=== PATIENT | male | born 1960 | race African-American/Black ===

== ENCOUNTER 2018-03-29 10:07 | Inpatient (IN) | payer OTHER ==
--- NOTE | 2018-03-29 10:52 | PDOC ---
History of Present Illness - General Chief Complaint: Wound Stated Complaint: FEVER, WOUND DISCHARGE Time Seen by Provider: 03/29/18 10:28 History Source: Patient Exam Limitations: No Limitations - History of Present Illness Initial Comments: CHIEF COMPLAINT: 57 y/o afebrile male with PMH of HTN, CHF with defibrillator and IDDM c/o worsening left foot wound. HISTORY OF PRESENT ILLNESS: The patient had most of his left big toe and all of his left second toe amputated 1 year ago. He states he did well and his healing was progressing well until about 2.5 months ago when it started getting worse. He was going for wound care at another facility but would like a 2nd opinion and admits there has been pus draining from his big toe for a few weeks and he admits to intermittent tactile fevers. He denies streaking and all other symptoms. Vital signs on arrival are within normal limits. REVIEW OF SYSTEMS: GENERAL/CONSTITUTIONAL: Tactile fever/chills. No weakness. No weight change. MUSCULOSKELETAL: No joint or muscle swelling or pain. No neck or back pain. SKIN: +draining wound to left big toe NEUROLOGIC: No headache, vertigo, loss of consciousness, or loss of sensation. PHYSICAL EXAM: VITAL_SIGNS: within normal limits GENERAL_APPEARANCE: alert, cooperative, no obvious discomfort. MENTAL_STATUS: speech clear, oriented X 3, responds appropriately to questions. NEURO: motor intact and sensory intact in injured extremity. EXTREMITIES: Left foot with significant brawny edema. Extremely swollen left big toe with open wound to plantar surface with active drainage of purulent fluid. No streaking or warm. Tip of big toe is TTP. SKIN: warm, dry, good color. Past History - Past Medical History Allergies/Adverse Reactions: Allergies Allergy/AdvReac Type Severity Reaction Status Date / Time No Known Allergies Allergy Verified 03/29/18 10:09 Home Medications: Ambulatory Orders Furosemide [Lasix] 40 mg PO DAILY 03/29/18 Insulin Aspart [Novolog] 100 unit SQ DAILY 03/29/18 Insulin Glargine,Hum.rec.anlog [Lantus] 45 unit SQ DAILY 03/29/18 Ramipril [Altace] 2.5 mg PO DAILY 03/29/18 COPD: No Diabetes: Yes HTN: Yes Other medical history: NEUROPATHY - Suicide/Smoking/Psychosocial Hx Smoking History: Current every day smoker Have you smoked in the past 12 months: Yes Number of Cigarettes Smoked Daily: 20 Information on smoking cessation initiated: Yes 'Breaking Loose' booklet given: 03/29/18 Hx Alcohol Use: No Drug/Substance Use Hx: Yes (COCCAINE) Substance Use Type: Cocaine *Physical Exam - Vital Signs Last Vital Signs Temp Pulse Resp BP Pulse Ox 98.2 F 94 H 18 142/81 100 03/29/18 10:10 03/29/18 10:10 03/29/18 10:10 03/29/18 10:10 03/29/18 10:10 ED Treatment Course - LABORATORY CBC & Chemistry Diagram: 03/29/18 11:50 03/29/18 11:50 Medical Decision Making - Medical Decision Making A/P: 57 y/o male with diabetic wound infection. Plan is as follows: 1. toe xray 2. Labs Toe xray IMPRESSION: destructive process of the left big toe. SOft tissue swelling and soft tissue air. concerned for Osteomyelitis. Will admit to Dr. eaton. Dr. Eaton accepts admission. Wants Dr. Ventura consult. Will start patient on IV Levaquin. *DC/Admit/Observation/Transfer Diagnosis at time of Disposition: Toe infection Cellulitis and abscess of toe Qualifiers: Laterality: left Qualified Code(s): L03.032 - Cellulitis of left toe - Discharge Dispostion Condition at time of disposition: Stable Decision to Admit order: Yes - Referrals Referrals: Sera Tim MD [Primary Care Provider] - - Patient Instructions - Post Discharge Activity
[2018-03-29 12:05] LABS: BASO % 0.7 % (0-2.0); EOS % 3.3 % (0-4.5); HEMATOCRIT 37.3 % (35.4-49); HEMOGLOBIN 12.3 GM/dL (11.7-16.9); LYMPH % 22.5 % (8-40); MCH 28.4 pg (25.7-33.7); MEAN PLT VOLUME 8.8 fl (7.5-11.1); MONO % 4.6 % (3.8-10.2); NEUT % 68.9 % (42.8-82.8); PLATELET COUNT 275 K/MM3 (134-434); RBC 4.34 M/mm3 (4.00-5.60); RDW 15.3 % (11.9-15.9); WHITE BLOOD COUNT 9.3 K/mm3 (4.0-10.0)
[2018-03-29 12:37] LABS: ALBUMIN 2.8 g/dl (3.4-5.0); ANION GAP 6 (8-16); BLOOD UREA NITROGEN 8 mg/dL (7-18); CALCIUM 8.7 mg/dL (8.5-10.1); CHLORIDE 102 mmol/L (98-107); CO2 30 mmol/L (21-32); GLUCOSE,RANDOM 116 mg/dL (74-106); SODIUM 138 mmol/L (136-145)
[2018-03-29 12:41] LABS: ALK PHOS 98 U/L (45-117); BILIRUBIN,TOTAL 0.4 mg/dL (0.2-1.0); SGOT/AST 12 U/L (15-37); SGPT/ALT 15 U/L (12-78); TOT PROT 8.6 g/dl (6.4-8.2)
--- NOTE | 2018-03-29 16:33 | HP ---
Admitting History and Physical - Primary Care Physician PCP: Tomas Fong - Admission History of Present Illness: The patient had most of his left big toe and all of his left second toe amputated 1 year ago. He states he did well and his healing was progressing well until about 2.5 months ago when it started getting worse. He was going for wound care at another facility but would like a 2nd opinion and admits there has been pus draining from his big toe for a few weeks and he admits to intermittent tactile fevers. He denies streaking and all other symptoms. - Smoking History Smoking history: Current every day smoker Have you smoked in the past 12 months: Yes Aproximately how many cigarettes per day: 20 - Alcohol/Substance Use Hx Alcohol Use: No Home Medications - Allergies Allergies/Adverse Reactions: Allergies Allergy/AdvReac Type Severity Reaction Status Date / Time No Known Allergies Allergy Verified 03/29/18 10:09 - Home Medications Home Medications: Ambulatory Orders Furosemide [Lasix] 40 mg PO DAILY 03/29/18 Insulin Aspart [Novolog] 100 unit SQ ASDIR 03/29/18 Insulin Glargine,Hum.rec.anlog [Lantus] 45 unit SQ DAILY 03/29/18 Pregabalin [Lyrica] 100 mg PO BID 03/29/18 Ramipril [Altace] 2.5 mg PO DAILY 03/29/18 Physical Examination Vital Signs: Vital Signs Temperature 98.4 F 03/29/18 15:32 Pulse Rate 82 03/29/18 15:32 Respiratory Rate 20 03/29/18 15:32 Blood Pressure 153/88 03/29/18 15:32 O2 Sat by Pulse Oximetry (%) 100 03/29/18 10:10 Constitutional: Yes: No Distress HENT: Yes: Atraumatic Neck: Yes: Supple Cardiovascular: Yes: Regular Rate and Rhythm Respiratory: Yes: CTA Bilaterally Gastrointestinal: Yes: Normal Bowel Sounds Extremities: Yes: Other (left toe osteo) Neurological: Yes: Alert, Oriented Labs: CBC, BMP 03/29/18 11:50 03/29/18 11:50 Problem List - Problems (1) Cellulitis and abscess of toe Assessment/Plan: on iv abx xray done d/w podiatry for OR next week Code(s): L03.039 - CELLULITIS OF UNSPECIFIED TOE; L02.619 - CUTANEOUS ABSCESS OF UNSPECIFIED FOOT Qualifiers: Laterality: left Qualified Code(s): L03.032 - Cellulitis of left toe; L02.612 - Cutaneous abscess of left foot (2) Diabetes Assessment/Plan: on insulin bgms sliding scale Code(s): E11.9 - TYPE 2 DIABETES MELLITUS WITHOUT COMPLICATIONS Assessment/Plan Laboratory Tests 03/29/18 03/29/18 03/29/18 10:32 11:50 11:50 WBC 9.3 RBC 4.34 Hgb 12.3 Hct 37.3 MCV 86.0 MCH 28.4 MCHC 33.0 RDW 15.3 Plt Count 275 MPV 8.8 Absolute Neuts (auto) 6.4 Neutrophils % 68.9 Lymphocytes % 22.5 Monocytes % 4.6 Eosinophils % 3.3 Basophils % 0.7 Nucleated RBC % 0 Sodium 138 Potassium 4.0 Chloride 102 Carbon Dioxide 30 Anion Gap 6 L BUN 8 Creatinine 1.0 Creat Clearance w eGFR > 60 POC Glucometer 123.66752 Random Glucose 116 H Lactic Acid Calcium 8.7 Total Bilirubin 0.4 AST 12 L ALT 15 Alkaline Phosphatase 98 Total Protein 8.6 H Albumin 2.8 L Urine Color Urine Appearance Urine pH Ur Specific [place] Urine Protein Urine Glucose (UA) Urine Ketones Urine Blood Urine Nitrite Urine Bilirubin Urine Urobilinogen Ur Leukocyte Esterase Urine WBC (Auto) Urine RBC (Auto) Ur Epithelial Cells Urine Mucus 03/29/18 03/29/18 03/29/18 11:50 17:09 17:35 WBC RBC Hgb Hct MCV MCH MCHC RDW Plt Count MPV Absolute Neuts (auto) Neutrophils % Lymphocytes % Monocytes % Eosinophils % Basophils % Nucleated RBC % Sodium Potassium Chloride Carbon Dioxide Anion Gap BUN Creatinine Creat Clearance w eGFR POC Glucometer 235 Random Glucose Lactic Acid 1.2 Calcium Total Bilirubin AST ALT Alkaline Phosphatase Total Protein Albumin Urine Color Dkyellow Urine Appearance Clear Urine pH 5.0 Ur Specific [place] 1.024 Urine Protein 2+ H Urine Glucose (UA) Negative Urine Ketones Negative Urine Blood Negative Urine Nitrite Negative Urine Bilirubin Negative Urine Urobilinogen 4.0 e.u/dl Ur Leukocyte Esterase Negative Urine WBC (Auto) 3 Urine RBC (Auto) 2 Ur Epithelial Cells Rare Urine Mucus Few Active Medications Generic Name Dose Route Start Last Admin Trade Name Freq PRN Reason Stop Dose Admin Acetaminophen 650 mg 03/29/18 16:34 03/29/18 17:17 Tylenol - PO 650 mg Q6H PRN Administration FEVER Furosemide 40 mg 03/30/18 10:00 Lasix - PO DAILY [facility] Heparin Sodium (Porcine) 5,000 unit 03/29/18 22:00 Heparin - SQ BID [facility] Piperacillin Sod/Tazobactam 50 mls @ 100 mls/hr 03/29/18 18:00 03/29/18 17:17 Sod 3.375 gm/ Dextrose IVPB 100 mls/hr Q8H-IV [facility] Administration Protocol Insulin Aspart 1 vial 03/29/18 22:00 03/29/18 17:33 Novolog Vial Sliding Scale - SQ 6 units ACHS [facility] Administration Protocol Insulin Detemir 45 units 03/30/18 07:00 Levemir Vial SQ 0700 [facility] Nicotine 21 mg 03/29/18 20:15 Nicoderm Patch - TD DAILY [facility] Oxycodone HCl 10 mg 03/29/18 16:34 03/29/18 17:15 Roxicodone - PO 10 mg Q6H PRN Administration PAIN LEVEL 4 - 6 Ramipril 2.5 mg 03/30/18 10:00 Altace - PO DAILY [facility]
--- NOTE | 2018-03-29 16:39 | CON.ID ---
Consult Consult Specialty:: infectious diseases Reason for Consultation:: infected lt toe - History of Present Illness Chief Complaint: pus from the left toe and non healing wound of the left toe History of Present Illness: 57 y/o afebrile male with PMH of HTN, CHF with defibrillator and IDDM c/o worsening left foot wound. this patient coming in because he noticed pus draining from the left toe The patient had most of his left big toe and all of his left second toe amputated 1 year ago. He states he did well and his healing was progressing well until about 2.5 months ago when it started getting worse. He was going for wound care at another facility but would like a 2nd opinion and admits there has been pus draining from his big toe for a few weeks and he admits to intermittent tactile fevers. patient also mentions that all of his skin over the toe very ragged and pus comng out also he has two openings present currently he is stable and no other issues - History Source History Provided By: Patient Limitations to Obtaining History: No Limitations - Alcohol/Substance Use Hx Alcohol Use: No - Smoking History Smoking history: Current every day smoker Have you smoked in the past 12 months: Yes Aproximately how many cigarettes per day: 20 Home Medications - Allergies Allergies/Adverse Reactions: Allergies Allergy/AdvReac Type Severity Reaction Status Date / Time No Known Allergies Allergy Verified 03/29/18 10:09 - Home Medications Home Medications: Ambulatory Orders Furosemide [Lasix] 40 mg PO DAILY 03/29/18 Insulin Aspart [Novolog] 100 unit SQ ASDIR 03/29/18 Insulin Glargine,Hum.rec.anlog [Lantus] 45 unit SQ DAILY 03/29/18 Pregabalin [Lyrica] 100 mg PO BID 03/29/18 Ramipril [Altace] 2.5 mg PO DAILY 03/29/18 Review of Systems - Review of Systems Constitutional: reports: Fever Eyes: reports: No Symptoms HENT: reports: No Symptoms Neck: reports: No Symptoms Cardiovascular: reports: No Symptoms Respiratory: reports: No Symptoms Gastrointestinal: reports: No Symptoms Musculoskeletal: reports: No Symptoms Integumentary: reports: Erythema, Wound Neurological: reports: No Symptoms Endocrine: reports: No Symptoms Hematology/Lymphatic: reports: No Symptoms Psychiatric: reports: No Symptoms Physical Exam Vital Signs: Vital Signs Temperature 98.4 F 03/29/18 15:32 Pulse Rate 82 03/29/18 15:32 Respiratory Rate 20 03/29/18 15:32 Blood Pressure 153/88 03/29/18 15:32 O2 Sat by Pulse Oximetry (%) 100 03/29/18 10:10 Constitutional: Yes: Well Nourished, No Distress, Calm, Obese Neck: Yes: Supple Cardiovascular: Yes: Regular Rate and Rhythm Respiratory: Yes: Regular, CTA Bilaterally Gastrointestinal: Yes: Normal Bowel Sounds, Soft Musculoskeletal: Yes: WNL Extremities: Yes: Erythema (of the left foot), Other Wound/Incision: Yes: Draining (left toes with non healing ulcers) Neurological: Yes: Alert, Oriented Psychiatric: Yes: Alert, Oriented Labs: CBC, BMP 03/29/18 11:50 03/29/18 11:50 Imaging - Results X-ray: Report Reviewed, Image Reviewed Assessment/Plan Problem List - Problems (1) Cellulitis and abscess of toe Code(s): L03.039 - CELLULITIS OF UNSPECIFIED TOE; L02.619 - CUTANEOUS ABSCESS OF UNSPECIFIED FOOT Qualifiers: Laterality: left Qualified Code(s): L03.032 - Cellulitis of left toe; L02.612 - Cutaneous abscess of left foot 2 osteo of the toe multiple medical problems looking at the patients toe i ahve no doubt that the patient has osteo plan will start patient on abx podiatry patient probably will need amputation rest continue current mgmt will ask for imaging studies
[2018-03-29] MEDS ORDERED: PIPERACILLIN/TAZOBACTAM 3.375 GM VIAL IVPB ONE (17:14)
[2018-03-29] MEDS ORDERED: DEXTROSE 5%-WATER - 50 ML IVPB ONE (17:14)
[2018-03-29] MEDS: oxyCODONE HCL 5 MG TABLET PO PRN ×2 (17:15→23:18)
[2018-03-29] MEDS: ACETAMINOPHEN 325 MG TABLET (FP) PO PRN ×2 (17:17→23:25)
[2018-03-29] MEDS: PIPERACILLIN/TAZOB 3.375 GM 3.375 GM in DEXTROSE 5%-WATER - 50 ML IVPB SCH (17:17)
[2018-03-29] MEDS: INSULIN SLIDING SCALE (NOVOLOG) 1 VIAL SQ SCH ×2 (17:33→21:55)
[2018-03-29 19:52] LABS: URINE APPEARANCE CLEAR; URINE BILIRUBIN NEGATIVE (<2.0 mg/dL); URINE COLOR DKYELLOW; URINE GLUCOSE (UA) NEGATIVE (NEGATIVE); URINE KETONE NEGATIVE (NEGATIVE); URINE LEUK ESTERASE NEGATIVE (NEGATIVE); URINE NITRITE NEGATIVE (NEGATIVE); URINE UROBILINOGEN 4.0 E.U/dl mg/dL (0.2-1.0)
[2018-03-29 20:00] LABS: URINE PROTEIN 2+ (NEGATIVE)
[2018-03-29 20:03] LABS: EPI CELLS RARE /HPF (FEW); URINE MUCUS FEW
[2018-03-29] MEDS: NICOTINE 21 MG/24 HOURS TOPICAL PATCH TD SCH (20:22)
[2018-03-29] MEDS ORDERED: INSULIN (LEVEMIR) 100 UNITS/ML UNITS SQ ONE (21:37)
[2018-03-29] MEDS ORDERED: INSULIN (NOVOLOG) ASPART 100 UNITS/ML 10ML VIAL ONE (21:37)
[2018-03-29] MEDS: HEPARIN NA (PORCINE) 5,000 UNITS/ML 1ML VIAL SQ SCH (21:55)
[2018-03-29] MEDS: POLYETHYLENE GLYCOL 3350 119 GM BTL PO SCH (21:55)
--- NOTE | 2018-03-29 22:12 | PN ---
Progress Note (short form) - Note Progress Note: Vascular surgery Pt seen and examined. Left foot wound on great toe draining pus. Pt being taken care of by podiatry at [facility]. Pt has this foot ulcer for over 3-4 months. Now comes in for eval here. Pt has had picc line for osteo of that foot in past. Pt has good DP pulse in left foot. Recc that podiatry eval. Pt might need amputation of that toe Cleared from a vascular standpoint for podiatry intervention. Filiberto to wound daily Grday Murcia DO
[2018-03-30] MEDS ORDERED: PIPERACILLIN/TAZOBACTAM 3.375 GM VIAL IVPB ONE ×3 (01:33→17:49)
[2018-03-30] MEDS ORDERED: DEXTROSE 5%-WATER - 50 ML IVPB ONE ×3 (01:34→17:50)
[2018-03-30] MEDS: PIPERACILLIN/TAZOB 3.375 GM 3.375 GM in DEXTROSE 5%-WATER - 50 ML IVPB SCH ×3 (01:49→18:29)
[2018-03-30] MEDS: INSULIN (LEVEMIR) 100 UNITS/ML UNITS SQ SCH (06:43)
[2018-03-30] MEDS: INSULIN SLIDING SCALE (NOVOLOG) 1 VIAL SQ SCH ×4 (06:44→21:12)
[2018-03-30] MEDS: RAMIPRIL 2.5 MG CAPSULE (FP) PO SCH (10:21)
[2018-03-30] MEDS: NICOTINE 21 MG/24 HOURS TOPICAL PATCH TD SCH (10:21)
[2018-03-30] MEDS: FUROSEMIDE 40 MG TABLET (FP) PO SCH (10:21)
[2018-03-30] MEDS: HEPARIN NA (PORCINE) 5,000 UNITS/ML 1ML VIAL SQ SCH ×2 (10:21→21:05)
[2018-03-30] MEDS: oxyCODONE HCL 5 MG TABLET PO PRN ×2 (10:22→18:56)
[2018-03-30] MEDS: POLYETHYLENE GLYCOL 3350 119 GM BTL PO SCH ×2 (10:37→21:05)
[2018-03-30] MEDS: COLLAGENASE CLOSTRIDIUM HIST. 30 GRAMS TUBE TP SCH (10:39)
--- NOTE | 2018-03-30 15:33 | PN ---
Progress Note, Physician History of Present Illness: patient stable no complaints wound looks dry - Current Medication List Current Medications: Active Medications Acetaminophen (Tylenol -) 650 mg PO Q6H PRN PRN Reason: FEVER Last Admin: 03/29/18 23:25 Dose: 650 mg Collagenase (Santyl -) 1 applic TP DAILY [facility] Furosemide (Lasix -) 40 mg PO DAILY [facility] Last Admin: 03/30/18 10:21 Dose: 40 mg Heparin Sodium (Porcine) (Heparin -) 5,000 unit SQ BID [facility] Last Admin: 03/30/18 10:21 Dose: 5,000 unit Piperacillin Sod/Tazobactam (Sod 3.375 gm/ Dextrose) 50 mls @ 100 mls/hr IVPB Q8H-IV [facility]; Protocol Last Admin: 03/30/18 10:21 Dose: 100 mls/hr Insulin Aspart (Novolog Vial Sliding Scale -) 1 vial SQ ACHS [facility]; Protocol Last Admin: 03/30/18 12:12 Dose: 8 units Insulin Detemir (Levemir Vial) 45 units SQ 0700 [facility] Last Admin: 03/30/18 06:43 Dose: 45 units Nicotine (Nicoderm Patch -) 21 mg TD DAILY [facility] Last Admin: 03/30/18 10:21 Dose: 21 mg Oxycodone HCl (Roxicodone -) 10 mg PO Q6H PRN PRN Reason: PAIN LEVEL 4 - 6 Last Admin: 03/30/18 10:22 Dose: 10 mg Polyethylene Glycol (Miralax (For Daily Use) -) 17 gm PO BID [facility] Last Admin: 03/30/18 10:37 Dose: 17 gm Ramipril (Altace -) 2.5 mg PO DAILY [facility] Last Admin: 03/30/18 10:21 Dose: 2.5 mg - Objective Vital Signs: Vital Signs Temperature 98.3 F 03/30/18 15:11 Pulse Rate 67 03/30/18 15:11 Respiratory Rate 20 03/30/18 15:11 Blood Pressure 158/83 03/30/18 15:11 O2 Sat by Pulse Oximetry (%) 98 03/30/18 09:00 Constitutional: Yes: No Distress, Calm, Obese Eyes: Yes: Conjunctiva Clear Cardiovascular: Yes: Regular Rate and Rhythm Respiratory: Yes: Regular, CTA Bilaterally Gastrointestinal: Yes: Normal Bowel Sounds, Soft Musculoskeletal: Yes: WNL Extremities: Yes: Other (left foot cellulitis) Wound/Incision: Yes: Other (wound noted) Neurological: Yes: Alert, Oriented Psychiatric: Yes: Alert, Oriented Labs: CBC, BMP 03/29/18 11:50 03/29/18 11:50 Assessment/Plan Problem List - Problems (1) Cellulitis and abscess of toe Code(s): L03.039 - CELLULITIS OF UNSPECIFIED TOE; L02.619 - CUTANEOUS ABSCESS OF UNSPECIFIED FOOT Qualifiers: Laterality: left Qualified Code(s): L03.032 - Cellulitis of left toe; L02.612 - Cutaneous abscess of left foot 2 osteo of the toe multiple medical problems looking at the patients toe i ahve no doubt that the patient has osteo plan continue abx ordered triphase bone scan to r/o osteo patient cannot get mri has defibrillator await for podiatry team to see the patient rest as per the team looking at the wounds i think patient needs amputation of the toe
--- NOTE | 2018-03-30 17:31 | CONSULT ---
Consult - text type - Consultation Consultation Note: Patient seen in bed. States has been being treated at [facility] for wound left foot. Came here because closer to home. vss tmax=98.3 palpable pulse left foot, +missing partial big toe and total 2nd toe left, + drainage, beta hemploytic strep left foot, +destructive chages on xray, appear to be extendig to distal 1/3 or 1/2 half of first metatrsal, wbc=9.3 om previous amputation Awaiting bone scan. Will schedule after bone scan done. Anticipate debridement on [place]. Betadine dressing to left foot. Discussed with PMD. Reviewed xray. Filiberto maximize patient for Debridemet on [place]. Hgba1c ordered.
--- NOTE | 2018-03-30 20:08 | PN ---
Progress Note, Physician - Current Medication List Current Medications: Active Medications Acetaminophen (Tylenol -) 650 mg PO Q6H PRN PRN Reason: FEVER Last Admin: 03/29/18 23:25 Dose: 650 mg Collagenase (Santyl -) 1 applic TP DAILY [facility] Last Admin: 03/30/18 10:39 Dose: 1 applic Furosemide (Lasix -) 40 mg PO DAILY [facility] Last Admin: 03/30/18 10:21 Dose: 40 mg Heparin Sodium (Porcine) (Heparin -) 5,000 unit SQ BID [facility] Last Admin: 03/30/18 10:21 Dose: 5,000 unit Piperacillin Sod/Tazobactam (Sod 3.375 gm/ Dextrose) 50 mls @ 100 mls/hr IVPB Q8H-IV [facility]; Protocol Last Admin: 03/30/18 18:29 Dose: 100 mls/hr Insulin Aspart (Novolog Vial Sliding Scale -) 1 vial SQ ACHS [facility]; Protocol Last Admin: 03/30/18 17:05 Dose: 6 units Insulin Detemir (Levemir Vial) 45 units SQ 0700 [facility] Last Admin: 03/30/18 06:43 Dose: 45 units Nicotine (Nicoderm Patch -) 21 mg TD DAILY [facility] Last Admin: 03/30/18 10:21 Dose: 21 mg Oxycodone HCl (Roxicodone -) 10 mg PO Q6H PRN PRN Reason: PAIN LEVEL 4 - 6 Last Admin: 03/30/18 18:56 Dose: 10 mg Polyethylene Glycol (Miralax (For Daily Use) -) 17 gm PO BID [facility] Last Admin: 03/30/18 10:37 Dose: 17 gm Ramipril (Altace -) 2.5 mg PO DAILY [facility] Last Admin: 03/30/18 10:21 Dose: 2.5 mg - Objective Vital Signs: Vital Signs Temperature 98.0 F 03/30/18 18:40 Pulse Rate 75 03/30/18 18:40 Respiratory Rate 20 03/30/18 18:40 Blood Pressure 141/76 03/30/18 18:40 O2 Sat by Pulse Oximetry (%) 98 03/30/18 09:00 Constitutional: Yes: No Distress HENT: Yes: Atraumatic Neck: Yes: Supple Cardiovascular: Yes: Regular Rate and Rhythm Respiratory: Yes: CTA Bilaterally Gastrointestinal: Yes: Normal Bowel Sounds Extremities: Yes: Other (left foot big toe osteo missing 2nd toe) Neurological: Yes: Alert, Oriented Labs: CBC, BMP 03/29/18 11:50 03/29/18 11:50 Problem List - Problems (1) Cellulitis and abscess of toe Assessment/Plan: on iv abx xray done d/w podiatry for OR next week Code(s): L03.039 - CELLULITIS OF UNSPECIFIED TOE; L02.619 - CUTANEOUS ABSCESS OF UNSPECIFIED FOOT Qualifiers: Laterality: left Qualified Code(s): L03.032 - Cellulitis of left toe; L02.612 - Cutaneous abscess of left foot
[2018-03-30] MEDS: ZOLPIDEM TARTRATE 5 MG TABLET PO PRN (21:05)
[2018-03-30] MEDS: PREGABALIN 100 MG CAPSULE PO SCH (21:05)
[2018-03-31] MEDS ORDERED: DEXTROSE 5%-WATER - 50 ML IVPB ONE ×3 (00:16→17:43)
[2018-03-31] MEDS ORDERED: PIPERACILLIN/TAZOBACTAM 3.375 GM VIAL IVPB ONE ×2 (00:16→10:04)
[2018-03-31] MEDS: PIPERACILLIN/TAZOB 3.375 GM 3.375 GM in DEXTROSE 5%-WATER - 50 ML IVPB SCH ×2 (01:41→10:15)
[2018-03-31] MEDS: oxyCODONE HCL 5 MG TABLET PO PRN ×3 (02:52→16:25)
[2018-03-31] MEDS: INSULIN SLIDING SCALE (NOVOLOG) 1 VIAL SQ SCH ×4 (06:21→21:28)
[2018-03-31] MEDS: INSULIN (LEVEMIR) 100 UNITS/ML UNITS SQ SCH (06:26)
[2018-03-31] MEDS: RAMIPRIL 2.5 MG CAPSULE (FP) PO SCH (10:13)
[2018-03-31] MEDS: PREGABALIN 100 MG CAPSULE PO SCH ×2 (10:13→21:28)
[2018-03-31] MEDS: FUROSEMIDE 40 MG TABLET (FP) PO SCH (10:13)
[2018-03-31] MEDS: NICOTINE 21 MG/24 HOURS TOPICAL PATCH TD SCH (10:14)
[2018-03-31] MEDS: HEPARIN NA (PORCINE) 5,000 UNITS/ML 1ML VIAL SQ SCH ×2 (10:15→21:29)
[2018-03-31] MEDS: COLLAGENASE CLOSTRIDIUM HIST. 30 GRAMS TUBE TP SCH (10:15)
[2018-03-31] MEDS: POLYETHYLENE GLYCOL 3350 119 GM BTL PO SCH ×2 (10:16→21:28)
--- NOTE | 2018-03-31 13:50 | PN ---
Progress Note (short form) - Note Progress Note: Patient seen in bed and walking around the floor having bone scan today. vss palpable pulse left foot, +missing partial big toe and total 2nd toe left, + drainage, beta hemploytic strep left foot, +destructive chages on xra om previous amputation Awaiting bone scan. Will schedule after bone scan done. Betadine dressing to left foot. Discussed with ID. Filiberto medrano patient for Debridemet. ESR and CRP today.
--- NOTE | 2018-03-31 14:02 | PN ---
Progress Note, Physician History of Present Illness: stable - Current Medication List Current Medications: Active Medications Acetaminophen (Tylenol -) 650 mg PO Q6H PRN PRN Reason: FEVER Last Admin: 03/29/18 23:25 Dose: 650 mg Collagenase (Santyl -) 1 applic TP DAILY [facility] Last Admin: 03/31/18 10:15 Dose: Not Given Furosemide (Lasix -) 40 mg PO DAILY [facility] Last Admin: 03/31/18 10:13 Dose: 40 mg Heparin Sodium (Porcine) (Heparin -) 5,000 unit SQ BID [facility] Last Admin: 03/31/18 10:15 Dose: 5,000 unit Piperacillin Sod/Tazobactam (Sod 3.375 gm/ Dextrose) 50 mls @ 100 mls/hr IVPB Q8H-IV [facility]; Protocol Last Admin: 03/31/18 10:15 Dose: 100 mls/hr Insulin Aspart (Novolog Vial Sliding Scale -) 1 vial SQ ACHS [facility]; Protocol Last Admin: 03/31/18 12:15 Dose: 10 units Insulin Detemir (Levemir Vial) 45 units SQ 0700 [facility] Last Admin: 03/31/18 06:26 Dose: 45 units Nicotine (Nicoderm Patch -) 21 mg TD DAILY [facility] Last Admin: 03/31/18 10:14 Dose: 21 mg Oxycodone HCl (Roxicodone -) 10 mg PO Q6H PRN PRN Reason: PAIN LEVEL 4 - 6 Last Admin: 03/31/18 10:13 Dose: 10 mg Polyethylene Glycol (Miralax (For Daily Use) -) 17 gm PO BID [facility] Last Admin: 03/31/18 10:16 Dose: 17 gm Pregabalin (Lyrica -) 100 mg PO BID [facility] Last Admin: 03/31/18 10:13 Dose: 100 mg Ramipril (Altace -) 2.5 mg PO DAILY [facility] Last Admin: 03/31/18 10:13 Dose: 2.5 mg Zolpidem Tartrate (Ambien -) 10 mg PO HS PRN PRN Reason: INSOMNIA Last Admin: 03/30/18 21:05 Dose: 10 mg - Objective Vital Signs: Vital Signs Temperature 98.0 F 03/30/18 18:40 Pulse Rate 76 03/31/18 10:00 Respiratory Rate 18 03/31/18 10:00 Blood Pressure 138/81 03/31/18 10:00 O2 Sat by Pulse Oximetry (%) 98 03/30/18 09:00 HENT: Yes: Atraumatic Cardiovascular: Yes: Regular Rate and Rhythm Respiratory: Yes: CTA Bilaterally Gastrointestinal: Yes: Normal Bowel Sounds Extremities: Yes: Other (left foot big toe cellulitis) Neurological: Yes: Alert, Oriented Labs: CBC, BMP 03/29/18 11:50 03/29/18 11:50 Problem List - Problems (1) Cellulitis and abscess of toe Assessment/Plan: on iv abx xray done d/w podiatry for OR next week Code(s): L03.039 - CELLULITIS OF UNSPECIFIED TOE; L02.619 - CUTANEOUS ABSCESS OF UNSPECIFIED FOOT Qualifiers: Laterality: left Qualified Code(s): L03.032 - Cellulitis of left toe; L02.612 - Cutaneous abscess of left foot (2) Diabetes Assessment/Plan: on insulin Code(s): E11.9 - TYPE 2 DIABETES MELLITUS WITHOUT COMPLICATIONS
--- NOTE | 2018-03-31 14:43 | PN ---
Progress Note, Physician History of Present Illness: patient stable no complaints wound looks dry patient getting his nuclear scan - Current Medication List Current Medications: Active Medications Acetaminophen (Tylenol -) 650 mg PO Q6H PRN PRN Reason: FEVER Last Admin: 03/29/18 23:25 Dose: 650 mg Collagenase (Santyl -) 1 applic TP DAILY [facility] Last Admin: 03/31/18 10:15 Dose: Not Given Furosemide (Lasix -) 40 mg PO DAILY [facility] Last Admin: 03/31/18 10:13 Dose: 40 mg Heparin Sodium (Porcine) (Heparin -) 5,000 unit SQ BID [facility] Last Admin: 03/31/18 10:15 Dose: 5,000 unit Piperacillin Sod/Tazobactam (Sod 3.375 gm/ Dextrose) 50 mls @ 100 mls/hr IVPB Q8H-IV [facility]; Protocol Last Admin: 03/31/18 10:15 Dose: 100 mls/hr Insulin Aspart (Novolog Vial Sliding Scale -) 1 vial SQ ACHS [facility]; Protocol Last Admin: 03/31/18 12:15 Dose: 10 units Insulin Detemir (Levemir Vial) 45 units SQ 0700 [facility] Last Admin: 03/31/18 06:26 Dose: 45 units Nicotine (Nicoderm Patch -) 21 mg TD DAILY [facility] Last Admin: 03/31/18 10:14 Dose: 21 mg Oxycodone HCl (Roxicodone -) 10 mg PO Q6H PRN PRN Reason: PAIN LEVEL 4 - 6 Last Admin: 03/31/18 10:13 Dose: 10 mg Polyethylene Glycol (Miralax (For Daily Use) -) 17 gm PO BID [facility] Last Admin: 03/31/18 10:16 Dose: 17 gm Pregabalin (Lyrica -) 100 mg PO BID [facility] Last Admin: 03/31/18 10:13 Dose: 100 mg Ramipril (Altace -) 2.5 mg PO DAILY [facility] Last Admin: 03/31/18 10:13 Dose: 2.5 mg Zolpidem Tartrate (Ambien -) 10 mg PO HS PRN PRN Reason: INSOMNIA Last Admin: 03/30/18 21:05 Dose: 10 mg - Objective Vital Signs: Vital Signs Temperature 98.0 F 03/30/18 18:40 Pulse Rate 76 03/31/18 10:00 Respiratory Rate 18 03/31/18 10:00 Blood Pressure 138/81 03/31/18 10:00 O2 Sat by Pulse Oximetry (%) 98 03/30/18 09:00 Constitutional: Yes: No Distress, Calm Cardiovascular: Yes: Regular Rate and Rhythm Respiratory: Yes: Regular, CTA Bilaterally Gastrointestinal: Yes: Normal Bowel Sounds, Soft Musculoskeletal: Yes: WNL Extremities: Yes: Other Neurological: Yes: Alert, Oriented Psychiatric: Yes: Alert, Oriented Labs: CBC, BMP 03/29/18 11:50 03/29/18 11:50 Assessment/Plan Problem List - Problems (1) Cellulitis and abscess of toe Code(s): L03.039 - CELLULITIS OF UNSPECIFIED TOE; L02.619 - CUTANEOUS ABSCESS OF UNSPECIFIED FOOT Qualifiers: Laterality: left Qualified Code(s): L03.032 - Cellulitis of left toe; L02.612 - Cutaneous abscess of left foot 2 osteo of the toe wound infection multiple medical problems plan will change abx to cefazolin rest continue current mgmt await for report of the study rest continue current mgmt
[2018-03-31] MEDS ORDERED: ceFAZolin SODIUM 1 GM VIAL ONE (17:43)
[2018-03-31] MEDS: CEFAZOLIN 1 GM in DEXTROSE 5%-WATER - 50 ML IVPB SCH (17:59)
[2018-03-31] MEDS: ZOLPIDEM TARTRATE 5 MG TABLET PO PRN (21:28)
[2018-04-01] MEDS ORDERED: DEXTROSE 5%-WATER - 50 ML IVPB ONE ×3 (00:17→17:30)
[2018-04-01] MEDS ORDERED: ceFAZolin SODIUM 1 GM VIAL ONE ×3 (00:17→17:30)
[2018-04-01] MEDS: oxyCODONE HCL 5 MG TABLET PO PRN ×3 (01:48→18:34)
[2018-04-01] MEDS: CEFAZOLIN 1 GM in DEXTROSE 5%-WATER - 50 ML IVPB SCH ×3 (01:48→18:35)
[2018-04-01] MEDS: INSULIN SLIDING SCALE (NOVOLOG) 1 VIAL SQ SCH ×4 (06:33→22:15)
[2018-04-01] MEDS: INSULIN (LEVEMIR) 100 UNITS/ML UNITS SQ SCH (06:33)
[2018-04-01] MEDS ORDERED: INSULIN (NOVOLOG) ASPART 100 UNITS/ML 10ML VIAL ONE (06:39)
[2018-04-01] MEDS: HEPARIN NA (PORCINE) 5,000 UNITS/ML 1ML VIAL SQ SCH ×2 (09:43→22:14)
[2018-04-01] MEDS: FUROSEMIDE 40 MG TABLET (FP) PO SCH (09:43)
[2018-04-01] MEDS: RAMIPRIL 2.5 MG CAPSULE (FP) PO SCH (09:43)
[2018-04-01] MEDS: NICOTINE 21 MG/24 HOURS TOPICAL PATCH TD SCH (09:43)
[2018-04-01] MEDS: PREGABALIN 100 MG CAPSULE PO SCH ×2 (09:43→22:14)
[2018-04-01] MEDS: POLYETHYLENE GLYCOL 3350 119 GM BTL PO SCH ×2 (09:44→22:16)
[2018-04-01] MEDS: COLLAGENASE CLOSTRIDIUM HIST. 30 GRAMS TUBE TP SCH (09:44)
--- NOTE | 2018-04-01 12:26 | PN ---
Progress Note (short form) - Note Progress Note: Patient seen in bed having breakfast. Wants to go home and come back for procedure. vss palpable pulse left foot, +missing partial big toe and total 2nd toe left, + drainage, beta hemploytic strep left foot, +destructive chages on xray, +bone scan for destruction of bone to midshaft 1st met, ESR=91, crp=1.9 om previous amputation Patient is scheduled for OR on Tuesday at 10am. Betadine dressing to left foot. Patient advised to stay and not go home as it would delay scheduling. However, if he did leave he could leave against medical advice. Will follow. WBC today.
--- NOTE | 2018-04-01 17:46 | PN ---
Progress Note, Physician History of Present Illness: stable - Current Medication List Current Medications: Active Medications Acetaminophen (Tylenol -) 650 mg PO Q6H PRN PRN Reason: FEVER Last Admin: 03/29/18 23:25 Dose: 650 mg Collagenase (Santyl -) 1 applic TP DAILY [facility] Last Admin: 04/01/18 09:44 Dose: Not Given Furosemide (Lasix -) 40 mg PO DAILY [facility] Last Admin: 04/01/18 09:43 Dose: 40 mg Heparin Sodium (Porcine) (Heparin -) 5,000 unit SQ BID [facility] Last Admin: 04/01/18 09:43 Dose: 5,000 unit Cefazolin Sodium 1 gm/ (Dextrose) 50 mls @ 100 mls/hr IVPB Q8H-IV [facility] Last Admin: 04/01/18 09:43 Dose: 100 mls/hr Insulin Aspart (Novolog Vial Sliding Scale -) 1 vial SQ ACHS [facility]; Protocol Last Admin: 04/01/18 12:07 Dose: 10 units Insulin Detemir (Levemir Vial) 45 units SQ 0700 [facility] Last Admin: 04/01/18 06:33 Dose: 45 units Nicotine (Nicoderm Patch -) 21 mg TD DAILY [facility] Last Admin: 04/01/18 09:43 Dose: 21 mg Polyethylene Glycol (Miralax (For Daily Use) -) 17 gm PO BID [facility] Last Admin: 04/01/18 09:44 Dose: 17 gm Pregabalin (Lyrica -) 100 mg PO BID [facility] Last Admin: 04/01/18 09:43 Dose: 100 mg Ramipril (Altace -) 2.5 mg PO DAILY [facility] Last Admin: 04/01/18 09:43 Dose: 2.5 mg Zolpidem Tartrate (Ambien -) 10 mg PO HS PRN PRN Reason: INSOMNIA Last Admin: 03/31/18 21:28 Dose: 10 mg - Objective Vital Signs: Vital Signs Temperature 98.0 F 04/01/18 15:22 Pulse Rate 80 04/01/18 15:22 Respiratory Rate 20 04/01/18 15:22 Blood Pressure 140/74 04/01/18 15:22 O2 Sat by Pulse Oximetry (%) 98 03/30/18 09:00 HENT: Yes: Atraumatic Neck: Yes: Supple Cardiovascular: Yes: Regular Rate and Rhythm Respiratory: Yes: CTA Bilaterally Gastrointestinal: Yes: Normal Bowel Sounds Extremities: Yes: Other (L big toe cellulitis) Neurological: Yes: Alert, Oriented Labs: CBC, BMP 03/29/18 11:50 03/29/18 11:50 Problem List - Problems (1) Cellulitis and abscess of toe Assessment/Plan: on iv abx xray done d/w podiatry for OR next week tuesday Code(s): L03.039 - CELLULITIS OF UNSPECIFIED TOE; L02.619 - CUTANEOUS ABSCESS OF UNSPECIFIED FOOT Qualifiers: Laterality: left Qualified Code(s): L03.032 - Cellulitis of left toe; L02.612 - Cutaneous abscess of left foot (2) Diabetes Code(s): E11.9 - TYPE 2 DIABETES MELLITUS WITHOUT COMPLICATIONS
--- NOTE | 2018-04-01 18:23 | PN ---
Progress Note, Physician History of Present Illness: Pt seen and examined. Chart reviewed, lab/imaging results noted. Pt c/o constipation. Remains afebrile. - Current Medication List Current Medications: Active Medications Acetaminophen (Tylenol -) 650 mg PO Q6H PRN PRN Reason: FEVER Last Admin: 03/29/18 23:25 Dose: 650 mg Collagenase (Santyl -) 1 applic TP DAILY [facility] Last Admin: 04/01/18 09:44 Dose: Not Given Furosemide (Lasix -) 40 mg PO DAILY [facility] Last Admin: 04/01/18 09:43 Dose: 40 mg Heparin Sodium (Porcine) (Heparin -) 5,000 unit SQ BID [facility] Last Admin: 04/01/18 09:43 Dose: 5,000 unit Cefazolin Sodium 1 gm/ (Dextrose) 50 mls @ 100 mls/hr IVPB Q8H-IV [facility] Last Admin: 04/01/18 09:43 Dose: 100 mls/hr Insulin Aspart (Novolog Vial Sliding Scale -) 1 vial SQ ACHS [facility]; Protocol Last Admin: 04/01/18 12:07 Dose: 10 units Insulin Detemir (Levemir Vial) 45 units SQ 0700 [facility] Last Admin: 04/01/18 06:33 Dose: 45 units Nicotine (Nicoderm Patch -) 21 mg TD DAILY [facility] Last Admin: 04/01/18 09:43 Dose: 21 mg Polyethylene Glycol (Miralax (For Daily Use) -) 17 gm PO BID [facility] Last Admin: 04/01/18 09:44 Dose: 17 gm Pregabalin (Lyrica -) 100 mg PO BID [facility] Last Admin: 04/01/18 09:43 Dose: 100 mg Ramipril (Altace -) 2.5 mg PO DAILY [facility] Last Admin: 04/01/18 09:43 Dose: 2.5 mg Zolpidem Tartrate (Ambien -) 10 mg PO HS PRN PRN Reason: INSOMNIA Last Admin: 03/31/18 21:28 Dose: 10 mg - Objective Vital Signs: Vital Signs Temperature 99.0 F 04/01/18 18:11 Pulse Rate 74 04/01/18 18:11 Respiratory Rate 20 04/01/18 18:11 Blood Pressure 150/83 04/01/18 18:11 O2 Sat by Pulse Oximetry (%) 98 03/30/18 09:00 Constitutional: Yes: No Distress, Calm Cardiovascular: Yes: Regular Rate and Rhythm Respiratory: Yes: Regular Gastrointestinal: Yes: Normal Bowel Sounds, Soft Extremities: Yes: Amputation (Lt partial 1st toe/2nd toe) Edema: LLE: 2+ Integumentary: Yes: Other (LLE edema/warmth/foot erythema +ulcers) Wound/Incision: Yes: Dressing Dry and Intact Neurological: Yes: Alert, Oriented Labs: CBC, BMP 03/29/18 11:50 03/29/18 11:50 - ....Imaging Other: Report Reviewed (bone scan) Problem List - Problems (1) Cellulitis and abscess of toe Code(s): L03.039 - CELLULITIS OF UNSPECIFIED TOE; L02.619 - CUTANEOUS ABSCESS OF UNSPECIFIED FOOT Qualifiers: Laterality: left Qualified Code(s): L03.032 - Cellulitis of left toe; L02.612 - Cutaneous abscess of left foot (2) Diabetes Code(s): E11.9 - TYPE 2 DIABETES MELLITUS WITHOUT COMPLICATIONS Assessment/Plan 57 y.o. male with PMH of HTN, CHF with defibrillator and IDDM s/p previous Lt foot toe amputations presenting with non-healing ulcers with drainage and Lt leg edema/pain Lt midfoot/MT Osteomyelitis - MRSA/group B Strep growth in wound cultures -- cont. Cefazolin -- scheduled for OR -- pain control with bowel regimen -- glycemic control -- monitor esr,crp
[2018-04-01] MEDS ORDERED: oxyCODONE HCL 5 MG TABLET ONE (18:33)
[2018-04-01] MEDS: SENNOSIDES 8.6MG TABLET (FP) PO PRN (22:14)
[2018-04-02] MEDS: POLYETHYLENE GLYCOL 3350 119 GM BTL PO SCH ×3 (01:12→22:26)
[2018-04-02] MEDS ORDERED: ceFAZolin SODIUM 1 GM VIAL ONE ×3 (01:24→17:02)
[2018-04-02] MEDS ORDERED: DEXTROSE 5%-WATER - 50 ML IVPB ONE ×3 (01:24→17:02)
[2018-04-02] MEDS: CEFAZOLIN 1 GM in DEXTROSE 5%-WATER - 50 ML IVPB SCH ×3 (01:31→17:30)
[2018-04-02] MEDS: ZOLPIDEM TARTRATE 5 MG TABLET PO PRN ×2 (02:23→22:25)
[2018-04-02] MEDS: ACETAMINOPHEN 325 MG TABLET (FP) PO PRN (02:42)
[2018-04-02] MEDS: INSULIN SLIDING SCALE (NOVOLOG) 1 VIAL SQ SCH ×4 (06:24→22:25)
[2018-04-02] MEDS: INSULIN (LEVEMIR) 100 UNITS/ML UNITS SQ SCH (06:24)
[2018-04-02 08:50] LABS: BASO % 0.5 % (0-2.0); EOS % 4.8 % (0-4.5); HEMATOCRIT 35.5 % (35.4-49); HEMOGLOBIN 11.6 GM/dL (11.7-16.9); LYMPH % 32.1 % (8-40); MCHC 32.7 g/dl (32.0-35.9); MEAN CELL VOLUME 85.9 fl (80-96); MEAN PLT VOLUME 9.1 fl (7.5-11.1); MONO % 4.8 % (3.8-10.2); NEUT % 57.8 % (42.8-82.8); PLATELET COUNT 213 K/MM3 (134-434); RBC 4.14 M/mm3 (4.00-5.60); RDW 15.6 % (11.9-15.9); WHITE BLOOD COUNT 7.5 K/mm3 (4.0-10.0)
[2018-04-02] MEDS: HEPARIN NA (PORCINE) 5,000 UNITS/ML 1ML VIAL SQ SCH ×2 (10:40→22:24)
[2018-04-02] MEDS: RAMIPRIL 2.5 MG CAPSULE (FP) PO SCH (10:40)
[2018-04-02] MEDS: FUROSEMIDE 40 MG TABLET (FP) PO SCH (10:40)
[2018-04-02] MEDS: PREGABALIN 100 MG CAPSULE PO SCH ×2 (10:40→22:25)
[2018-04-02] MEDS: NICOTINE 21 MG/24 HOURS TOPICAL PATCH TD SCH (10:41)
[2018-04-02] MEDS: COLLAGENASE CLOSTRIDIUM HIST. 30 GRAMS TUBE TP SCH (10:41)
--- NOTE | 2018-04-02 12:05 | PN ---
Progress Note, Physician History of Present Illness: Pt remains alert, afebrile. Tolerating antibiotics. Still with constipation. No other complaints. - Current Medication List Current Medications: Active Medications Acetaminophen (Tylenol -) 650 mg PO Q6H PRN PRN Reason: FEVER Last Admin: 04/02/18 02:42 Dose: 650 mg Collagenase (Santyl -) 1 applic TP DAILY [facility] Last Admin: 04/02/18 10:41 Dose: Not Given Furosemide (Lasix -) 40 mg PO DAILY [facility] Last Admin: 04/02/18 10:40 Dose: 40 mg Heparin Sodium (Porcine) (Heparin -) 5,000 unit SQ BID [facility] Last Admin: 04/02/18 10:40 Dose: 5,000 unit Cefazolin Sodium 1 gm/ (Dextrose) 50 mls @ 100 mls/hr IVPB Q8H-IV [facility] Last Admin: 04/02/18 10:40 Dose: 100 mls/hr Insulin Aspart (Novolog Vial Sliding Scale -) 1 vial SQ ACHS [facility]; Protocol Last Admin: 04/02/18 06:24 Dose: 12 units Insulin Detemir (Levemir Vial) 45 units SQ 0700 [facility] Last Admin: 04/02/18 06:24 Dose: 45 units Nicotine (Nicoderm Patch -) 21 mg TD DAILY [facility] Last Admin: 04/02/18 10:41 Dose: 21 mg Polyethylene Glycol (Miralax (For Daily Use) -) 17 gm PO BID [facility] Last Admin: 04/02/18 10:41 Dose: 17 gm Pregabalin (Lyrica -) 100 mg PO BID [facility] Last Admin: 04/02/18 10:40 Dose: 100 mg Ramipril (Altace -) 2.5 mg PO DAILY [facility] Last Admin: 04/02/18 10:40 Dose: 2.5 mg Senna (Senna -) 2 tab PO HS PRN PRN Reason: CONSTIPATION Last Admin: 04/01/18 22:14 Dose: 2 tab Zolpidem Tartrate (Ambien -) 10 mg PO HS PRN PRN Reason: INSOMNIA Last Admin: 04/02/18 02:23 Dose: 10 mg - Objective Vital Signs: Vital Signs Temperature 97.8 F 04/02/18 06:25 Pulse Rate 72 04/02/18 10:00 Respiratory Rate 20 04/02/18 10:00 Blood Pressure 138/61 04/02/18 10:00 O2 Sat by Pulse Oximetry (%) 99 04/01/18 21:00 Constitutional: Yes: No Distress, Calm Respiratory: Yes: Regular Gastrointestinal: Yes: Normal Bowel Sounds, Soft Genitourinary: Yes: WNL Edema: LLE: 2+ Wound/Incision: Yes: Dressing Dry and Intact Labs: CBC, BMP 04/02/18 07:40 03/29/18 11:50 Problem List - Problems (1) Cellulitis and abscess of toe Code(s): L03.039 - CELLULITIS OF UNSPECIFIED TOE; L02.619 - CUTANEOUS ABSCESS OF UNSPECIFIED FOOT Qualifiers: Laterality: left Qualified Code(s): L03.032 - Cellulitis of left toe; L02.612 - Cutaneous abscess of left foot (2) Diabetes Code(s): E11.9 - TYPE 2 DIABETES MELLITUS WITHOUT COMPLICATIONS Assessment/Plan 57 y.o. male with PMH of HTN, CHF with defibrillator and IDDM s/p previous Lt foot toe amputations presenting with non-healing ulcers with drainage and Lt leg edema/pain Lt foot infected ulcers with midfoot/MT Osteomyelitis/cellulitis - MRSA/group B Strep in wound cultures -- cont. current antibiotics -- scheduled for OR on tuesday -- pain control with bowel regimen -- glycemic control -- continue wound care
[2018-04-02] MEDS ORDERED: INSULIN (NOVOLOG) ASPART 100 UNITS/ML 10ML VIAL ONE (12:11)
--- NOTE | 2018-04-02 17:38 | PN ---
Progress Note, Physician - Current Medication List Current Medications: Active Medications Acetaminophen (Tylenol -) 650 mg PO Q6H PRN PRN Reason: FEVER Last Admin: 04/02/18 02:42 Dose: 650 mg Collagenase (Santyl -) 1 applic TP DAILY [facility] Last Admin: 04/02/18 10:41 Dose: Not Given Furosemide (Lasix -) 40 mg PO DAILY [facility] Last Admin: 04/02/18 10:40 Dose: 40 mg Heparin Sodium (Porcine) (Heparin -) 5,000 unit SQ BID [facility] Last Admin: 04/02/18 10:40 Dose: 5,000 unit Cefazolin Sodium 1 gm/ (Dextrose) 50 mls @ 100 mls/hr IVPB Q8H-IV [facility] Last Admin: 04/02/18 17:30 Dose: 100 mls/hr Insulin Aspart (Novolog Vial Sliding Scale -) 1 vial SQ ACHS [facility]; Protocol Last Admin: 04/02/18 17:30 Dose: 6 units Insulin Detemir (Levemir Vial) 45 units SQ 0700 [facility] Last Admin: 04/02/18 06:24 Dose: 45 units Nicotine (Nicoderm Patch -) 21 mg TD DAILY [facility] Last Admin: 04/02/18 10:41 Dose: 21 mg Polyethylene Glycol (Miralax (For Daily Use) -) 17 gm PO BID [facility] Last Admin: 04/02/18 10:41 Dose: 17 gm Pregabalin (Lyrica -) 100 mg PO BID [facility] Last Admin: 04/02/18 10:40 Dose: 100 mg Ramipril (Altace -) 2.5 mg PO DAILY [facility] Last Admin: 04/02/18 10:40 Dose: 2.5 mg Senna (Senna -) 2 tab PO HS PRN PRN Reason: CONSTIPATION Last Admin: 04/01/18 22:14 Dose: 2 tab Zolpidem Tartrate (Ambien -) 10 mg PO HS PRN PRN Reason: INSOMNIA Last Admin: 04/02/18 02:23 Dose: 10 mg - Objective Vital Signs: Vital Signs Temperature 97.8 F 04/02/18 15:10 Pulse Rate 78 04/02/18 15:10 Respiratory Rate 22 04/02/18 15:10 Blood Pressure 143/70 04/02/18 15:10 O2 Sat by Pulse Oximetry (%) 99 04/01/18 21:00 Constitutional: Yes: No Distress HENT: Yes: Atraumatic Neck: Yes: Supple Cardiovascular: Yes: Regular Rate and Rhythm Respiratory: Yes: CTA Bilaterally Gastrointestinal: Yes: Normal Bowel Sounds Extremities: Yes: Other (L big toe) Edema: LLE: Trace Peripheral Pulses WNL: Yes Neurological: Yes: Alert, Oriented Labs: CBC, BMP 04/02/18 07:40 03/29/18 11:50 Problem List - Problems (1) Cellulitis and abscess of toe Assessment/Plan: on iv abx xray done d/w podiatry for OR next week tuesday Code(s): L03.039 - CELLULITIS OF UNSPECIFIED TOE; L02.619 - CUTANEOUS ABSCESS OF UNSPECIFIED FOOT Qualifiers: Laterality: left Qualified Code(s): L03.032 - Cellulitis of left toe; L02.612 - Cutaneous abscess of left foot (2) Diabetes Assessment/Plan: on insulin Code(s): E11.9 - TYPE 2 DIABETES MELLITUS WITHOUT COMPLICATIONS
[2018-04-02] MEDS: SENNOSIDES 8.6MG TABLET (FP) PO PRN (22:25)
[2018-04-03] MEDS ORDERED: DEXTROSE 5%-WATER - 50 ML IVPB ONE ×3 (01:47→17:16)
[2018-04-03] MEDS ORDERED: ceFAZolin SODIUM 1 GM VIAL ONE ×3 (01:47→17:16)
[2018-04-03] MEDS: CEFAZOLIN 1 GM in DEXTROSE 5%-WATER - 50 ML IVPB SCH ×3 (01:56→17:30)
[2018-04-03] MEDS: INSULIN (LEVEMIR) 100 UNITS/ML UNITS SQ SCH (06:24)
[2018-04-03] MEDS: INSULIN SLIDING SCALE (NOVOLOG) 1 VIAL SQ SCH ×4 (06:24→21:59)
--- NOTE | 2018-04-03 08:36 | PN ---
Progress Note (short form) - Note Progress Note: Patient seen in bed having breakfast. Has many questions. vsgi, , wbc=7.5, +infected left foot, MRI reviewed, om previous amputation infected bone and soft tissue left foot. Patient is scheduled for OR on Tuesday at 10am. Betadine dressing to left foot. Patient consented to surgery to debridement of left foot. Discussed all possible risks benefits and alternatives. Patient fully understood all risks benefits and alternatives. Concerned about pain and possible vac. Concerned about defibrillator. States he does not want oxycontin post op. Re- assured that he would not need it. Will consult HBO for right foot OM. Will follow. Nurse present for consent. Advised if he had any other questions I would address them in morning. Medical clearance needed.
[2018-04-03] MEDS: RAMIPRIL 2.5 MG CAPSULE (FP) PO SCH (09:22)
[2018-04-03] MEDS: PREGABALIN 100 MG CAPSULE PO SCH ×2 (09:22→22:00)
[2018-04-03] MEDS: HEPARIN NA (PORCINE) 5,000 UNITS/ML 1ML VIAL SQ SCH ×2 (09:22→22:07)
[2018-04-03] MEDS: NICOTINE 21 MG/24 HOURS TOPICAL PATCH TD SCH (09:22)
[2018-04-03] MEDS: FUROSEMIDE 40 MG TABLET (FP) PO SCH (09:22)
[2018-04-03] MEDS: oxyCODONE HCL 5 MG TABLET PO PRN ×3 (09:35→22:19)
[2018-04-03] MEDS: ACETAMINOPHEN 325 MG TABLET (FP) PO PRN ×3 (09:35→22:20)
[2018-04-03] MEDS: POLYETHYLENE GLYCOL 3350 119 GM BTL PO SCH ×2 (09:36→22:06)
[2018-04-03] MEDS: COLLAGENASE CLOSTRIDIUM HIST. 30 GRAMS TUBE TP SCH (11:28)
--- NOTE | 2018-04-03 12:11 | PN ---
Progress Note, Physician History of Present Illness: stable no new issues wound dressed patient for surgery tomorrow osteo more than the toe - Current Medication List Current Medications: Active Medications Acetaminophen (Tylenol -) 650 mg PO Q6H PRN PRN Reason: FEVER Last Admin: 04/03/18 09:35 Dose: 650 mg Collagenase (Santyl -) 1 applic TP DAILY [facility] Last Admin: 04/03/18 11:28 Dose: Not Given Furosemide (Lasix -) 40 mg PO DAILY [facility] Last Admin: 04/03/18 09:22 Dose: 40 mg Heparin Sodium (Porcine) (Heparin -) 5,000 unit SQ BID [facility] Last Admin: 04/03/18 09:22 Dose: 5,000 unit Cefazolin Sodium 1 gm/ (Dextrose) 50 mls @ 100 mls/hr IVPB Q8H-IV [facility] Last Admin: 04/03/18 09:22 Dose: 100 mls/hr Insulin Aspart (Novolog Vial Sliding Scale -) 1 vial SQ ACHS [facility]; Protocol Last Admin: 04/03/18 11:42 Dose: 14 units Insulin Detemir (Levemir Vial) 45 units SQ 0700 [facility] Last Admin: 04/03/18 06:24 Dose: 45 units Nicotine (Nicoderm Patch -) 21 mg TD DAILY [facility] Last Admin: 04/03/18 09:22 Dose: 21 mg Oxycodone HCl (Roxicodone -) 10 mg PO Q6H PRN PRN Reason: PAIN LEVEL 4 - 6 Last Admin: 04/03/18 09:35 Dose: 10 mg Polyethylene Glycol (Miralax (For Daily Use) -) 17 gm PO BID [facility] Last Admin: 04/03/18 09:36 Dose: 17 gm Pregabalin (Lyrica -) 100 mg PO BID [facility] Last Admin: 04/03/18 09:22 Dose: 100 mg Ramipril (Altace -) 2.5 mg PO DAILY [facility] Last Admin: 04/03/18 09:22 Dose: 2.5 mg Senna (Senna -) 2 tab PO HS PRN PRN Reason: CONSTIPATION Last Admin: 04/02/18 22:25 Dose: 2 tab Zolpidem Tartrate (Ambien -) 10 mg PO HS PRN PRN Reason: INSOMNIA Last Admin: 04/02/18 22:25 Dose: 10 mg - Objective Vital Signs: Vital Signs Temperature 98.3 F 04/03/18 06:00 Pulse Rate 86 04/03/18 06:00 Respiratory Rate 20 04/03/18 06:00 Blood Pressure 127/86 04/03/18 06:00 O2 Sat by Pulse Oximetry (%) 99 04/02/18 21:00 Constitutional: Yes: No Distress, Calm, Obese Cardiovascular: Yes: Regular Rate and Rhythm Respiratory: Yes: Regular, CTA Bilaterally Gastrointestinal: Yes: Normal Bowel Sounds, Soft Musculoskeletal: Yes: WNL Extremities: Yes: Other Wound/Incision: Yes: Dressing Dry and Intact Neurological: Yes: Alert, Oriented Psychiatric: Yes: Alert, Oriented Labs: CBC, BMP 04/02/18 07:40 03/29/18 11:50 Assessment/Plan Problem List - Problems (1) Cellulitis and abscess of toe Code(s): L03.039 - CELLULITIS OF UNSPECIFIED TOE; L02.619 - CUTANEOUS ABSCESS OF UNSPECIFIED FOOT Qualifiers: Laterality: left Qualified Code(s): L03.032 - Cellulitis of left toe; L02.612 - Cutaneous abscess of left foot 2 osteo of the toe wound infection multiple medical problems plan continue current abx patient for or tomorrow once surgery is done we will determine the abx and duration cx to be send from the operating room \
[2018-04-03 16:14] VITALS: BMI 39.3
[2018-04-03] MEDS ORDERED: INSULIN (NOVOLOG) ASPART 100 UNITS/ML 10ML VIAL ONE (21:32)
--- NOTE | 2018-04-03 21:55 | PN ---
Progress Note, Physician History of Present Illness: doing well - Current Medication List Current Medications: Active Medications Acetaminophen (Tylenol -) 650 mg PO Q6H PRN PRN Reason: FEVER Last Admin: 04/03/18 16:15 Dose: 650 mg Collagenase (Santyl -) 1 applic TP DAILY [facility] Last Admin: 04/03/18 11:28 Dose: Not Given Furosemide (Lasix -) 40 mg PO DAILY [facility] Last Admin: 04/03/18 09:22 Dose: 40 mg Heparin Sodium (Porcine) (Heparin -) 5,000 unit SQ BID [facility] Last Admin: 04/03/18 09:22 Dose: 5,000 unit Cefazolin Sodium 1 gm/ (Dextrose) 50 mls @ 100 mls/hr IVPB Q8H-IV [facility] Last Admin: 04/03/18 17:30 Dose: 100 mls/hr Insulin Aspart (Novolog Vial Sliding Scale -) 1 vial SQ ACHS [facility]; Protocol Last Admin: 04/03/18 16:37 Dose: 12 units Insulin Detemir (Levemir Vial) 45 units SQ 0700 [facility] Last Admin: 04/03/18 06:24 Dose: 45 units Nicotine (Nicoderm Patch -) 21 mg TD DAILY [facility] Last Admin: 04/03/18 09:22 Dose: 21 mg Oxycodone HCl (Roxicodone -) 10 mg PO Q6H PRN PRN Reason: PAIN LEVEL 4 - 6 Last Admin: 04/03/18 16:14 Dose: 10 mg Polyethylene Glycol (Miralax (For Daily Use) -) 17 gm PO BID [facility] Last Admin: 04/03/18 09:36 Dose: 17 gm Pregabalin (Lyrica -) 100 mg PO BID [facility] Last Admin: 04/03/18 09:22 Dose: 100 mg Ramipril (Altace -) 2.5 mg PO DAILY [facility] Last Admin: 04/03/18 09:22 Dose: 2.5 mg Senna (Senna -) 2 tab PO HS PRN PRN Reason: CONSTIPATION Last Admin: 04/02/18 22:25 Dose: 2 tab Zolpidem Tartrate (Ambien -) 10 mg PO HS PRN PRN Reason: INSOMNIA Last Admin: 04/02/18 22:25 Dose: 10 mg - Objective Vital Signs: Vital Signs Temperature 98.1 F 06/25/18 18:00 Pulse Rate 69 04/03/18 18:00 Respiratory Rate 20 04/03/18 18:00 Blood Pressure 139/79 04/03/18 18:00 O2 Sat by Pulse Oximetry (%) 98 04/03/18 09:00 Constitutional: Yes: No Distress HENT: Yes: Atraumatic Neck: Yes: Supple Cardiovascular: Yes: Regular Rate and Rhythm Respiratory: Yes: CTA Bilaterally Gastrointestinal: Yes: Normal Bowel Sounds Extremities: Yes: WNL Neurological: Yes: Alert, Oriented Labs: CBC, BMP 04/02/18 07:40 04/03/18 12:30 Problem List - Problems (1) Cellulitis and abscess of toe Assessment/Plan: on iv abx xray done d/w podiatry for OR in am will order cxr cbc, cmp, pt/inr will get cardiology on board Code(s): L03.039 - CELLULITIS OF UNSPECIFIED TOE; L02.619 - CUTANEOUS ABSCESS OF UNSPECIFIED FOOT Qualifiers: Laterality: left Qualified Code(s): L03.032 - Cellulitis of left toe; L02.612 - Cutaneous abscess of left foot (2) Diabetes Assessment/Plan: on insulin, bgms Code(s): E11.9 - TYPE 2 DIABETES MELLITUS WITHOUT COMPLICATIONS
[2018-04-03] MEDS: SENNOSIDES 8.6MG TABLET (FP) PO PRN (22:00)
[2018-04-03] MEDS: ZOLPIDEM TARTRATE 5 MG TABLET PO PRN (22:00)
[2018-04-04] MEDS ORDERED: DEXTROSE 5%-WATER - 50 ML IVPB ONE ×3 (02:22→17:14)
[2018-04-04] MEDS ORDERED: ceFAZolin SODIUM 1 GM VIAL ONE ×3 (02:22→17:14)
[2018-04-04] MEDS: CEFAZOLIN 1 GM in DEXTROSE 5%-WATER - 50 ML IVPB SCH ×3 (02:28→17:35)
[2018-04-04] MEDS: INSULIN (LEVEMIR) 100 UNITS/ML UNITS SQ SCH (06:36)
[2018-04-04] MEDS: INSULIN SLIDING SCALE (NOVOLOG) 1 VIAL SQ SCH ×3 (06:36→21:22)
[2018-04-04 07:31] LABS: BASO % 0.7 % (0-2.0); EOS % 7.4 % (0-4.5); HEMATOCRIT 36.4 % (35.4-49); HEMOGLOBIN 12.1 GM/dL (11.7-16.9); LYMPH % 23.3 % (8-40); MCH 28.5 pg (25.7-33.7); MCHC 33.1 g/dl (32.0-35.9); MEAN CELL VOLUME 86.1 fl (80-96); MEAN PLT VOLUME 9.1 fl (7.5-11.1); MONO % 5.5 % (3.8-10.2); NEUT % 63.1 % (42.8-82.8); PLATELET COUNT 202 K/MM3 (134-434); RBC 4.23 M/mm3 (4.00-5.60)
[2018-04-04 07:47] LABS: PROTHROMBIN TIME (PATIENT) 11.3 SEC (9.7-13.0)
[2018-04-04 07:57] LABS: ALBUMIN 2.7 g/dl (3.4-5.0); ANION GAP 4 (8-16); BLOOD UREA NITROGEN 19 mg/dL (7-18); CALCIUM 8.2 mg/dL (8.5-10.1); CHLORIDE 100 mmol/L (98-107); CO2 31 mmol/L (21-32); POTASSIUM 4.5 mmol/L (3.5-5.1); SODIUM 135 mmol/L (136-145)
[2018-04-04 08:02] LABS: ALK PHOS 112 U/L (45-117); BILIRUBIN,TOTAL 0.3 mg/dL (0.2-1.0); CREATININE 1.1 mg/dL (0.7-1.3); SGOT/AST 13 U/L (15-37); SGPT/ALT 20 U/L (12-78); TOT PROT 7.7 g/dl (6.4-8.2)
[2018-04-04 08:18] LABS: GLUCOSE,RANDOM 356 mg/dL (74-106)
[2018-04-04] MEDS ORDERED: ONDANSETRON 4 MG/2 ML VIAL IVPUSH PRN ×2 (10:25→12:38)
[2018-04-04] MEDS ORDERED: LACTATED RINGERS SOLUTION 1,000 ML IV SCH (10:30)
[2018-04-04] MEDS ORDERED: BUPIVACAINE HCL/PF 0.5% (5MG/ML) 10 ML VIAL ONE (10:32)
[2018-04-04] MEDS ORDERED: MIDAZOLAM HCL 2 MG/2 ML SINGLE DOSE VIAL ONE (10:46)
[2018-04-04] MEDS ORDERED: LIDOCAINE HCL 1%, 10 MG/ML (20ML VIAL) ONE (10:49)
[2018-04-04] MEDS ORDERED: PROPOFOL 20 ML ONE (10:57)
[2018-04-04] MEDS ORDERED: LIDOCAINE HCL 1%, 10 MG/ML (20ML VIAL) PNB ONE (11:18)
[2018-04-04] MEDS ORDERED: BUPIVACAINE HCL/PF 0.5% (5MG/ML) 10 ML VIAL IJ ONE (11:18)
[2018-04-04] MEDS: COLLAGENASE CLOSTRIDIUM HIST. 30 GRAMS TUBE TP SCH (11:25)
[2018-04-04] MEDS: RAMIPRIL 2.5 MG CAPSULE (FP) PO SCH (11:25)
[2018-04-04] MEDS: NICOTINE 21 MG/24 HOURS TOPICAL PATCH TD SCH (11:25)
[2018-04-04] MEDS: FUROSEMIDE 40 MG TABLET (FP) PO SCH (11:25)
[2018-04-04] MEDS: PREGABALIN 100 MG CAPSULE PO SCH ×2 (11:25→21:13)
[2018-04-04] MEDS: POLYETHYLENE GLYCOL 3350 119 GM BTL PO SCH ×2 (11:25→21:22)
[2018-04-04] MEDS ORDERED: BACITRACIN 50,000 UNITS VIAL TP ONE (11:53)
--- NOTE | 2018-04-04 12:08 | CON.CARD ---
Consult Consult Specialty:: Cardiology Reason for Consultation:: Preop clearance - History of Present Illness History of Present Illness: 57 M with DM and cardiomyopathy (likely non-ischemic. Cardiac cath 10 years ago at [facility] was reportedly without CAD. He is post AICD placement. Reports EF 35%). Rare admissions in the past for heart failure decompensation. Admitted with lower extremity ulcer and is being evaluated prior to debridement with possible amputation. He has no chest pain, dyspnea, orthopnea or edema. Has been compliant with medications. Beta blockers were stopped by patient due to making him feel weak. - History Source History Provided By: Patient Limitations to Obtaining History: No Limitations - Past Medical History Cardio/Vascular: Yes: CHF, HTN - Alcohol/Substance Use Hx Alcohol Use: No - Smoking History Smoking history: Current every day smoker Have you smoked in the past 12 months: Yes Aproximately how many cigarettes per day: 20 Home Medications - Allergies Allergies/Adverse Reactions: Allergies Allergy/AdvReac Type Severity Reaction Status Date / Time No Known Allergies Allergy Verified 03/29/18 10:09 - Home Medications Home Medications: Ambulatory Orders Furosemide [Lasix] 40 mg PO DAILY 03/29/18 Insulin Aspart [Novolog] 100 unit SQ ASDIR 03/29/18 Insulin Glargine,Hum.rec.anlog [Lantus] 45 unit SQ DAILY 03/29/18 Pregabalin [Lyrica] 100 mg PO BID 03/29/18 Ramipril [Altace] 2.5 mg PO DAILY 03/29/18 Review of Systems - Review of Systems Constitutional: reports: No Symptoms Eyes: reports: No Symptoms HENT: denies: Difficult Swallowing, Ear Discharge Neck: reports: No Symptoms Cardiovascular: denies: Chest Pain, Edema, Palpitations, Shortness of Breath Respiratory: reports: No Symptoms, Exercise Intolerance. denies: Cough Gastrointestinal: reports: No Symptoms Vital Signs: Vital Signs Temperature 98.0 F 04/04/18 09:05 Pulse Rate 75 04/04/18 09:05 Respiratory Rate 19 04/04/18 09:05 Blood Pressure 132/74 04/04/18 09:05 O2 Sat by Pulse Oximetry (%) 99 04/03/18 21:00 Constitutional: Yes: Well Nourished, No Distress, Calm Eyes: Yes: Conjunctiva Clear, EOM Intact HENT: Yes: Atraumatic, Normocephalic Neck: Yes: Supple, Trachea Midline Respiratory: Yes: Regular, CTA Bilaterally Gastrointestinal: Yes: Normal Bowel Sounds, Soft Cardiovascular: Yes: Regular Rate and Rhythm. No: Gallop, Rub JVD: No Carotid Bruit: No PMI: Non-Displaced Heart Sounds: Yes: S1, S2 Murmur: No: Systolic Murmur, Diastolic Murmur Edema: No Neurological: Yes: Alert, Oriented - Other Data Labs, Other Data: CBC, BMP 04/04/18 07:12 04/04/18 07:12 INR, PTT INR 1.00 (0.82-1.09) 04/04/18 07:12 Echo: Report Reviewed, Image Reviewed Ejection Fraction %: LVEF < 40 % Imaging - Results Chest X-ray: Report Reviewed Problem List - Problems (1) Cardiomyopathy Code(s): I42.9 - CARDIOMYOPATHY, UNSPECIFIED (2) Preop cardiovascular exam Code(s): Z01.810 - ENCOUNTER FOR PREPROCEDURAL CARDIOVASCULAR EXAMINATION Assessment/Plan 57 M with DM and reported history of non-ischemic cardiomyopathy with moderately reduced EF and steble heart failure. He is not on beta celia therapy due to adverse patient precieved side effects. Being evaluated prior to surgery. His heart failure is stable and compensated. No further testing is advised. Patient is at moderate risk for operation. Continue daily diuretics and avoid unnecessary volume loads.
--- NOTE | 2018-04-04 12:23 | OP ---
Operative Note - Note: Operative Date: 04/04/18 Pre-Operative Diagnosis: om left foot Operation: debridement bone soft tissue partial ray resection 1st left Findings: necrotic bone and soft tissue Implants: 1/4 inch plain packing Post-Operative Diagnosis: Same as Pre-op Surgeon: Cam Patrick Anesthesia: Local, MAC Estimated Blood Loss (mls): 75 Drains & Tubes with Location: 1/4 plain packing Operative Report Dictated: Yes
[2018-04-04] MEDS ORDERED: SENNOSIDES 8.6MG TABLET (FP) PO PRN (12:38)
[2018-04-04] MEDS: ACETAMINOPHEN 325 MG TABLET (FP) PO PRN (12:40)
[2018-04-04 12:58] LABS: BASO % 0.8 % (0-2.0); EOS % 6.3 % (0-4.5); HEMATOCRIT 35.2 % (35.4-49); HEMOGLOBIN 11.5 GM/dL (11.7-16.9); LYMPH % 24.7 % (8-40); MCH 28.1 pg (25.7-33.7); MCHC 32.7 g/dl (32.0-35.9); MEAN CELL VOLUME 85.8 fl (80-96); MEAN PLT VOLUME 9.1 fl (7.5-11.1); MONO % 4.8 % (3.8-10.2); NEUT % 63.4 % (42.8-82.8); PLATELET COUNT 205 K/MM3 (134-434); RBC 4.11 M/mm3 (4.00-5.60); RDW 15.8 % (11.9-15.9); WHITE BLOOD COUNT 7.8 K/mm3 (4.0-10.0)
[2018-04-04] MEDS: LACTATED RINGERS SOLUTION 1,000 ML IV SCH ×2 (13:00→14:58)
--- NOTE | 2018-04-04 13:24 | EKG ---
Test Reason : Blood Pressure : / mmHG Vent. Rate : 075 BPM Atrial Rate : 075 BPM P-R Int : 182 ms QRS Dur : 096 ms QT Int : 424 ms P-R-T Axes : 031 -54 043 degrees QTc Int : 473 ms NORMAL SINUS RHYTHM LEFT AXIS DEVIATION ABNORMAL ECG NO PREVIOUS ECGS AVAILABLE Confirmed by Jaleel Mercedes ([id number]) on 04/04/2018 1:24:05 PM Referred By: Leilani GONZALEZ Confirmed By:Jaleel Mercedes
--- NOTE | 2018-04-04 14:24 | OP ---
DATE OF OPERATION: 03/29/2018 PREOPERATIVE DIAGNOSIS: Left foot osteomyelitis of the 1st ray with infected ulceration. POSTOPERATIVE DIAGNOSIS: Left foot osteomyelitis of the 1st ray with infected ulceration. ATTENDING SURGEON: Cam Patrick DPM DATA PROCESSING CONTROL CLERK: SURAJ Alaniz PROCEDURE: 1. Left foot partial 1st ray amputation. 2. Debridement of bone and soft tissue, left foot. ANESTHESIA: Local with MAC. ESTIMATED BLOOD LOSS: 75 mL. HEMOSTASIS: Intraoperative electrocautery. MATERIALS: 3-0 nylon, 2-0 nylon, Xeroform, dry sterile dressing, Kerlix, DARIELA wrap. INJECTABLES: Preoperative is 20 mL of lidocaine 1% plain and 0.5% Marcaine plain, 1-to-1 mixture. Postoperative injectable was 10 mL of Marcaine 0.5% plain. DESCRIPTION OF PROCEDURE: The patient was brought to the operating room and placed supine on the operating room table. After adequate IV sedation was administered, a local infiltrative block was performed utilizing a 1-to-1 mixture of 1% lidocaine plain and 0.5% Marcaine plain in Manuel block fashion around the left 1st metatarsal. A total of 20 mL was used. The left foot was prepped and draped in the usual aseptic fashion. Attention was then directed to the left foot, 1st ray, where a sharp incision was made circumferentially around the head of the 1st metatarsal. A deep ulceration that probed to bone, was noted on the distal aspect of the 1st ray, and care was taken to circumferentially incise around the ulceration of the 1st metatarsal head. The skin wedge, which was created from the circumferential incision was deepened down to the level of bone. The incision was deepened through using a No. 15 blade for sharp dissection. Care was taken to identify and retract all vital and neurovascular structures. All soft tissue attachments to the 1st metatarsal and also the sesamoids were freed with a No. 15 blade and Metzenbaum scissors. Both the tibial and the fibular sesamoids were dissected and removed in toto. Next, attention was directed to the mid shaft of the 1st metatarsal on the left foot. After soft tissue attachments to the 1st metatarsal mid-shaft and head were freed with a No. 15 blade and Metzenbaum scissors, a bone saw was utilized, and the shaft and head of the 1st metatarsal were resected down to the level of the proximal 1st metatarsal shaft. No bony prominences were noted. Next, the surgical site was then copiously irrigated using pulse lavage with bacitracin. Intraoperative bleeding was noted, with an estimated blood loss of approximately 75 mL. The 1st metatarsal that was remaining in the left foot was noted to be intact and with good bone stalk. Skin over the 1st ray partial amputation site was closed using a 3-0 nylon and 4-0 nylon in simple suture fashion. The distal end of the surgical site was left open and was packed with plain packing at this time. The surgical site was then dressed with Xeroform, dry sterile dressing, Eneida, and DARIELA wrap applied in a light compressive fashion. At this time, the hyperemia was noted to all the remaining digits of the left foot. The patient tolerated the above anesthesia and surgical procedure well and left the operating room to the recovery room with vital signs stable and vascular status intact to all remaining digits of the left foot. Patient will be transferred to the hospital floor, once considered stable by anesthesia team. BRITNEY Salazar/[id number]
--- NOTE | 2018-04-04 15:16 | PN ---
Progress Note, Physician History of Present Illness: patient got ray amputation done today cx send from the operating room - Current Medication List Current Medications: Active Medications Acetaminophen (Tylenol -) 650 mg PO Q6H PRN PRN Reason: FEVER Last Admin: 04/04/18 12:40 Dose: 650 mg Acetaminophen/Codeine Phosphate (Tylenol # 3 -) 1 tab PO Q4H PRN PRN Reason: PAIN LEVEL 1-5 Stop: 04/05/18 12:25 Furosemide (Lasix -) 40 mg PO DAILY [facility] Cefazolin Sodium 1 gm/ (Dextrose) 50 mls @ 100 mls/hr IVPB Q8H-IV [facility] Lactated Ringer's (Lactated Ringers Solution) 1,000 mls @ 75 mls/hr IV ASDIR [facility] Last Admin: 04/04/18 13:00 Dose: 0 mls Insulin Detemir (Levemir Vial) 45 units SQ 0700 [facility] Nicotine (Nicoderm Patch -) 21 mg TD DAILY [facility] Ondansetron HCl (Zofran Injection) 4 mg IVPUSH Q6H PRN PRN Reason: NAUSEA AND/OR VOMITING Polyethylene Glycol (Miralax (For Daily Use) -) 17 gm PO BID [facility] Pregabalin (Lyrica -) 100 mg PO BID [facility] Ramipril (Altace -) 2.5 mg PO DAILY [facility] Senna (Senna -) 2 tab PO HS PRN PRN Reason: CONSTIPATION Zolpidem Tartrate (Ambien -) 10 mg PO HS PRN PRN Reason: INSOMNIA - Objective Vital Signs: Vital Signs Temperature 98.5 F 04/04/18 15:04 Pulse Rate 75 04/04/18 15:04 Respiratory Rate 20 04/04/18 15:04 Blood Pressure 135/85 04/04/18 15:04 O2 Sat by Pulse Oximetry (%) 100 04/04/18 12:45 Constitutional: Yes: No Distress, Calm Cardiovascular: Yes: Regular Rate and Rhythm Respiratory: Yes: Regular, CTA Bilaterally Gastrointestinal: Yes: Normal Bowel Sounds, Soft Musculoskeletal: Yes: WNL Extremities: Yes: Other Wound/Incision: Yes: Dressing Dry and Intact Neurological: Yes: Alert, Oriented Psychiatric: Yes: Alert, Oriented Labs: CBC, BMP 04/04/18 12:47 04/04/18 07:12 INR, PTT INR 1.00 (0.82-1.09) 04/04/18 07:12 Assessment/Plan Problem List - Problems (1) Cellulitis and abscess of toe Code(s): L03.039 - CELLULITIS OF UNSPECIFIED TOE; L02.619 - CUTANEOUS ABSCESS OF UNSPECIFIED FOOT Qualifiers: Laterality: left Qualified Code(s): L03.032 - Cellulitis of left toe; L02.612 - Cutaneous abscess of left foot 2 osteo of the toe wound infection multiple medical problems plan continue abx await for cx report once we have reports we will decide what abx patient is very argumentative and ahs been arguing all the time he has been doing this for last couple of days using foul language i have explained him detail every day and the dialysis social worker was with me whwn i explained him in detail it will depend on what the patient wants to do
[2018-04-04] MEDS ORDERED: oxyCODONE HCL 5 MG TABLET PO PRN (15:53)
[2018-04-04] MEDS: ACETAMINOPHEN WITH CODEINE 300MG/30MG TABLET PO PRN ×2 (16:45→21:13)
--- NOTE | 2018-04-04 18:22 | PN ---
Progress Note, Physician History of Present Illness: s/p surgery - Current Medication List Current Medications: Active Medications Acetaminophen (Tylenol -) 650 mg PO Q6H PRN PRN Reason: FEVER Last Admin: 04/04/18 12:40 Dose: 650 mg Acetaminophen/Codeine Phosphate (Tylenol # 3 -) 1 tab PO Q4H PRN PRN Reason: PAIN LEVEL 1-5 Stop: 04/05/18 12:25 Furosemide (Lasix -) 40 mg PO DAILY [facility] Cefazolin Sodium 1 gm/ (Dextrose) 50 mls @ 100 mls/hr IVPB Q8H-IV [facility] Lactated Ringer's (Lactated Ringers Solution) 1,000 mls @ 75 mls/hr IV ASDIR [facility] Last Admin: 04/04/18 13:00 Dose: 0 mls Insulin Aspart (Novolog Vial Sliding Scale -) 1 vial SQ ACHS [facility]; Protocol Insulin Detemir (Levemir Vial) 45 units SQ 0700 [facility] Nicotine (Nicoderm Patch -) 21 mg TD DAILY [facility] Ondansetron HCl (Zofran Injection) 4 mg IVPUSH Q6H PRN PRN Reason: NAUSEA AND/OR VOMITING Oxycodone HCl (Roxicodone -) 10 mg PO Q6H PRN PRN Reason: PAIN SCALE 5-10 Polyethylene Glycol (Miralax (For Daily Use) -) 17 gm PO BID [facility] Pregabalin (Lyrica -) 100 mg PO BID [facility] Ramipril (Altace -) 2.5 mg PO DAILY [facility] Senna (Senna -) 2 tab PO HS PRN PRN Reason: CONSTIPATION Zolpidem Tartrate (Ambien -) 10 mg PO HS PRN PRN Reason: INSOMNIA - Objective Vital Signs: Vital Signs Temperature 98.5 F 04/04/18 15:04 Pulse Rate 75 04/04/18 15:04 Respiratory Rate 20 04/04/18 15:04 Blood Pressure 135/85 04/04/18 15:04 O2 Sat by Pulse Oximetry (%) 100 04/04/18 12:45 Constitutional: Yes: No Distress HENT: Yes: Atraumatic Neck: Yes: Supple Cardiovascular: Yes: Regular Rate and Rhythm Respiratory: Yes: CTA Bilaterally Gastrointestinal: Yes: Normal Bowel Sounds Extremities: Yes: Other (left foot in dressing) Neurological: Yes: Alert, Oriented Labs: CBC, BMP 04/04/18 12:47 04/04/18 07:12 INR, PTT INR 1.00 (0.82-1.09) 04/04/18 07:12 Problem List - Problems (1) Cellulitis and abscess of toe Assessment/Plan: on iv abx s/p surgery prn pain meds Code(s): L03.039 - CELLULITIS OF UNSPECIFIED TOE; L02.619 - CUTANEOUS ABSCESS OF UNSPECIFIED FOOT Qualifiers: Laterality: left Qualified Code(s): L03.032 - Cellulitis of left toe; L02.612 - Cutaneous abscess of left foot (2) Diabetes Assessment/Plan: on insulin, bgms Code(s): E11.9 - TYPE 2 DIABETES MELLITUS WITHOUT COMPLICATIONS
[2018-04-04] MEDS ORDERED: INSULIN (NOVOLOG) ASPART 100 UNITS/ML 10ML VIAL SQ ONE (18:45)
[2018-04-04] MEDS: ZOLPIDEM TARTRATE 5 MG TABLET PO PRN (21:14)
[2018-04-04] MEDS: MORPHINE SULFATE 2 MG/ML VIAL IVPUSH PRN (22:54)
[2018-04-05] MEDS ORDERED: DEXTROSE 5%-WATER - 50 ML IVPB ONE ×3 (02:13→17:27)
[2018-04-05] MEDS ORDERED: ceFAZolin SODIUM 1 GM VIAL ONE ×3 (02:13→17:27)
[2018-04-05] MEDS: CEFAZOLIN 1 GM in DEXTROSE 5%-WATER - 50 ML IVPB SCH ×3 (02:42→17:35)
[2018-04-05] MEDS: MORPHINE SULFATE 2 MG/ML VIAL IVPUSH PRN ×3 (06:19→22:17)
[2018-04-05] MEDS: INSULIN SLIDING SCALE (NOVOLOG) 1 VIAL SQ SCH ×4 (06:22→22:18)
[2018-04-05] MEDS: INSULIN (LEVEMIR) 100 UNITS/ML UNITS SQ SCH (06:23)
--- NOTE | 2018-04-05 09:17 | PN ---
Progress Note (short form) - Note Progress Note: Patient seen in bed. POD#1Bottom of dressing showing some breakthrough bleeding. Apparently patient has been walking on it. Was told before and after surgery to stay off foot. No pain. vsgi, +blood on bottom of dressing dry, -ascending cellulitis, -tender om previous amputation infected bone and soft tissue left foot. pod#1 non complaint patient Patient advised of complete bedrest today again. Dressing change tomorrow. Will follow. Continue IVABX until cultures are back.
[2018-04-05] MEDS: FUROSEMIDE 40 MG TABLET (FP) PO SCH (10:05)
[2018-04-05] MEDS: POLYETHYLENE GLYCOL 3350 119 GM BTL PO SCH ×2 (10:05→22:17)
[2018-04-05] MEDS: PREGABALIN 100 MG CAPSULE PO SCH ×2 (10:05→22:16)
[2018-04-05] MEDS: RAMIPRIL 2.5 MG CAPSULE (FP) PO SCH (10:05)
[2018-04-05] MEDS: NICOTINE 21 MG/24 HOURS TOPICAL PATCH TD SCH (10:05)
[2018-04-05 10:17] LABS: BASO % 0.4 % (0-2.0); EOS % 6.1 % (0-4.5); HEMATOCRIT 32.5 % (35.4-49); HEMOGLOBIN 10.6 GM/dL (11.7-16.9); LYMPH % 27.4 % (8-40); MCH 28.2 pg (25.7-33.7); MCHC 32.7 g/dl (32.0-35.9); MEAN CELL VOLUME 86.1 fl (80-96); MEAN PLT VOLUME 9.3 fl (7.5-11.1); MONO % 5.7 % (3.8-10.2); NEUT % 60.4 % (42.8-82.8); PLATELET COUNT 175 K/MM3 (134-434); RBC 3.77 M/mm3 (4.00-5.60); RDW 15.6 % (11.9-15.9); WHITE BLOOD COUNT 8.8 K/mm3 (4.0-10.0)
--- NOTE | 2018-04-05 11:26 | PN ---
Progress Note (short form) - Note Progress Note: Post op day#1.S/P Left big toe debridment under GA uneventful.Patient stable.No any anesthesia related problem.Patient DC from the anesthesia care.
[2018-04-05] MEDS: LACTATED RINGERS SOLUTION 1,000 ML IV SCH (14:25)
--- NOTE | 2018-04-05 14:51 | PN ---
Progress Note, Physician Chief Complaint: no cp or sob had surgery yesterday. History of Present Illness: 57 M with DM and cardiomyopathy (likely non-ischemic. Cardiac cath 10 years ago at [facility] was reportedly without CAD. He is post AICD placement. Reports EF 35%). Rare admissions in the past for heart failure decompensation. Admitted with lower extremity ulcer and is being evaluated postop from debridement with amputation. He has no chest pain, dyspnea, orthopnea or edema. Has been compliant with medications. - Current Medication List Current Medications: Active Medications Acetaminophen (Tylenol -) 650 mg PO Q6H PRN PRN Reason: FEVER Last Admin: 04/04/18 12:40 Dose: 650 mg Furosemide (Lasix -) 40 mg PO DAILY [facility] Last Admin: 04/05/18 10:05 Dose: 40 mg Cefazolin Sodium 1 gm/ (Dextrose) 50 mls @ 100 mls/hr IVPB Q8H-IV [facility] Last Admin: 04/05/18 10:05 Dose: 100 mls/hr Lactated Ringer's (Lactated Ringers Solution) 1,000 mls @ 75 mls/hr IV ASDIR [facility] Last Admin: 04/05/18 14:25 Dose: Not Given Insulin Aspart (Novolog Vial Sliding Scale -) 1 vial SQ ACHS [facility]; Protocol Last Admin: 04/05/18 11:30 Dose: Not Given Insulin Detemir (Levemir Vial) 45 units SQ 0700 [facility] Last Admin: 04/05/18 06:23 Dose: 45 units Morphine Sulfate (Morphine Sulfate) 2 mg IVPUSH Q6H PRN PRN Reason: PAIN LEVEL 4 - 6 Last Admin: 04/05/18 14:29 Dose: 2 mg Nicotine (Nicoderm Patch -) 21 mg TD DAILY [facility] Last Admin: 04/05/18 10:05 Dose: 21 mg Ondansetron HCl (Zofran Injection) 4 mg IVPUSH Q6H PRN PRN Reason: NAUSEA AND/OR VOMITING Polyethylene Glycol (Miralax (For Daily Use) -) 17 gm PO BID [facility] Last Admin: 04/05/18 10:05 Dose: 17 gm Pregabalin (Lyrica -) 100 mg PO BID [facility] Last Admin: 04/05/18 10:05 Dose: 100 mg Ramipril (Altace -) 2.5 mg PO DAILY [facility] Last Admin: 04/05/18 10:05 Dose: 2.5 mg Senna (Senna -) 2 tab PO HS PRN PRN Reason: CONSTIPATION Last Admin: 04/04/18 23:09 Dose: 2 tab Zolpidem Tartrate (Ambien -) 10 mg PO HS PRN PRN Reason: INSOMNIA Last Admin: 04/04/18 21:14 Dose: 10 mg - Objective Vital Signs: Vital Signs Temperature 97.7 F 04/05/18 05:48 Pulse Rate 74 04/05/18 05:48 Respiratory Rate 18 04/05/18 05:48 Blood Pressure 128/73 04/05/18 05:48 O2 Sat by Pulse Oximetry (%) 99 04/04/18 21:00 Constitutional: Yes: No Distress, Moderate Distress Eyes: Yes: Conjunctiva Clear, EOM Intact HENT: Yes: Normocephalic Neck: Yes: Trachea Midline Cardiovascular: Yes: Regular Rate and Rhythm Respiratory: Yes: CTA Bilaterally Gastrointestinal: Yes: Normal Bowel Sounds Genitourinary: Yes: WNL Musculoskeletal: Yes: WNL Extremities: Yes: Amputation Edema: No Labs: CBC, BMP 04/05/18 09:30 04/04/18 18:37 INR, PTT INR 1.00 (0.82-1.09) 04/04/18 07:12 Problem List - Problems (1) Cardiomyopathy Assessment/Plan: continue current medications, can reassess for beta celia use as outpatient. He wishes to bring his care to [facility]. can follow up with Dr Vega in [place] [phone] when dcd. call us with questions. Code(s): I42.9 - CARDIOMYOPATHY, UNSPECIFIED Qualifiers: Cardiomyopathy type: dilated Qualified Code(s): I42.0 - Dilated cardiomyopathy
--- NOTE | 2018-04-05 15:27 | PN ---
Progress Note, Physician History of Present Illness: patient stable no issues looks like the patient bear weight - Current Medication List Current Medications: Active Medications Acetaminophen (Tylenol -) 650 mg PO Q6H PRN PRN Reason: FEVER Last Admin: 04/04/18 12:40 Dose: 650 mg Furosemide (Lasix -) 40 mg PO DAILY [facility] Last Admin: 04/05/18 10:05 Dose: 40 mg Cefazolin Sodium 1 gm/ (Dextrose) 50 mls @ 100 mls/hr IVPB Q8H-IV [facility] Last Admin: 04/05/18 10:05 Dose: 100 mls/hr Lactated Ringer's (Lactated Ringers Solution) 1,000 mls @ 75 mls/hr IV ASDIR [facility] Last Admin: 04/05/18 14:25 Dose: Not Given Insulin Aspart (Novolog Vial Sliding Scale -) 1 vial SQ ACHS [facility]; Protocol Last Admin: 04/05/18 11:30 Dose: Not Given Insulin Detemir (Levemir Vial) 45 units SQ 0700 [facility] Last Admin: 04/05/18 06:23 Dose: 45 units Morphine Sulfate (Morphine Sulfate) 2 mg IVPUSH Q6H PRN PRN Reason: PAIN LEVEL 4 - 6 Last Admin: 04/05/18 14:29 Dose: 2 mg Nicotine (Nicoderm Patch -) 21 mg TD DAILY [facility] Last Admin: 04/05/18 10:05 Dose: 21 mg Ondansetron HCl (Zofran Injection) 4 mg IVPUSH Q6H PRN PRN Reason: NAUSEA AND/OR VOMITING Polyethylene Glycol (Miralax (For Daily Use) -) 17 gm PO BID [facility] Last Admin: 04/05/18 10:05 Dose: 17 gm Pregabalin (Lyrica -) 100 mg PO BID [facility] Last Admin: 04/05/18 10:05 Dose: 100 mg Ramipril (Altace -) 2.5 mg PO DAILY [facility] Last Admin: 04/05/18 10:05 Dose: 2.5 mg Senna (Senna -) 2 tab PO HS PRN PRN Reason: CONSTIPATION Last Admin: 04/04/18 23:09 Dose: 2 tab Zolpidem Tartrate (Ambien -) 10 mg PO HS PRN PRN Reason: INSOMNIA Last Admin: 04/04/18 21:14 Dose: 10 mg - Objective Vital Signs: Vital Signs Temperature 97.7 F 04/05/18 05:48 Pulse Rate 74 04/05/18 05:48 Respiratory Rate 18 04/05/18 05:48 Blood Pressure 128/73 04/05/18 05:48 O2 Sat by Pulse Oximetry (%) 99 04/04/18 21:00 Constitutional: Yes: No Distress, Calm Cardiovascular: Yes: Regular Rate and Rhythm Respiratory: Yes: Regular, CTA Bilaterally Gastrointestinal: Yes: Normal Bowel Sounds, Soft Musculoskeletal: Yes: Other Extremities: Yes: Other Wound/Incision: Yes: Dressing Dry and Intact Neurological: Yes: Alert, Oriented Psychiatric: Yes: Alert, Oriented Labs: CBC, BMP 04/05/18 09:30 04/04/18 18:37 INR, PTT INR 1.00 (0.82-1.09) 04/04/18 07:12 Assessment/Plan Problem List - Problems (1) Cellulitis and abscess of toe Code(s): L03.039 - CELLULITIS OF UNSPECIFIED TOE; L02.619 - CUTANEOUS ABSCESS OF UNSPECIFIED FOOT Qualifiers: Laterality: left Qualified Code(s): L03.032 - Cellulitis of left toe; L02.612 - Cutaneous abscess of left foot 2 osteo of the toe wound infection multiple medical problems plan continue abx await for cx report once we have reports we will decide what abx await for all cx reports if all cx reports are negative then paient might just need oral abx for few days
--- NOTE | 2018-04-05 17:03 | PN ---
Progress Note, Physician History of Present Illness: stable - Current Medication List Current Medications: Active Medications Acetaminophen (Tylenol -) 650 mg PO Q6H PRN PRN Reason: FEVER Last Admin: 04/04/18 12:40 Dose: 650 mg Furosemide (Lasix -) 40 mg PO DAILY [facility] Last Admin: 04/05/18 10:05 Dose: 40 mg Cefazolin Sodium 1 gm/ (Dextrose) 50 mls @ 100 mls/hr IVPB Q8H-IV [facility] Last Admin: 04/05/18 10:05 Dose: 100 mls/hr Lactated Ringer's (Lactated Ringers Solution) 1,000 mls @ 75 mls/hr IV ASDIR [facility] Last Admin: 04/05/18 14:25 Dose: Not Given Insulin Aspart (Novolog Vial Sliding Scale -) 1 vial SQ ACHS [facility]; Protocol Last Admin: 04/05/18 11:30 Dose: Not Given Insulin Detemir (Levemir Vial) 45 units SQ 0700 [facility] Last Admin: 04/05/18 06:23 Dose: 45 units Morphine Sulfate (Morphine Sulfate) 2 mg IVPUSH Q6H PRN PRN Reason: PAIN LEVEL 4 - 6 Last Admin: 04/05/18 14:29 Dose: 2 mg Nicotine (Nicoderm Patch -) 21 mg TD DAILY [facility] Last Admin: 04/05/18 10:05 Dose: 21 mg Ondansetron HCl (Zofran Injection) 4 mg IVPUSH Q6H PRN PRN Reason: NAUSEA AND/OR VOMITING Polyethylene Glycol (Miralax (For Daily Use) -) 17 gm PO BID [facility] Last Admin: 04/05/18 10:05 Dose: 17 gm Pregabalin (Lyrica -) 100 mg PO BID [facility] Last Admin: 04/05/18 10:05 Dose: 100 mg Ramipril (Altace -) 2.5 mg PO DAILY [facility] Last Admin: 04/05/18 10:05 Dose: 2.5 mg Senna (Senna -) 2 tab PO HS PRN PRN Reason: CONSTIPATION Last Admin: 04/04/18 23:09 Dose: 2 tab Zolpidem Tartrate (Ambien -) 10 mg PO HS PRN PRN Reason: INSOMNIA Last Admin: 04/04/18 21:14 Dose: 10 mg - Objective Vital Signs: Vital Signs Temperature 98.3 F 04/05/18 13:25 Pulse Rate 75 04/05/18 13:25 Respiratory Rate 18 04/05/18 13:25 Blood Pressure 142/68 04/05/18 13:25 O2 Sat by Pulse Oximetry (%) 99 04/04/18 21:00 Constitutional: Yes: Anxious HENT: Yes: Atraumatic Neck: Yes: Supple Cardiovascular: Yes: Regular Rate and Rhythm Respiratory: Yes: CTA Bilaterally Gastrointestinal: Yes: Normal Bowel Sounds Extremities: Yes: Other (left foot in dressing) Edema: Yes Edema: LLE: 1+ Neurological: Yes: Alert, Oriented Labs: CBC, BMP 04/05/18 09:30 04/04/18 18:37 INR, PTT INR 1.00 (0.82-1.09) 04/04/18 07:12 Problem List - Problems (1) Cellulitis and abscess of toe Assessment/Plan: on iv abx s/p surgery prn pain meds cxs pending Code(s): L03.039 - CELLULITIS OF UNSPECIFIED TOE; L02.619 - CUTANEOUS ABSCESS OF UNSPECIFIED FOOT Qualifiers: Laterality: left Qualified Code(s): L03.032 - Cellulitis of left toe; L02.612 - Cutaneous abscess of left foot (2) Diabetes Assessment/Plan: on insulin, bgms blood sugars are fluctuating Code(s): E11.9 - TYPE 2 DIABETES MELLITUS WITHOUT COMPLICATIONS
[2018-04-05] MEDS ORDERED: PT OWN MED DRAWER 7, Y5N ONE (17:56)
[2018-04-05] MEDS: ACETAMINOPHEN 325 MG TABLET (FP) PO PRN (20:49)
[2018-04-05] MEDS ORDERED: INSULIN (NOVOLOG) ASPART 100 UNITS/ML 10ML VIAL ONE (21:36)
[2018-04-05] MEDS: ZOLPIDEM TARTRATE 5 MG TABLET PO PRN (22:16)
[2018-04-06 00:09] LABS: HBSAG SCREEN Negative (Negative); HEP A AB, IGM Negative (Negative); HEP B CORE AB, TOT Negative (Negative)
[2018-04-06] MEDS ORDERED: ceFAZolin SODIUM 1 GM VIAL ONE ×3 (02:13→16:56)
[2018-04-06] MEDS ORDERED: DEXTROSE 5%-WATER - 50 ML IVPB ONE ×3 (02:13→16:57)
[2018-04-06] MEDS: CEFAZOLIN 1 GM in DEXTROSE 5%-WATER - 50 ML IVPB SCH ×3 (02:41→17:14)
[2018-04-06] MEDS: INSULIN SLIDING SCALE (NOVOLOG) 1 VIAL SQ SCH ×4 (06:44→21:52)
[2018-04-06] MEDS: MORPHINE SULFATE 2 MG/ML VIAL IVPUSH PRN ×3 (06:44→22:16)
[2018-04-06] MEDS: INSULIN (LEVEMIR) 100 UNITS/ML UNITS SQ SCH (06:45)
[2018-04-06] MEDS: RAMIPRIL 2.5 MG CAPSULE (FP) PO SCH (09:20)
[2018-04-06] MEDS: FUROSEMIDE 40 MG TABLET (FP) PO SCH (09:20)
[2018-04-06] MEDS: PREGABALIN 100 MG CAPSULE PO SCH ×2 (09:20→21:50)
[2018-04-06] MEDS: POLYETHYLENE GLYCOL 3350 119 GM BTL PO SCH ×2 (09:21→21:50)
[2018-04-06] MEDS: NICOTINE 21 MG/24 HOURS TOPICAL PATCH TD SCH (09:21)
[2018-04-06] MEDS: LACTATED RINGERS SOLUTION 1,000 ML IV SCH (12:42)
--- NOTE | 2018-04-06 13:28 | PN ---
Progress Note (short form) - Note Progress Note: Patient seen in bed. POD#2. Still walking to bathroom. No pain. VSS tmax 98.8 vsgi, wbc=8.8, -ascending cellulitis, -tender, +staph coag negative, +packing intact, hiv negative, +hep a, om non complaint patient Dressing change done. Packing pulled. Betadine flush done of foot. May DC to home if ok with Medicine and ID. Daily betadine dressing changes, vns, hbo, wound care follow up. Will follow till dc.
[2018-04-06] MEDS ORDERED: BISACODYL 10 MG SUPP.RECT RC ONE (13:45)
--- NOTE | 2018-04-06 15:53 | PN ---
Progress Note, Physician History of Present Illness: patient stable podiatry note noted patient now showing staph in the wound - Current Medication List Current Medications: Active Medications Acetaminophen (Tylenol -) 650 mg PO Q6H PRN PRN Reason: FEVER Last Admin: 04/05/18 20:49 Dose: 650 mg Furosemide (Lasix -) 40 mg PO DAILY [facility] Last Admin: 04/06/18 09:20 Dose: 40 mg Cefazolin Sodium 1 gm/ (Dextrose) 50 mls @ 100 mls/hr IVPB Q8H-IV [facility] Last Admin: 04/06/18 09:21 Dose: 100 mls/hr Insulin Aspart (Novolog Vial Sliding Scale -) 1 vial SQ ACHS [facility]; Protocol Last Admin: 04/06/18 11:07 Dose: 14 units Insulin Detemir (Levemir Vial) 45 units SQ 0700 [facility] Last Admin: 04/06/18 06:45 Dose: 45 units Morphine Sulfate (Morphine Sulfate) 2 mg IVPUSH Q6H PRN PRN Reason: PAIN LEVEL 4 - 6 Last Admin: 04/06/18 14:07 Dose: 2 mg Nicotine (Nicoderm Patch -) 21 mg TD DAILY [facility] Last Admin: 04/06/18 09:21 Dose: 21 mg Ondansetron HCl (Zofran Injection) 4 mg IVPUSH Q6H PRN PRN Reason: NAUSEA AND/OR VOMITING Polyethylene Glycol (Miralax (For Daily Use) -) 17 gm PO BID [facility] Last Admin: 04/06/18 09:21 Dose: 17 gm Pregabalin (Lyrica -) 100 mg PO BID [facility] Last Admin: 04/06/18 09:20 Dose: 100 mg Ramipril (Altace -) 2.5 mg PO DAILY [facility] Last Admin: 04/06/18 09:20 Dose: 2.5 mg Senna (Senna -) 2 tab PO HS PRN PRN Reason: CONSTIPATION Last Admin: 04/04/18 23:09 Dose: 2 tab Zolpidem Tartrate (Ambien -) 10 mg PO HS PRN PRN Reason: INSOMNIA Last Admin: 04/05/18 22:16 Dose: 10 mg - Objective Vital Signs: Vital Signs Temperature 98.5 F 04/06/18 14:18 Pulse Rate 90 04/06/18 14:18 Respiratory Rate 18 04/06/18 14:18 Blood Pressure 109/60 04/06/18 14:18 O2 Sat by Pulse Oximetry (%) 98 04/06/18 09:00 Constitutional: Yes: No Distress, Calm Cardiovascular: Yes: Regular Rate and Rhythm Respiratory: Yes: Regular, CTA Bilaterally Gastrointestinal: Yes: Normal Bowel Sounds, Soft Musculoskeletal: Yes: Other Extremities: Yes: Other Integumentary: Yes: Erythema Wound/Incision: Yes: Dressing Dry and Intact Neurological: Yes: Alert, Oriented Psychiatric: Yes: Alert, Oriented Labs: CBC, BMP 04/05/18 09:30 04/06/18 12:30 INR, PTT INR 1.00 (0.82-1.09) 04/04/18 07:12 Assessment/Plan Problem List - Problems (1) Cellulitis and abscess of toe Code(s): L03.039 - CELLULITIS OF UNSPECIFIED TOE; L02.619 - CUTANEOUS ABSCESS OF UNSPECIFIED FOOT Qualifiers: Laterality: left Qualified Code(s): L03.032 - Cellulitis of left toe; L02.612 - Cutaneous abscess of left foot 2 osteo of the toe wound infection multiple medical problems plan cx result noted margins ahve come back positive patient will need treatment as osteo and will need wound care await for final identification of the cx will d/w the team
[2018-04-06] MEDS ORDERED: PICC LINE 8 ML FLUSH PROTOCOL IVPUSH PRN (16:14)
--- NOTE | 2018-04-06 16:19 | PN ---
Progress Note, Physician History of Present Illness: stable - Current Medication List Current Medications: Active Medications Acetaminophen (Tylenol -) 650 mg PO Q6H PRN PRN Reason: FEVER Last Admin: 04/05/18 20:49 Dose: 650 mg Furosemide (Lasix -) 40 mg PO DAILY [facility] Last Admin: 04/06/18 09:20 Dose: 40 mg IV Flush (Picc Line Flush) 8 ml IVPUSH PRN PRN PRN Reason: Protocol Cefazolin Sodium 1 gm/ (Dextrose) 50 mls @ 100 mls/hr IVPB Q8H-IV [facility] Last Admin: 04/06/18 09:21 Dose: 100 mls/hr Insulin Aspart (Novolog Vial Sliding Scale -) 1 vial SQ ACHS [facility]; Protocol Last Admin: 04/06/18 11:07 Dose: 14 units Insulin Detemir (Levemir Vial) 45 units SQ 0700 [facility] Last Admin: 04/06/18 06:45 Dose: 45 units Morphine Sulfate (Morphine Sulfate) 2 mg IVPUSH Q6H PRN PRN Reason: PAIN LEVEL 4 - 6 Last Admin: 04/06/18 14:07 Dose: 2 mg Nicotine (Nicoderm Patch -) 21 mg TD DAILY [facility] Last Admin: 04/06/18 09:21 Dose: 21 mg Ondansetron HCl (Zofran Injection) 4 mg IVPUSH Q6H PRN PRN Reason: NAUSEA AND/OR VOMITING Polyethylene Glycol (Miralax (For Daily Use) -) 17 gm PO BID [facility] Last Admin: 04/06/18 09:21 Dose: 17 gm Pregabalin (Lyrica -) 100 mg PO BID [facility] Last Admin: 04/06/18 09:20 Dose: 100 mg Ramipril (Altace -) 2.5 mg PO DAILY [facility] Last Admin: 04/06/18 09:20 Dose: 2.5 mg Senna (Senna -) 2 tab PO HS PRN PRN Reason: CONSTIPATION Last Admin: 04/04/18 23:09 Dose: 2 tab Zolpidem Tartrate (Ambien -) 10 mg PO HS PRN PRN Reason: INSOMNIA Last Admin: 04/05/18 22:16 Dose: 10 mg - Objective Vital Signs: Vital Signs Temperature 98.5 F 04/06/18 14:18 Pulse Rate 90 04/06/18 14:18 Respiratory Rate 18 04/06/18 14:18 Blood Pressure 109/60 04/06/18 14:18 O2 Sat by Pulse Oximetry (%) 98 04/06/18 09:00 Constitutional: Yes: No Distress HENT: Yes: Atraumatic Neck: Yes: Supple Cardiovascular: Yes: Regular Rate and Rhythm Respiratory: Yes: CTA Bilaterally Gastrointestinal: Yes: Normal Bowel Sounds Extremities: Yes: Other (left foot in dressing) Neurological: Yes: Alert, Oriented Labs: CBC, BMP 04/05/18 09:30 04/06/18 12:30 INR, PTT INR 1.00 (0.82-1.09) 04/04/18 07:12 Problem List - Problems (1) Cellulitis and abscess of toe Assessment/Plan: on iv abx s/p surgery prn pain meds awaiting identification d/w dr banegas pt needs treatment for osteo, can be dc tomorrow once have identification, needs to be placed Code(s): L03.039 - CELLULITIS OF UNSPECIFIED TOE; L02.619 - CUTANEOUS ABSCESS OF UNSPECIFIED FOOT Qualifiers: Laterality: left Qualified Code(s): L03.032 - Cellulitis of left toe; L02.612 - Cutaneous abscess of left foot (2) Diabetes Code(s): E11.9 - TYPE 2 DIABETES MELLITUS WITHOUT COMPLICATIONS
[2018-04-06] MEDS ORDERED: PANTOPRAZOLE SODIUM 40 MG VIAL IVPUSH ONE (19:46)
[2018-04-06] MEDS ORDERED: RANITIDINE HCL 150 MG TABLET (FP) PO ONE (19:55)
[2018-04-06] MEDS ORDERED: INSULIN (NOVOLOG) ASPART 100 UNITS/ML 10ML VIAL ONE (21:06)
[2018-04-06] MEDS: ZOLPIDEM TARTRATE 5 MG TABLET PO PRN (22:49)
[2018-04-07] MEDS ORDERED: ceFAZolin SODIUM 1 GM VIAL ONE ×2 (01:20→09:19)
[2018-04-07] MEDS ORDERED: DEXTROSE 5%-WATER - 50 ML IVPB ONE ×2 (01:20→09:19)
[2018-04-07] MEDS: CEFAZOLIN 1 GM in DEXTROSE 5%-WATER - 50 ML IVPB SCH ×2 (01:44→09:28)
[2018-04-07] MEDS: INSULIN SLIDING SCALE (NOVOLOG) 1 VIAL SQ SCH ×2 (07:02→11:16)
[2018-04-07] MEDS: INSULIN (LEVEMIR) 100 UNITS/ML UNITS SQ SCH (07:03)
[2018-04-07 07:49] LABS: BASO % 0.4 % (0-2.0); EOS % 6.7 % (0-4.5); HEMATOCRIT 35.4 % (35.4-49); HEMOGLOBIN 11.5 GM/dL (11.7-16.9); LYMPH % 21.4 % (8-40); MCH 28.1 pg (25.7-33.7); MCHC 32.6 g/dl (32.0-35.9); MEAN CELL VOLUME 86.3 fl (80-96); MEAN PLT VOLUME 10.1 fl (7.5-11.1); NEUT % 66.5 % (42.8-82.8); PLATELET COUNT 175 K/MM3 (134-434); RDW 15.8 % (11.9-15.9); WHITE BLOOD COUNT 10.3 K/mm3 (4.0-10.0)
--- NOTE | 2018-04-07 08:14 | PN ---
Progress Note (short form) - Note Progress Note: Patient seen in bed. POD#3. No pain. VSS tmax 98.3 vsgi, wbc=10.3, -ascending cellulitis, -tender, +staph coag negative, retention sutures in place, -drainage, -mal odor, dry eschar right big toe medial border, cultures unchanged, om non complaint patient Dressing change done. Betadine flush done of foot. May DC to home if ok with Medicine and ID. Daily betadine dressing changes, vns, hbo, wound care follow up. Will follow till dc. Santyl to right big toe daily. VNS referral put in. will follow till dc.
[2018-04-07] MEDS: RAMIPRIL 2.5 MG CAPSULE (FP) PO SCH (09:28)
[2018-04-07] MEDS: PREGABALIN 100 MG CAPSULE PO SCH (09:28)
[2018-04-07] MEDS: NICOTINE 21 MG/24 HOURS TOPICAL PATCH TD SCH (09:28)
[2018-04-07] MEDS: FUROSEMIDE 40 MG TABLET (FP) PO SCH (09:28)
[2018-04-07] MEDS: POLYETHYLENE GLYCOL 3350 119 GM BTL PO SCH (09:30)
[2018-04-07] MEDS ORDERED: COLLAGENASE CLOSTRIDIUM HIST. 30 GRAMS TUBE TP SCH (10:00)
[2018-04-07 10:01] VITALS: PULSE 92
[2018-04-07] MEDS: MORPHINE SULFATE 2 MG/ML VIAL IVPUSH PRN (10:10)
[2018-04-07] MEDS ORDERED: INSULIN (NOVOLOG) ASPART 100 UNITS/ML 10ML VIAL ONE (10:43)
--- NOTE | 2018-04-07 12:32 | PN ---
Progress Note, Physician History of Present Illness: patient doing well no complaints wound cx result noted - Current Medication List Current Medications: Active Medications Acetaminophen (Tylenol -) 650 mg PO Q6H PRN PRN Reason: FEVER Last Admin: 04/05/18 20:49 Dose: 650 mg Collagenase (Santyl -) 1 applic TP DAILY [facility]; Protocol Furosemide (Lasix -) 40 mg PO DAILY [facility] Last Admin: 04/07/18 09:28 Dose: 40 mg IV Flush (Picc Line Flush) 8 ml IVPUSH PRN PRN PRN Reason: Protocol Cefazolin Sodium 1 gm/ (Dextrose) 50 mls @ 100 mls/hr IVPB Q8H-IV [facility] Last Admin: 04/07/18 09:28 Dose: 100 mls/hr Insulin Aspart (Novolog Vial Sliding Scale -) 1 vial SQ ACHS [facility]; Protocol Last Admin: 04/07/18 11:16 Dose: 10 units Insulin Detemir (Levemir Vial) 45 units SQ 0700 [facility] Last Admin: 04/07/18 07:03 Dose: 45 units Morphine Sulfate (Morphine Sulfate) 2 mg IVPUSH Q6H PRN PRN Reason: PAIN LEVEL 4 - 6 Last Admin: 04/07/18 10:10 Dose: 2 mg Nicotine (Nicoderm Patch -) 21 mg TD DAILY [facility] Last Admin: 04/07/18 09:28 Dose: Not Given Ondansetron HCl (Zofran Injection) 4 mg IVPUSH Q6H PRN PRN Reason: NAUSEA AND/OR VOMITING Polyethylene Glycol (Miralax (For Daily Use) -) 17 gm PO BID [facility] Last Admin: 04/07/18 09:30 Dose: Not Given Pregabalin (Lyrica -) 100 mg PO BID [facility] Last Admin: 04/07/18 09:28 Dose: 100 mg Ramipril (Altace -) 2.5 mg PO DAILY [facility] Last Admin: 04/07/18 09:28 Dose: 2.5 mg Senna (Senna -) 2 tab PO HS PRN PRN Reason: CONSTIPATION Last Admin: 04/04/18 23:09 Dose: 2 tab Zolpidem Tartrate (Ambien -) 10 mg PO HS PRN PRN Reason: INSOMNIA Last Admin: 04/06/18 22:49 Dose: 10 mg - Objective Vital Signs: Vital Signs Temperature 98.6 F 04/07/18 10:00 Pulse Rate 92 H 04/07/18 10:00 Respiratory Rate 18 04/07/18 10:00 Blood Pressure 144/79 04/07/18 10:00 O2 Sat by Pulse Oximetry (%) 98 04/07/18 09:00 Constitutional: Yes: No Distress, Calm Cardiovascular: Yes: Regular Rate and Rhythm Respiratory: Yes: Regular, CTA Bilaterally Gastrointestinal: Yes: Normal Bowel Sounds, Soft Musculoskeletal: Yes: WNL Extremities: Yes: Other Wound/Incision: Yes: Dressing Dry and Intact Neurological: Yes: Alert, Oriented Psychiatric: Yes: Alert, Oriented Labs: CBC, BMP 04/07/18 06:55 04/06/18 12:30 INR, PTT INR 1.00 (0.82-1.09) 04/04/18 07:12 Assessment/Plan Problem List - Problems (1) Cellulitis and abscess of toe Code(s): L03.039 - CELLULITIS OF UNSPECIFIED TOE; L02.619 - CUTANEOUS ABSCESS OF UNSPECIFIED FOOT Qualifiers: Laterality: left Qualified Code(s): L03.032 - Cellulitis of left toe; L02.612 - Cutaneous abscess of left foot 2 osteo of the toe wound infection multiple medical problems i discussed in detail with the lab who ran the cx twice uptill now it is still showing mssa staph i am going to start patient on ceftriaxone 2 gm daily will give it for 5 weeks monitor cbc esr crp and bmp rest continue current mgmt
[2018-04-07 15:50] VITALS: BP 147/89; TEMP 98.1
--- NOTE | 2018-04-07 17:22 | PATH ---
Surgical Pathology Report Patient Name: KAY ALLEN [facility]. Rec. #: [id number] /Age/Gender: 1960 (Age: 57) / M Account: [id number] Location: [address] [place] [address]/[facility] Taken: 04/04/2018 Received: 04/04/2018 Reported: 04/07/2018 Physicians: BRITNEY Salazar M.D. Specimen(s) Received A: DISTAL TOE LEFT FOOT B: FIRST METATARSAL SHAFT LEFT FOOT Clinical History Cellulitis of toe left foot Final Diagnosis A. DISTAL TOE LEFT FOOT, AMPUTATION: AMPUTATED TOE SHOWING SEVERE ACUTE AND CHRONIC INFLAMMATION. BONE WITH ACUTE OSTEOMYELITIS. THE BONE MARGIN SHOWED CHRONIC OSTEOMYELITIS. VIABLE SKIN AND SOFT TISSUE WITH CHRONIC INFLAMMATION. B. FIRST METATARSAL SHAFT LEFT FOOT: ACUTE OSTEOMYELITIS IDENTIFIED IN TWO PORTIONS OF BONE FRAGMENTS. THE LARGEST PIECE BONE SHOWING REACTIVE CHANGE. Electronically Signed Yamile Jones M.D. Gross Description A. Received in formalin labeled "distal toe," is a 6.0 x 5.0 x 4.5 cm distal toe amputation specimen. The epidermal surface displays a 5.0 x 3.4 cm ulcerated lesion extending to and involving the underlying bone. The lesion focally extends to the skin and soft tissue margin. Senior Operations Analyst sections are submitted in 3 cassettes as follows: 1-lesion with underlying bone, following decalcification; 2-skin and soft tissue margin; 3-bone margin, following decalcification. B. Received in formalin labeled "first metatarsal shaft left," is a 4.0 x 3.0 x 2.8 cm portion of bone with trabecular bone at one end and articular cartilage at the opposing end. Also received within the same container are 2 additional, undesignated bone fragments with attached soft tissue, averaging 2.5 cm in greatest dimension. Senior Operations Analyst sections are submitted in 3 cassettes as follows: 1-bone margin with trabecular bone, following decalcification; 2-margin with articular cartilage, following decalcification; 3-separately received bone fragments, following decalcification. 04/05/2018 saudi04/05/2018
--- NOTE | 2018-04-07 17:30 | DS ---
Physical Examination Vital Signs: Vital Signs Temperature 98.1 F 04/07/18 15:44 Pulse Rate 92 H 04/07/18 15:44 Respiratory Rate 20 04/07/18 15:44 Blood Pressure 147/89 04/07/18 15:44 O2 Sat by Pulse Oximetry (%) 98 04/07/18 09:00 Constitutional: Yes: No Distress HENT: Yes: Atraumatic Neck: Yes: Supple Cardiovascular: Yes: Regular Rate and Rhythm Respiratory: Yes: CTA Bilaterally Gastrointestinal: Yes: Normal Bowel Sounds Extremities: Yes: Other (left foot osteo) Neurological: Yes: Alert, Oriented Labs: CBC, BMP 04/07/18 06:55 04/06/18 12:30 Discharge Summary Reason For Visit: CELLULITIS OF TOE Condition: Stable - Instructions Referrals: Sera Tim MD [Primary Care Provider] - Disposition: HOME - Home Medications Comprehensive Discharge Medication List: Ambulatory Orders Furosemide [Lasix] 40 mg PO DAILY 03/29/18 Insulin Aspart [Novolog] 100 unit SQ [facility] 03/29/18 Insulin Glargine,Hum.rec.anlog [Lantus] 45 unit SQ DAILY 03/29/18 Pregabalin [Lyrica] 100 mg PO BID 03/29/18 Ramipril [Altace] 2.5 mg PO DAILY 03/29/18
--- NOTE | 2018-04-08 09:39 | EKG ---
Test Reason : Blood Pressure : / mmHG Vent. Rate : 088 BPM Atrial Rate : 088 BPM P-R Int : 170 ms QRS Dur : 094 ms QT Int : 386 ms P-R-T Axes : 054 -50 062 degrees QTc Int : 467 ms NORMAL SINUS RHYTHM POSSIBLE LEFT ATRIAL ENLARGEMENT LEFT ANTERIOR FASCICULAR BLOCK ABNORMAL ECG WHEN COMPARED WITH ECG OF 04-APR-2018 08:59, NO SIGNIFICANT CHANGE WAS FOUND Confirmed by ASA ORTIZ MD ([id number]) on 04/08/2018 9:39:48 AM Referred By: Confirmed By:ASA ORTIZ MD
== END 2018-04-07 15:51 | disposition home or self-care (01) | DRG 617 ==
LOC: JER 10:07 → JERBED 14:01 → J5S 15:46
PROVIDERS: ADMIT Internal Medicine; ATTEND Internal Medicine
PROC: 0QDP0ZZ Extraction of Left Metatarsal, Open Approach (ICD-10-PCS; 2018-04-04)
PROC: 05H633Z Insertion of Infusion Device into Left Subclavian Vein, Percutaneous Approach (ICD-10-PCS; 2018-04-04)
PROC: B517ZZA Fluoroscopy of Left Subclavian Vein, Guidance (ICD-10-PCS; 2018-04-04)
PROC: 0Y6Q0Z0 Detachment at Left 1st Toe, Complete, Open Approach (ICD-10-PCS; principal; 2018-04-04 10:00)
DX: E11.69 Type 2 diabetes mellitus with other specified complication (principal); M86.8X7 Other osteomyelitis, ankle and foot; I42.0 Dilated cardiomyopathy; L97.528 Non-pressure chronic ulcer of other part of left foot with other specified severity; E11.622 Type 2 diabetes mellitus with other skin ulcer; E11.40 Type 2 diabetes mellitus with diabetic neuropathy, unspecified; Z79.4 Long term (current) use of insulin; B95.61 Methicillin susceptible Staphylococcus aureus infection as the cause of diseases classified elsewhere; L03.032 Cellulitis of left toe; I11.0 Hypertensive heart disease with heart failure; I50.9 Heart failure, unspecified; Z91.14 Patient's other noncompliance with medication regimen; Z95.810 Presence of automatic (implantable) cardiac defibrillator; Z89.422 Acquired absence of other left toe(s); F14.10 Cocaine abuse, uncomplicated
CPT/HCPCS: 36415; 36569; 71045-TC-FY; 73630-TC-LT; 73660-TC-LT-FY; 77001-TC-FY; 78315-TC; 80053; 81003; 81015; 82550; 82947; 82962; 83036; 83605; 84484; 85025; 85610; 85651; 86140; 86704; 86706; 86708; 87040; 87070; 87186; 87205; 87340; 87389; 88305-TC; 88311-TC; 93005; 93010; 93306-TC; 94760; 99282-25; A9503; C1751; J1644

== ENCOUNTER 2018-04-11 08:45 | Day surgery (SDC) | payer OTHER ==
[2018-04-11] MEDS ORDERED: SODIUM CHLORIDE 100 ML IVPB ONE (09:32)
[2018-04-13 18:28] VITALS: BP 152/80; PULSE 84; TEMP 96.5
--- NOTE | 2018-04-18 12:33 | PN ---
Progress Note (short form) - Note Progress Note: This note is for April 11 date of service. Patient presents to wound care for follow up left foot. Pt is s/p amputation. 3.5x1x0.2 left forefoot, +granulating wound, -drainage, -mal odor, +dry eschar right big toe grade 3 wound left grade 0 wound right big toe om right big toe Debride. Dressing change done. Will run for biologic. PTR 1 week. Continue offloading shoe left. Gavino if any problems or questions.
== END 2018-04-11 10:30 | disposition home or self-care (01) ==
LOC: JINFUSION 08:45
PROVIDERS: ATTEND Internal Medicine Infectious Disease
DX: L03.032 Cellulitis of left toe (principal); L02.612 Cutaneous abscess of left foot; E11.51 Type 2 diabetes mellitus with diabetic peripheral angiopathy without gangrene; M86.672 Other chronic osteomyelitis, left ankle and foot
CPT/HCPCS: 96365; G0277; G0463-25

== ENCOUNTER 2018-04-14 09:04 | Day surgery (SDC) | payer OTHER ==
[2018-04-14] MEDS ORDERED: CEFTRIAXONE 2 GM in DEXTROSE 5%-WATER 100 ML IVPB ONE (09:50)
[2018-04-14 10:36] LABS: HEMATOCRIT 36.8 % (35.4-49); HEMOGLOBIN 11.9 GM/dL (11.7-16.9); MCH 28.3 pg (25.7-33.7); MCHC 32.5 g/dl (32.0-35.9); MEAN CELL VOLUME 87.1 fl (80-96); MEAN PLT VOLUME 9.6 fl (7.5-11.1); PLATELET COUNT 178 K/MM3 (134-434); RBC 4.22 M/mm3 (4.00-5.60); RDW 16.2 % (11.9-15.9); WHITE BLOOD COUNT 6.6 K/mm3 (4.0-10.0)
[2018-04-14 11:14] LABS: CHLORIDE 103 mmol/L (98-107); POTASSIUM 4.6 mmol/L (3.5-5.1); SODIUM 137 mmol/L (136-145)
[2018-04-14 11:15] VITALS: TEMP 98
[2018-04-14 11:17] VITALS: BP 141/86; PULSE 89
[2018-04-14 11:19] LABS: ANION GAP 7 (8-16); BLOOD UREA NITROGEN 15 mg/dL (7-18); CALCIUM 8.4 mg/dL (8.5-10.1); CO2 27 mmol/L (21-32); CREATININE 1.4 mg/dL (0.7-1.3); GLUCOSE,RANDOM 368 mg/dL (74-106)
[2018-04-14 12:03] LABS: ERYTHROCYTE SEDIMENTATION RATE 90 mm/hr (0-20)
== END 2018-04-14 10:35 | disposition home or self-care (01) ==
LOC: JINFUSION 09:04
PROVIDERS: ATTEND Internal Medicine Infectious Disease
DX: L03.032 Cellulitis of left toe (principal); L02.612 Cutaneous abscess of left foot; E11.51 Type 2 diabetes mellitus with diabetic peripheral angiopathy without gangrene; M86.672 Other chronic osteomyelitis, left ankle and foot
CPT/HCPCS: 36415; 80048; 82962; 85027; 85651; 86140; 96365; 96367; G0277

== ENCOUNTER 2018-04-17 08:44 | Day surgery (SDC) | payer OTHER ==
[2018-04-17] MEDS ORDERED: CEFTRIAXONE 2 GM in DEXTROSE 5%-WATER 100 ML IVPB ONE (08:50)
[2018-04-17 10:11] VITALS: BP 133/80; PULSE 83; TEMP 98.4
== END 2018-04-17 10:12 | disposition home or self-care (01) ==
LOC: JINFUSION 08:44
PROVIDERS: ATTEND Internal Medicine Infectious Disease
DX: L03.032 Cellulitis of left toe (principal); L02.612 Cutaneous abscess of left foot; E11.51 Type 2 diabetes mellitus with diabetic peripheral angiopathy without gangrene; M86.672 Other chronic osteomyelitis, left ankle and foot
CPT/HCPCS: 82962; 96365; G0463-25

== ENCOUNTER 2018-04-18 08:59 | Day surgery (SDC) | payer OTHER ==
[2018-04-18 14:04] VITALS: BP 124/86; PULSE 84; TEMP 96.3
--- NOTE | 2018-04-18 19:39 | PN ---
Progress Note (short form) - Note Progress Note: Patient presents after having HBO today. Has been managing his own wound care with Santyl. +retention sutures intact, +granulating distal wound left, 1x1.4x0.6cm, new wound left plantar foot 2.6x0.3x1.2cm, -drainage, -cellulitis right big toe wound 2.0x0.3x0.9cm, -drainage, -cellulitis 2 wounds left normal post op left om right hallux wound right hallux debride all wounds to bleeding. betadine scrub of all wounds. santyl to all wounds. continue hbo. refused TCC EZ Cast cannot get his pants off if he puts cast on. will apply on when he returns. Leaves today instructed once again on how to use orthowedge shoe on left foot. Wearing a regular shoe on right as he refuses post op shoe today. Will try to order a topical biologic for him. Once again re-iterated the need for compliance.
== END 2018-04-18 10:30 | disposition home or self-care (01) ==
LOC: JINFUSION 08:59
PROVIDERS: ATTEND Internal Medicine Infectious Disease
DX: L03.032 Cellulitis of left toe (principal); L02.612 Cutaneous abscess of left foot
CPT/HCPCS: 82962; 96365; G0277

== ENCOUNTER 2018-04-19 08:47 | Day surgery (SDC) | payer OTHER ==
[2018-04-19] MEDS ORDERED: CEFTRIAXONE 2 GM in DEXTROSE 5%-WATER 100 ML IVPB ONE (09:45)
[2018-04-19 10:47] VITALS: BP 142/93; PULSE 79; TEMP 98.1
== END 2018-04-19 10:00 | disposition home or self-care (01) ==
LOC: JINFUSION 08:47
PROVIDERS: ATTEND Internal Medicine Infectious Disease
DX: L03.032 Cellulitis of left toe (principal); L02.612 Cutaneous abscess of left foot
CPT/HCPCS: 82962; 96365; G0463-25

== ENCOUNTER 2018-04-20 08:52 | Day surgery (SDC) | payer OTHER ==
[2018-04-20 09:50] VITALS: TEMP 98.7
[2018-04-20 10:54] VITALS: BP 156/90; PULSE 75
[2018-04-20] MEDS ORDERED: CEFTRIAXONE 2 GM in DEXTROSE 5%-WATER 100 ML IVPB ONE (11:00)
== END 2018-04-20 10:30 | disposition home or self-care (01) ==
LOC: JINFUSION 08:52
PROVIDERS: ATTEND Internal Medicine Infectious Disease
DX: L03.032 Cellulitis of left toe (principal); L02.612 Cutaneous abscess of left foot
CPT/HCPCS: 82962; 96365; G0277

== ENCOUNTER 2018-04-26 08:55 | Day surgery (SDC) | payer OTHER ==
[2018-04-26 09:32] VITALS: PULSE 74; TEMP 98.1
[2018-04-26] MEDS ORDERED: CEFTRIAXONE 2 GM in DEXTROSE 5%-WATER 100 ML IVPB ONE (10:00)
[2018-04-26 10:17] VITALS: BP 144/87
== END 2018-04-26 10:10 | disposition home or self-care (01) ==
LOC: JINFUSION 08:55
PROVIDERS: ATTEND Internal Medicine Infectious Disease
DX: L03.032 Cellulitis of left toe (principal); L02.612 Cutaneous abscess of left foot; E11.9 Type 2 diabetes mellitus without complications; Z79.4 Long term (current) use of insulin; Z72.0 Tobacco use
CPT/HCPCS: 82962; 96365; G0277

== ENCOUNTER 2018-04-28 08:41 | Day surgery (SDC) | payer OTHER ==
[2018-04-28] MEDS ORDERED: SODIUM CHLORIDE 100 ML IVPB ONE (09:04)
[2018-04-28 09:22] LABS: HEMATOCRIT 38.9 % (35.4-49); HEMOGLOBIN 12.8 GM/dL (11.7-16.9); MCH 28.6 pg (25.7-33.7); MCHC 32.8 g/dl (32.0-35.9); MEAN CELL VOLUME 87.1 fl (80-96); MEAN PLT VOLUME 8.8 fl (7.5-11.1); PLATELET COUNT 167 K/MM3 (134-434); RBC 4.47 M/mm3 (4.00-5.60); WHITE BLOOD COUNT 7.5 K/mm3 (4.0-10.0)
[2018-04-28] MEDS ORDERED: CEFTRIAXONE 2 GM in DEXTROSE 5%-WATER 100 ML IVPB ONE (09:30)
[2018-04-28 09:40] LABS: ANION GAP 6 (8-16); BLOOD UREA NITROGEN 8 mg/dL (7-18); CALCIUM 8.4 mg/dL (8.5-10.1); CHLORIDE 105 mmol/L (98-107); CO2 30 mmol/L (21-32); CREATININE 1.1 mg/dL (0.7-1.3); GLUCOSE,RANDOM 147 mg/dL (74-106); POTASSIUM 4.2 mmol/L (3.5-5.1); SODIUM 141 mmol/L (136-145)
[2018-04-28 10:53] LABS: ERYTHROCYTE SEDIMENTATION RATE 26 mm/hr (0-20)
[2018-04-28 11:02] VITALS: TEMP 98.6
[2018-04-28 11:10] VITALS: BP 143/90; PULSE 76
== END 2018-04-28 10:20 | disposition home or self-care (01) ==
LOC: JINFUSION 08:41
PROVIDERS: ATTEND Internal Medicine Infectious Disease
DX: L03.032 Cellulitis of left toe (principal); L02.612 Cutaneous abscess of left foot; E11.9 Type 2 diabetes mellitus without complications; Z79.4 Long term (current) use of insulin
CPT/HCPCS: 36415; 80048; 82962; 85027; 85651; 86140; 96365; G0277

== ENCOUNTER 2018-04-29 09:12 | Day surgery (SDC) | payer OTHER ==
[2018-04-29] MEDS ORDERED: DEXTROSE 5%-WATER 100 ML IVPB ONE (09:44)
[2018-04-29] MEDS ORDERED: CEFTRIAXONE 2 GM in DEXTROSE 5%-WATER 100 ML IVPB ONE (10:00)
[2018-04-29 11:06] VITALS: BP 144/90; PULSE 75; TEMP 98.7
== END 2018-04-29 11:06 | disposition home or self-care (01) ==
LOC: JINFUSION 09:12 → J7W 09:13 → JINFUSION 11:06
PROVIDERS: ATTEND Internal Medicine Infectious Disease
DX: L03.032 Cellulitis of left toe (principal); L02.612 Cutaneous abscess of left foot; E11.9 Type 2 diabetes mellitus without complications; Z79.4 Long term (current) use of insulin
CPT/HCPCS: 96365; 96366

== ENCOUNTER 2018-04-30 09:42 | Day surgery (SDC) | payer OTHER ==
[2018-04-30] MEDS ORDERED: CEFTRIAXONE 2 GM in DEXTROSE 5%-WATER 100 ML IVPB ONE (10:15)
[2018-04-30] MEDS ORDERED: DEXTROSE 5%-WATER 100 ML IVPB ONE (10:16)
[2018-04-30 11:13] VITALS: BP 141/82; PULSE 93; TEMP 98.5
== END 2018-04-30 11:13 | disposition home or self-care (01) ==
LOC: JINFUSION 09:42 → J7W 09:45 → JINFUSION 11:13
PROVIDERS: ATTEND Internal Medicine Infectious Disease
DX: L03.032 Cellulitis of left toe (principal); L02.612 Cutaneous abscess of left foot; E11.9 Type 2 diabetes mellitus without complications; Z79.4 Long term (current) use of insulin
CPT/HCPCS: 96365; 96366

== ENCOUNTER 2018-05-01 08:59 | Day surgery (SDC) | payer OTHER ==
[2018-05-01] MEDS ORDERED: CEFTRIAXONE 2 GM in DEXTROSE 5%-WATER 100 ML IVPB ONE (09:00)
[2018-05-01 13:43] VITALS: BP 154/81; PULSE 76; TEMP 98.7
== END 2018-05-01 10:15 | disposition home or self-care (01) ==
LOC: JINFUSION 08:59
PROVIDERS: ATTEND Internal Medicine Infectious Disease
DX: L03.032 Cellulitis of left toe (principal); L02.612 Cutaneous abscess of left foot; E11.9 Type 2 diabetes mellitus without complications; Z79.4 Long term (current) use of insulin
CPT/HCPCS: 82962; 96365; 96366; G0277

== ENCOUNTER 2018-05-03 08:55 | Day surgery (SDC) | payer OTHER ==
[2018-05-03] MEDS ORDERED: CEFTRIAXONE 2 GM in SODIUM CHLORIDE 100 ML IVPB ONE (09:00)
[2018-05-03 13:43] VITALS: BP 148/70; PULSE 84; TEMP 98.2
== END 2018-05-03 10:35 | disposition home or self-care (01) ==
LOC: JINFUSION 08:55
PROVIDERS: ATTEND Internal Medicine Infectious Disease
DX: L03.032 Cellulitis of left toe (principal); L02.612 Cutaneous abscess of left foot; E11.9 Type 2 diabetes mellitus without complications; Z79.4 Long term (current) use of insulin; E11.51 Type 2 diabetes mellitus with diabetic peripheral angiopathy without gangrene; M86.672 Other chronic osteomyelitis, left ankle and foot
CPT/HCPCS: 82962; 96365; 96366; G0277

== ENCOUNTER 2018-05-04 08:44 | Day surgery (SDC) | payer OTHER ==
[~2018-05-04 08:44] MED LIST: CEFTRIAXONE 2 GM in DEXTROSE 5%-WATER 100 ML IVPB ONE
[2018-05-04 12:30] VITALS: BP 146/82; PULSE 79; TEMP 98.2
== END 2018-05-04 10:30 | disposition home or self-care (01) ==
LOC: JINFUSION 08:44
PROVIDERS: ATTEND Internal Medicine Infectious Disease
DX: L03.032 Cellulitis of left toe (principal); L02.612 Cutaneous abscess of left foot; E11.9 Type 2 diabetes mellitus without complications; Z79.4 Long term (current) use of insulin
CPT/HCPCS: 82962; 96365; 96366; G0277

== ENCOUNTER 2018-05-05 08:43 | Day surgery (SDC) | payer OTHER ==
[2018-05-05 09:07] LABS: HEMATOCRIT 39.7 % (35.4-49); HEMOGLOBIN 13.2 GM/dL (11.7-16.9); MCH 28.8 pg (25.7-33.7); MCHC 33.2 g/dl (32.0-35.9); MEAN CELL VOLUME 86.7 fl (80-96); MEAN PLT VOLUME 8.8 fl (7.5-11.1); PLATELET COUNT 155 K/MM3 (134-434); RBC 4.58 M/mm3 (4.00-5.60); RDW 16.6 % (11.9-15.9); WHITE BLOOD COUNT 7.1 K/mm3 (4.0-10.0)
[2018-05-05 09:29] LABS: ANION GAP 5 (8-16); BLOOD UREA NITROGEN 9 mg/dL (7-18); CALCIUM 8.9 mg/dL (8.5-10.1); CHLORIDE 103 mmol/L (98-107); CO2 31 mmol/L (21-32); CREATININE 1.1 mg/dL (0.7-1.3); GLUCOSE,RANDOM 177 mg/dL (74-106); POTASSIUM 4.3 mmol/L (3.5-5.1); SODIUM 139 mmol/L (136-145)
[2018-05-05] MEDS ORDERED: CEFTRIAXONE 2 GM in DEXTROSE 5%-WATER 100 ML IVPB ONE (10:15)
[2018-05-05 10:17] LABS: ERYTHROCYTE SEDIMENTATION RATE 25 mm/hr (0-20)
[2018-05-05 10:30] VITALS: TEMP 98.4
[2018-05-05 11:14] VITALS: BP 150/84; PULSE 81
== END 2018-05-05 10:50 | disposition home or self-care (01) ==
LOC: JINFUSION 08:43
PROVIDERS: ATTEND Internal Medicine Infectious Disease
DX: L03.032 Cellulitis of left toe (principal); L02.612 Cutaneous abscess of left foot; E11.9 Type 2 diabetes mellitus without complications; Z79.4 Long term (current) use of insulin
CPT/HCPCS: 36415; 80048; 85027; 85651; 86140; 96365

== ENCOUNTER 2018-05-06 10:12 | Day surgery (SDC) | payer OTHER ==
[2018-05-06] MEDS ORDERED: CEFTRIAXONE 2 GM in DEXTROSE 5%-WATER 100 ML IVPB ONE (10:45)
[2018-05-06] MEDS ORDERED: DEXTROSE 5%-WATER 100 ML IVPB ONE (10:56)
[2018-05-06 15:09] VITALS: BP 140/88; PULSE 85; TEMP 97.7
== END 2018-05-06 11:45 | disposition home or self-care (01) ==
LOC: JINFUSION 10:12 → J7W 10:13 → JINFUSION 13:28
PROVIDERS: ATTEND Internal Medicine Infectious Disease
DX: L03.032 Cellulitis of left toe (principal); L02.612 Cutaneous abscess of left foot; E11.9 Type 2 diabetes mellitus without complications; Z79.4 Long term (current) use of insulin
CPT/HCPCS: 96365

== ENCOUNTER 2018-05-07 11:19 | Day surgery (SDC) | payer OTHER ==
[2018-05-07] MEDS ORDERED: DEXTROSE 5%-WATER 100 ML IVPB ONE (11:41)
[2018-05-07] MEDS ORDERED: CEFTRIAXONE 2 GM in DEXTROSE 5%-WATER 100 ML IVPB ONE (11:45)
[2018-05-07 12:57] VITALS: TEMP 98.6
[2018-05-07 13:00] VITALS: BP 151/92; PULSE 86
== END 2018-05-07 12:30 | disposition home or self-care (01) ==
LOC: JINFUSION 11:19 → J7W 11:20 → JINFUSION 12:30
PROVIDERS: ATTEND Internal Medicine Infectious Disease
DX: L03.032 Cellulitis of left toe (principal); L02.612 Cutaneous abscess of left foot; E11.9 Type 2 diabetes mellitus without complications; Z79.4 Long term (current) use of insulin
CPT/HCPCS: 96365

== ENCOUNTER 2018-05-08 09:10 | Day surgery (SDC) | payer OTHER ==
[2018-05-08 12:14] VITALS: BP 116/66; PULSE 86; TEMP 98.2
== END 2018-05-08 10:43 | disposition home or self-care (01) ==
LOC: JINFUSION 09:10
PROVIDERS: ATTEND Internal Medicine Infectious Disease
DX: L03.032 Cellulitis of left toe (principal); L02.612 Cutaneous abscess of left foot; E11.9 Type 2 diabetes mellitus without complications; Z79.4 Long term (current) use of insulin
CPT/HCPCS: 82962; 96365; G0277

== ENCOUNTER 2018-05-10 08:44 | Day surgery (SDC) | payer OTHER ==
[2018-05-10] MEDS ORDERED: CEFTRIAXONE 2 GM in DEXTROSE 5%-WATER 100 ML IVPB ONE (09:00)
[2018-05-10 09:26] VITALS: TEMP 98.4
[2018-05-10 10:20] VITALS: BP 150/84; PULSE 75
== END 2018-05-10 10:20 | disposition home or self-care (01) ==
LOC: JINFUSION 08:44
PROVIDERS: ATTEND Internal Medicine Infectious Disease
DX: L03.032 Cellulitis of left toe (principal); L02.612 Cutaneous abscess of left foot; E11.9 Type 2 diabetes mellitus without complications; Z79.4 Long term (current) use of insulin; E11.51 Type 2 diabetes mellitus with diabetic peripheral angiopathy without gangrene; M86.672 Other chronic osteomyelitis, left ankle and foot
CPT/HCPCS: 82962; 96365; G0277

== ENCOUNTER → 2018-05-15 | Day surgery (SDC) | payer OTHER ==
[2018-05-15 15:26] VITALS: BP 140/95; PULSE 86; TEMP 99.1
== END | disposition home or self-care (01) ==
LOC: JINFUSION 09:20
PROVIDERS: ATTEND Internal Medicine Infectious Disease
PROC: 3E033GC Introduction of Other Therapeutic Substance into Peripheral Vein, Percutaneous Approach (ICD-10-PCS; principal; 2018-05-15)
DX: Z53.8 Procedure and treatment not carried out for other reasons (principal)
CPT/HCPCS: 82962; G0277

== ENCOUNTER 2019-04-21 08:11 | Emergency (ER) | payer OTHER ==
[2019-04-21 08:37] VITALS: BP 132/85; PULSE 72; TEMP 99; BMI 41.8
--- NOTE | 2019-04-21 09:32 | PDOC ---
History of Present Illness - General Chief Complaint: Cold Symptoms Stated Complaint: CONJESTED/ COUGHING/ FEVER Time Seen by Provider: 04/21/19 08:33 History Source: Patient Exam Limitations: No Limitations - History of Present Illness Initial Comments: 04/21/19 09:08 58 yo male pmh HTN, CHF (last EF 33%, echo > 2 years ago, AICD in place) DM ( controlled), diabetic foot ulcers s/p left 1st and 2nd toes removed, active right diabetic foot ulcer, Legionella PNA presents to the ED for 4 days of fevers, cough, congestion, wheezing, sore throat. Of note, pt states at home he has an old malfunctioning AC unit that is dripping water and smells like mildew. Pt denies recent sick contacts, recent travel, calf tenderness, CP. Past History - Past Medical History Allergies/Adverse Reactions: Allergies Allergy/AdvReac Type Severity Reaction Status Date / Time No Known Allergies Allergy Verified 04/21/19 08:26 Home Medications: Ambulatory Orders Furosemide [Lasix] 40 mg PO DAILY 03/29/18 Insulin Aspart [Novolog] 100 unit SQ [facility] 03/29/18 Insulin Glargine,Hum.rec.anlog [Lantus] 45 unit SQ DAILY 03/29/18 Pregabalin [Lyrica] 100 mg PO BID 03/29/18 Ramipril [Altace] 2.5 mg PO DAILY 03/29/18 Albuterol 2.5/Ipratropium 0.5 [Duoneb -] 1 amp NEB BID #6 amp 04/21/19 Azithromycin [Zithromax 1gm Cristian -] 1 gm PO ONCE #1 packet 04/21/19 Buprenorphine HCl/Naloxone HCl [Suboxone 8 mg-2 mg Sl Tablets] 1 each SL [facility] 04/21/19 Anemia: No Asthma: No Cancer: No Cardiac Disorders: No CVA: No COPD: No CHF: Yes Dementia: No Diabetes: Yes (iddm) GI Disorders: Yes (acid reflux) Disorders: No HTN: Yes Hypercholesterolemia: No Liver Disease: No Seizures: No Thyroid Disease: No - Surgical History Abdominal Surgery: No Appendectomy: No Cardiac Surgery: No Cholecystectomy: No Lung Surgery: No Neurologic Surgery: Yes (spinal fusionx4) Orthopedic Surgery: Yes (right shoulder .right and left acl sx) - Suicide/Smoking/Psychosocial Hx Smoking History: Current every day smoker Have you smoked in the past 12 months: Yes Number of Cigarettes Smoked Daily: 5 Information on smoking cessation initiated: No 'Breaking Loose' booklet given: 03/29/18 Hx Alcohol Use: No Drug/Substance Use Hx: No Substance Use Type: Cocaine Hx Substance Use Treatment: No *Physical Exam - Vital Signs Last Vital Signs Temp Pulse Resp BP Pulse Ox 99 F 72 20 132/85 96 04/21/19 08:26 04/21/19 08:26 04/21/19 08:26 04/21/19 08:26 04/21/19 08:26 ED Treatment Course - LABORATORY CBC & Chemistry Diagram: 04/21/19 09:30 04/21/19 09:30 - RADIOLOGY Radiology Studies Ordered: Category Date Time Status CHEST PA & LAT [RAD] Stat Radiology 04/21/19 09:03 Ordered *DC/Admit/Observation/Transfer Diagnosis at time of Disposition: Upper respiratory infection - Discharge Dispostion Disposition: HOME Condition at time of disposition: Stable Decision to Admit order: No - Referrals Referrals: Sera Tim MD [Primary Care Provider] - - Patient Instructions Printed Discharge Instructions: DI for Acute Bronchitis, DI for Viral Upper Respiratory Infection -- Adult Additional Instructions: Please see your Primary Doctor within the next 48 hours. Use the medication breathing treatments and antibiotics sent to your Pharmacy as prescribed. Take Tylenol or Motrin every 6 hours for fevers. Return to the ER for new or concerning symptoms including but not limited to: difficulty breathing, inability to eat or drink. Thank you - Post Discharge Activity
[2019-04-21 09:42] LABS: BASO % 0.9 % (0-2.0); EOS % 7.7 % (0-4.5); HEMATOCRIT 42.5 % (35.4-49); HEMOGLOBIN 14.2 GM/dL (11.7-16.9); LYMPH % 28.1 % (8-40); MCH 30.1 pg (25.7-33.7); MCHC 33.5 g/dl (32.0-35.9); MEAN CELL VOLUME 89.9 fl (80-96); MEAN PLT VOLUME 9.4 fl (7.5-11.1); MONO % 12.8 % (3.8-10.2); NEUT % 50.5 % (42.8-82.8); RBC 4.73 M/mm3 (4.00-5.60); RDW 14.6 % (11.9-15.9); WHITE BLOOD COUNT 4.9 K/mm3 (4.0-10.0)
[2019-04-21 09:58] LABS: PLATELET COUNT 123 K/MM3 (134-434)
[2019-04-21 10:04] LABS: ALBUMIN 3.3 g/dl (3.4-5.0); ALK PHOS 88 U/L (45-117); ANION GAP 5 MMOL/L (8-16); BILIRUBIN,TOTAL 0.4 mg/dL (0.2-1); BLOOD UREA NITROGEN 11.8 mg/dL (7-18); CALCIUM 8.1 mg/dL (8.5-10.1); CHLORIDE 103 mmol/L (98-107); CO2 31 mmol/L (21-32); CREATININE 1.3 mg/dL (0.55-1.3); GLUCOSE,RANDOM 267 mg/dL (74-106); N-TERMINAL BNP 46.4 pg/ml (5-125); POTASSIUM 4.1 mmol/L (3.5-5.1); SGOT/AST 14 U/L (15-37); SGPT/ALT 20 U/L (13-61); SODIUM 138 mmol/L (136-145); TOT PROT 7.2 g/dl (6.4-8.2)
[2019-04-21] MEDS ORDERED: ALBUTEROL SO4 2.5/IPRATROPIUM 0.5 INH SOL 3 ML VIAL.NEB. NEB ONE ×2 (10:37→10:41)
--- NOTE | 2019-04-21 11:38 | PDOC ---
Documentation entered by Yen Cifuentes SCRIBE, acting as scribe for Christopher Jeter MD. Christopher Jeter MD: This documentation has been prepared by the Vane breaux Brenda, SCRIBE, under my direction and personally reviewed by me in its entirety. I confirm that the documentation accurately reflects all work, treatment, procedures, and medical decision making performed by me. Attending Attestation - Resident Resident Name: Soren Coronado - ED Attending Attestation I have performed the following: I have examined & evaluated the patient, The case was reviewed & discussed with the resident, I agree w/resident's findings & plan, Exceptions are as noted - HPI HPI: 04/21/19 10:45 The patient is a 58 year old male, with a significant PMH of DM, diabetic foot ulcers s/p left 1st and 2nd toes removed, active right diabetic foot ulcers, cardiomyopathy, HTN, CHF (EF 33%) and Legionella PNA who presents to the emergency department with 4 days of a subjective fever, cough, congestion, wheezing and a sore throat. The patient also reports having an older Air Conditioning unit in his home, that is malfunctioning and smells like mildew. The patient denies calf tenderness, chest pain, headache and dizziness. Denies recent travel and sick contacts. Denies nausea, vomiting, diarrhea and constipation. Allergies: NKA Past surgical history: Neuro: spinal fusionx4, Ortho: right shoulder .right and left acl sx Social history: Current everyday smoker, about 5 cigarettes a day. PCP: Dr. Sera Tim - Physicial Exam PE: 04/21/19 11:15 GENERAL: The patient is awake, alert, and fully oriented, Nontoxic - in no acute distress. HEAD: Normocephalic, atraumatic. EYES: extraocular movements intact, sclera anicteric, conjunctiva clear. ENT: Normal voice, Moist mucous membranes. NECK: Normal range of motion, supple without lymphadenopathy, JVD, or masses. LUNGS: +rhonchi bilaterally, no wheezing, no acute respiratory distress HEART: Regular rate and rhythm, normal S1 and S2 without murmur, rub or gallop. ABDOMEN: Soft, nontender, normoactive bowel sounds. No guarding, no rebound. No masses. EXTREMITIES: Normal range of motion, no edema. NEUROLOGICAL: No facial asymmetry, Normal speech, normal gait. PSYCH: Normal mood, normal affect. SKIN: Warm, Dry, normal turgor, no rashes or lesions noted. - Medical Decision Making 04/21/19 10:35 58y M hx of htn, chf (EF 33%), w AICD, DM, hx chronic ulcer (Being managed by wound care) presents with 4 days of coughing, chest/nasal congestion, subjective fevers, cp/upper abd pain only when coughing. no tapia, hemoptysis, leg swelling or calf pain suspect viral syndrome will ck cxr to r/o pna will ck basic labs pt is a chronic smoker - suspect possible mild copd/reactive airway from viral syndrome will give neb to see if it helps 04/21/19 11:35 lbas reviewed and neg cxr wo acute findings will dc with a zpack return precautions were discussed I discussed the physical exam findings, ancillary test results and final diagnoses with the patient. I answered all of the patient's questions. The patient was satisfied with the care received and felt comfortable with the discharge plan and treatment plan. The patient will call their primary care physician within 24 hours to arrange follow-up and will return to the Emergency Department with any new, persistent or worsening symptoms. Heart Score/ECG Review - ECG Impressions Comment:: 04/21/19 13:11 Twelve-lead EKG was performed and reviewed by me. There is normal sinus rhythm with a normal rate. rate of 68 incomplete right bundle branch block Left anterior fascicular block No ST wave changes suggestive of acute ischemia
--- NOTE | 2019-04-21 16:02 | EKG ---
Test Reason : Blood Pressure : / mmHG Vent. Rate : 068 BPM Atrial Rate : 068 BPM P-R Int : 190 ms QRS Dur : 108 ms QT Int : 446 ms P-R-T Axes : 057 -64 074 degrees QTc Int : 474 ms SINUS RHYTHM WITH PREMATURE ATRIAL COMPLEXES IN A PATTERN OF BIGEMINY POSSIBLE LEFT ATRIAL ENLARGEMENT INCOMPLETE RIGHT BUNDLE BRANCH BLOCK LEFT ANTERIOR FASCICULAR BLOCK ABNORMAL ECG WHEN COMPARED WITH ECG OF 06-APR-2018 19:53, PREMATURE ATRIAL COMPLEXES ARE NOW PRESENT INCOMPLETE RIGHT BUNDLE BRANCH BLOCK IS NOW PRESENT Confirmed by NAHID SERNA, HECTOR ([id number]) on 04/21/2019 4:02:10 PM Referred By: Confirmed By:HECTOR WHITFIELD MD
== END 2019-04-21 12:17 | disposition home or self-care (01) ==
LOC: JER 08:11
PROC: 3E0F7GC Introduction of Other Therapeutic Substance into Respiratory Tract, Via Natural or Artificial Opening (ICD-10-PCS; principal; 2019-04-21)
DX: J06.9 Acute upper respiratory infection, unspecified (principal); I11.0 Hypertensive heart disease with heart failure; I50.9 Heart failure, unspecified; E11.621 Type 2 diabetes mellitus with foot ulcer; Z79.4 Long term (current) use of insulin; Z95.810 Presence of automatic (implantable) cardiac defibrillator; Z89.422 Acquired absence of other left toe(s); K21.9 Gastro-esophageal reflux disease without esophagitis; Z87.09 Personal history of other diseases of the respiratory system
CPT/HCPCS: 36415; 71046-TC-FY; 80053; 82550; 82553; 83880; 84484; 85025; 86713; 87070; 87804; 87880; 93005; 93010; 94640; 99284-25

== ENCOUNTER 2019-07-01 19:54 | Emergency (ER) | payer OTHER ==
[2019-07-01 20:22] VITALS: BMI 41.8
--- NOTE | 2019-07-01 21:36 | PDOC ---
History of Present Illness - General History Source: Patient Exam Limitations: No Limitations - History of Present Illness Initial Comments: 07/01/19 21:36 HPI: 58 yo smoker male pmh HTN, CHF (last EF 33%, echo > 2 years ago, AICD in place) DM (controlled), diabetic foot ulcers s/p left 1st and 2nd toes removed, substance use disorder, Legionella PNA presents to the ED for 1 month of cough, congestion acutely worsening over past week. Cough productive of green/yellow sputum has worsened over the past week and has impaired pt ability to sleep. He also endorses night sweats and chest tightness at the current time and loss of breath while speaking but is able to walk normal distances. Denies fevers / chills. Reports he is compliant with all his home medication and has been taking his water pill. 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 At home he has been taking mucinex for his cough and suboxone for pain - he reports pain from his multiple spinal fusions and revisions that worsened about 3 months ago after riding an amusement park ride. Pt denies recent sick contacts, recent travel, calf tenderness, CP. All: NKDA Meds: Per chart PMH: as above PSH: multiple spinal surgeries SHx: extermination supervisor smoker, currently smokes cigars sporadically <Alphonso Bonilla - Last Filed: 07/01/19 23:39> <Ivis Colvin - Last Filed: 07/02/19 00:08> - General Chief Complaint: Respiratory Stated Complaint: BACK PAIN Past History - Travel Traveled outside of the country in the last 30 days: No Close contact w/someone who was outside of country & ill: No - Past Medical History Anemia: No Asthma: No Cancer: No Cardiac Disorders: No CVA: No COPD: No CHF: Yes Dementia: No Diabetes: Yes (iddm) GI Disorders: Yes (acid reflux) Disorders: No HTN: Yes Hypercholesterolemia: No Liver Disease: No Seizures: No Thyroid Disease: No - Surgical History Abdominal Surgery: No Appendectomy: No Cardiac Surgery: No Cholecystectomy: No Lung Surgery: No Neurologic Surgery: Yes (spinal fusionx4) Orthopedic Surgery: Yes (right shoulder .right and left acl sx) - Suicide/Smoking/Psychosocial Hx Smoking History: Current every day smoker Have you smoked in the past 12 months: Yes Number of Cigarettes Smoked Daily: 3 Information on smoking cessation initiated: No 'Breaking Loose' booklet given: 03/29/18 Hx Alcohol Use: No Drug/Substance Use Hx: Yes (COCCAINE) Substance Use Type: Cocaine Hx Substance Use Treatment: No <Alphonso Bonilla - Last Filed: 07/01/19 23:39> <Ivis Colvin - Last Filed: 07/02/19 00:08> - Past Medical History Allergies/Adverse Reactions: Allergies Allergy/AdvReac Type Severity Reaction Status Date / Time No Known Allergies Allergy Verified 04/21/19 08:26 Home Medications: Ambulatory Orders Furosemide [Lasix] 40 mg PO DAILY 03/29/18 Insulin Aspart [Novolog] 16 unit SQ DAILY 03/29/18 Insulin Glargine,Hum.rec.anlog [Lantus] 44 unit SQ DAILY 03/29/18 Enalapril Maleate 2.5 mg PO DAILY 07/01/19 Doxycycline Hyclate [Vibramycin] 100 mg PO BID #14 capsule 07/02/19 Review of Systems - Review of Systems Able to Perform ROS?: Yes Is the patient limited [place] proficient: Yes Constitutional: Yes: Night Sweats. No: Chills, Fever, Weakness HEENTM: Yes: Nose Congestion. No: Recent change in vision, Throat Pain, Throat Swelling Respiratory: Yes: Cough, Shortness of Breath, Wheezing, Productive cough Cardiac (ROS): Yes: Chest Tightness. No: Chest Pain, Irregular Heart Rate, Lightheadedness, Palpitations, Syncope ABD/GI: Yes: Diarrhea (one episode today). No: Blood Streaked Bowels, Constipated, Nausea, Poor Appetite, Poor Fluid Intake, Vomiting, Tarry Stools : No: Burning, Dysuria, Frequency, Pain Musculoskeletal: Yes: Back Pain, Muscle Pain Integumentary: No: Bruising, Erythema, Pruritus, Rash Neurological: No: Headache, Numbness, Tingling Psychiatric: Yes: Sleep Pattern Change. No: Stressors, Emotional Problems, Mood Swings, Change in Appetite Endocrine: No: Excessive Sweating, Flushing, Change in Weight Hematologic/Lymphatic: No: Anemia, Blood Clots, Easy Bruising All Other Systems: Reviewed and Negative <Alphonso Bonilla - Last Filed: 07/01/19 23:39> *Physical Exam - Vital Signs Last Vital Signs Temp Pulse Resp BP Pulse Ox 99 F 102 H 20 127/88 98 07/01/19 20:19 07/01/19 20:19 07/01/19 20:19 07/01/19 20:19 07/01/19 20:19 - Physical Exam Comments: 07/01/19 22:18 Vitals reviewed, notable for mild tachycardia, normal BP, 98% Sat on 1L NC Gen: WDWN, NAD, obese male, sitting up in bed CV: RRR, nl s1/s2, no murmurs appreciated Pulm: CTABL, occasionally short of breath during exam, coughing up mucus, no focal region of rales / rhonchi, some wheezes in right lung base Abd: Obese, soft, nontender Ext: WWP, some edema (reportedly baseline) in bilateral shins Neuro: alert and oriented, CN grossly intact, MAEE <Alphonso Bonilla - Last Filed: 07/01/19 23:39> - Vital Signs Last Vital Signs Temp Pulse Resp BP Pulse Ox 99 F 90 20 128/80 100 07/01/19 20:19 07/01/19 23:42 07/01/19 23:42 07/01/19 23:42 07/01/19 23:42 <Ivis Colvin - Last Filed: 07/02/19 00:08> ED Treatment Course - LABORATORY CBC & Chemistry Diagram: 07/01/19 23:04 07/01/19 23:04 <Alphonso Bonilla - Last Filed: 07/01/19 23:39> - LABORATORY CBC & Chemistry Diagram: 07/01/19 23:04 07/01/19 23:04 - ADDITIONAL ORDERS Additional order review: Laboratory Results 07/01/19 07/01/19 23:04 23:04 PT with INR 12.20 INR 1.03 Sodium 140 Potassium 3.9 Chloride 106 Carbon Dioxide 28 Anion Gap 6 L BUN 14.4 Creatinine 1.3 Est GFR (CKD-EPI)AfAm 70.69 Est GFR (CKD-EPI)NonAf 60.99 Random Glucose 99 Calcium 8.9 Total Bilirubin 1.0 AST 35 ALT 48 Alkaline Phosphatase 83 Creatine Kinase 92 Troponin I 0.02 B-Natriuretic Peptide 338.8 H Total Protein 7.3 Albumin 3.6 07/01/19 23:04 RBC 5.68 H MCV 90.0 MCHC 32.9 RDW 15.6 MPV 10.2 Neutrophils % 62.0 D Lymphocytes % 23.7 Monocytes % 8.4 Eosinophils % 4.2 Basophils % 1.7 - RADIOLOGY Radiology Studies Ordered: Category Date Time Status CHEST PA & LAT [RAD] Stat Radiology 07/01/19 22:04 Taken - Medications Given in the ED: ED Medications Discontinued Medications Generic Name Dose Route Start Last Admin Trade Name Kristel PRN Reason Stop Dose Admin Albuterol/Ipratropium 1 amp 07/01/19 23:38 07/01/19 23:43 Duoneb - NEB 07/01/19 23:39 1 amp ONCE ONE Administration Ketorolac Tromethamine 30 mg 07/01/19 22:05 07/01/19 23:00 Toradol Injection - IVPUSH 07/01/19 22:06 30 mg ONCE ONE Administration Lidocaine 1 patch 07/01/19 22:05 07/01/19 23:00 Lidoderm Patch - TP 07/01/19 22:06 1 patch ONCE ONE Administration Sodium Chloride 250 ml 07/01/19 22:05 07/01/19 22:00 Normal Saline - IV 07/01/19 22:06 250 ml ONCE ONE Administration <Ivis Colvin - Last Filed: 07/02/19 00:08> Medical Decision Making - Medical Decision Making 07/01/19 22:22 58 yo male pmh HTN, CHF (last EF 33%, echo > 2 years ago, AICD in place) DM ( controlled), diabetic foot ulcers s/p left 1st and 2nd toes removed, substance use disorder, Legionella PNA presents to the ED for 1 month of cough, congestion acutely worsening over the past week. Viral infection vs bronchitis, less likely PE given no recent immobilizations, ACS / dissection, pneumothorax. -CBC, CMP, CP, BNP, PT/INR -EKG, CXR PA & Lat -Lidoderm patch, Toradol, IVF 07/01/19 23:08 -EKG with NSR, left axis deviation, prolonged QT, left anterior fascicular block : prolonged QT is new since April 2019 07/01/19 23:40 -Patient pain improving with lidoderm patch -Wheezes worse on re-evaluation, 1 amp [place] ordered -Labs pending <Alphonso Bonilla - Last Filed: 07/01/19 23:39> *DC/Admit/Observation/Transfer <Alphonso Bonilla - Last Filed: 07/01/19 23:39> - Discharge Dispostion Decision to Admit order: No <Ivis Colvin - Last Filed: 07/02/19 00:08> Diagnosis at time of Disposition: Atypical pneumonia - Discharge Dispostion Disposition: HOME Condition at time of disposition: Improved - Prescriptions Prescriptions: Doxycycline Hyclate [Vibramycin] 100 mg PO BID #14 capsule - Patient Instructions Printed Discharge Instructions: DI for Atypical Pneumonia
[2019-07-01] MEDS ORDERED: LIDOCAINE PATCH REMOVAL MC SCH (22:00)
--- NOTE | 2019-07-01 22:03 | PDOC ---
Attending Attestation - Resident Resident Name: Alphonso Bonilla - ED Attending Attestation I have performed the following: I have examined & evaluated the patient, The case was reviewed & discussed with the resident, I agree w/resident's findings & plan - HPI HPI: 07/02/19 02:39 Pt comes with 2 complaints: back pain and SOB/cough 58 yo smoker male pmh HTN, CHF (last EF 33%, echo > 2 years ago, AICD in place) DM (controlled), diabetic foot ulcers s/p left 1st and 2nd toes removed, hx of substance use disorder, Legionella PNA presents to the ED for 1 month of cough, congestion acutely worsening over past week. Cough productive of green/yellow sputum has worsened over the past week and has impaired pt ability to sleep. He also endorses night sweats and chest tightness at the current time and loss of breath while speaking but is able to walk normal distances. Denies fevers / chills. Reports he is compliant with all his home medication and has been taking his water pill. 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 At home he has been taking mucinex for his cough and suboxone for pain - he reports pain from his multiple spinal fusions and revisions that worsened about 3 months ago after riding an amusement park ride. Pt denies recent sick contacts, recent travel, calf tenderness, CP. - Physicial Exam PE: 07/02/19 02:42 Agree with resident exam. Pt has wheezing bilaterally; coarse breath sounds Afebrile. Heart RRR Paacemaker in his left chest. Abd soft NT ND No pitting edema of legs 07/02/19 02:43 - Medical Decision Making 07/02/19 02:42 Pt has normal labs and normal exam; pt is able to ambulate with ease after receiving lidoderm patch; he feels better after albuterol treatment, and he is ready to go home with abx for a pneumonia., we opted to give him doxy BID rather than zithromax, only because he has QT prolongation and the former will not affect the QT 07/02/19 02:44 Stable to go home. First dose of abx given in the ER
[2019-07-01] MEDS ORDERED: SODIUM CHLORIDE 0.9% 500 ML INFUS.BAG IV ONE (22:05)
[2019-07-01] MEDS ORDERED: LIDOCAINE 5% TOPICAL PATCH TP ONE (22:05)
[2019-07-01] MEDS ORDERED: KETOROLAC TROMETHAMINE 30 MG/1 ML VIAL IVPUSH ONE (22:05)
[2019-07-01] MEDS ORDERED: KETOROLAC TROMETHAMINE 30 MG/1 ML VIAL ONE (22:45)
[2019-07-01] MEDS ORDERED: LIDOCAINE 5% TOPICAL PATCH ONE (22:45)
[2019-07-01 23:23] LABS: BASO % 1.7 % (0-2.0); EOS % 4.2 % (0-4.5); HEMATOCRIT 51.1 % (35.4-49); HEMOGLOBIN 16.8 GM/dL (11.7-16.9); LYMPH % 23.7 % (8-40); MCH 29.6 pg (25.7-33.7); MCHC 32.9 g/dl (32.0-35.9); MEAN PLT VOLUME 10.2 fl (7.5-11.1); MONO % 8.4 % (3.8-10.2); PLATELET COUNT 155 K/MM3 (134-434); RBC 5.68 M/mm3 (4.00-5.60); RDW 15.6 % (11.9-15.9); WHITE BLOOD COUNT 8.9 K/mm3 (4.0-10.0)
[2019-07-01 23:37] LABS: INR 1.03 (0.83-1.09); PROTHROMBIN TIME (PATIENT) 12.2 SEC (9.7-13.0)
[2019-07-01] MEDS ORDERED: ALBUTEROL SO4 2.5/IPRATROPIUM 0.5 INH SOL 3 ML VIAL.NEB. NEB ONE ×2 (23:38→23:44)
[2019-07-01 23:43] VITALS: BP 128/80
[2019-07-01 23:55] LABS: ALBUMIN 3.6 g/dl (3.4-5.0); BLOOD UREA NITROGEN 14.4 mg/dL (7-18); CALCIUM 8.9 mg/dL (8.5-10.1); CREATININE 1.3 mg/dL (0.55-1.3); TOT PROT 7.3 g/dl (6.4-8.2)
[2019-07-01 23:56] LABS: N-TERMINAL BNP 338.8 pg/ml (5-125); POTASSIUM 3.9 mmol/L (3.5-5.1)
[2019-07-02] MEDS ORDERED: DOXYCYCLINE HYCLATE 100 MG CAPSULE PO ONE ×2 (00:07→01:00)
[2019-07-02 01:10] VITALS: PULSE 86; TEMP 98.6
--- NOTE | 2019-07-02 10:28 | EKG ---
Test Reason : Blood Pressure : / mmHG Vent. Rate : 090 BPM Atrial Rate : 090 BPM P-R Int : 158 ms QRS Dur : 104 ms QT Int : 408 ms P-R-T Axes : 061 -66 086 degrees QTc Int : 499 ms NORMAL SINUS RHYTHM POSSIBLE LEFT ATRIAL ENLARGEMENT LEFT ANTERIOR FASCICULAR BLOCK PROLONGED QT ABNORMAL ECG WHEN COMPARED WITH ECG OF 21-APR-2019 09:10, PREMATURE ATRIAL COMPLEXES ARE NO LONGER PRESENT INCOMPLETE RIGHT BUNDLE BRANCH BLOCK IS NO LONGER PRESENT Confirmed by AKSHAT HODGSON MD ([id number]) on 07/02/2019 10:27:46 AM Referred By: Confirmed By:AKSHAT HODGSON MD
== END 2019-07-02 01:12 | disposition home or self-care (01) ==
LOC: JER 19:54
PROC: 3E0F7GC Introduction of Other Therapeutic Substance into Respiratory Tract, Via Natural or Artificial Opening (ICD-10-PCS; principal; 2019-07-01)
PROC: 3E0333Z Introduction of Anti-inflammatory into Peripheral Vein, Percutaneous Approach (ICD-10-PCS; 2019-07-01)
PROC: 3E0337Z Introduction of Electrolytic and Water Balance Substance into Peripheral Vein, Percutaneous Approach (ICD-10-PCS; 2019-07-01)
DX: J18.9 Pneumonia, unspecified organism (principal); I11.0 Hypertensive heart disease with heart failure; I50.9 Heart failure, unspecified; E11.621 Type 2 diabetes mellitus with foot ulcer; Z79.4 Long term (current) use of insulin; K21.9 Gastro-esophageal reflux disease without esophagitis; Z89.422 Acquired absence of other left toe(s); Z87.01 Personal history of pneumonia (recurrent); F17.210 Nicotine dependence, cigarettes, uncomplicated
CPT/HCPCS: 36415; 71046-TC-FY; 80053; 82550; 83880; 84484; 85025; 85610; 93005; 93010; 94640; 96374; 99285-25

== ENCOUNTER 2019-09-03 11:15 | Emergency (ER) | payer OTHER ==
[2019-09-03 11:27] VITALS: BP 120/72; PULSE 92; TEMP 98.4; BMI 43.0
--- NOTE | 2019-09-03 12:53 | PDOC ---
History of Present Illness - General Chief Complaint: Pain Stated Complaint: WOUND Time Seen by Provider: 09/03/19 11:41 - History of Present Illness Initial Comments: 09/03/19 12:51 59-year-old male with a past medical history of diabetes and congestive heart failure presents for evaluation of a painful area on his right flank for the last 2 weeks without systemic symptoms. Past History - Past Medical History Allergies/Adverse Reactions: Allergies Allergy/AdvReac Type Severity Reaction Status Date / Time No Known Allergies Allergy Verified 09/03/19 11:27 Home Medications: Ambulatory Orders Furosemide [Lasix] 40 mg PO DAILY 03/29/18 Insulin Aspart [Novolog] 16 unit SQ DAILY 03/29/18 Insulin Glargine,Hum.rec.anlog [Lantus] 44 unit SQ DAILY 03/29/18 Enalapril Maleate 2.5 mg PO DAILY 07/01/19 Doxycycline Hyclate [Vibramycin] 100 mg PO BID #14 capsule 07/02/19 Doxycycline Hyclate [Vibramycin] 100 mg PO BID #14 capsule 07/02/19 Lidocaine 5% Patch [Lidoderm Patch -] 1 patch TP DAILY #30 patch 07/02/19 Cephalexin [Keflex] 500 mg PO QID #40 capsule 09/03/19 Sulfamethoxazole/Trimethoprim [Bactrim Ds -] 1 tab PO BID #14 tablet 09/03/19 Anemia: No Asthma: No Cancer: No Cardiac Disorders: No CVA: No COPD: No CHF: Yes Dementia: No Diabetes: Yes (iddm) GI Disorders: Yes (acid reflux) Disorders: No HTN: Yes Hypercholesterolemia: No Liver Disease: No Seizures: No Thyroid Disease: No - Surgical History Abdominal Surgery: No Appendectomy: No Cardiac Surgery: No Cholecystectomy: No Lung Surgery: No Neurologic Surgery: Yes (spinal fusionx4) Orthopedic Surgery: Yes (right shoulder .right and left acl sx) - Psycho Social/Smoking Cessation Hx Smoking History: Never smoked Have you smoked in the past 12 months: Yes Number of Cigarettes Smoked Daily: 3 'Breaking Loose' booklet given: 03/29/18 Hx Alcohol Use: No Drug/Substance Use Hx: Yes (COCCAINE) Substance Use Type: Cocaine Hx Substance Use Treatment: No Review of Systems - Review of Systems Constitutional: No: Fever Integumentary: Yes: See HPI *Physical Exam - Vital Signs Last Vital Signs Temp Pulse Resp BP Pulse Ox 98.4 F 92 H 18 120/72 99 09/03/19 11:24 09/03/19 11:24 09/03/19 11:24 09/03/19 11:24 09/03/19 11:24 - Physical Exam Comments: 09/03/19 12:51 There is a warm mildly erythemic indurated area about 6 cm in circumference on the right flank. There is an open excoriated ulcerated area in the center of the lesion without drainage this area is clean and dry. There is no fluctuance there is no pain away from the area of the lesion. Medical Decision Making - Medical Decision Making 09/03/19 12:52 This is either a forming or resolving abscess on the right flank. Recommended warm compresses placed on a course of Bactrim and Keflex will have patient follow-up with general surgery Discharge - Discharge Information Problems reviewed: Yes Clinical Impression/Diagnosis: Cellulitis Condition: Stable Disposition: HOME - Admission No - Additional Discharge Information Prescriptions: Cephalexin [Keflex] 500 mg PO QID #40 capsule Sulfamethoxazole/Trimethoprim [Bactrim Ds -] 1 tab PO BID #14 tablet - Follow up/Referral Referrals: Sera Tim MD [Primary Care Provider] - Wero Ragsdale MD [Staff Physician] - - Patient Discharge Instructions Additional Instructions: Warm compresses 5-6 times a day. Tylenol as directed for pain control. Avoid anti-inflammatories such as Advil Motrin Aleve and ibuprofen. Please take the antibiotics as directed. Return to the emergency room for worsening symptoms. Without fail, please follow-up with general surgery in 2 to 3 days for further evaluation and treatment options. - Post Discharge Activity
== END 2019-09-03 13:05 | disposition home or self-care (01) ==
LOC: JERFT 11:15
DX: L03.312 Cellulitis of back [any part except buttock and flank] (principal); I11.0 Hypertensive heart disease with heart failure; I50.9 Heart failure, unspecified; E11.9 Type 2 diabetes mellitus without complications; Z79.4 Long term (current) use of insulin; K21.9 Gastro-esophageal reflux disease without esophagitis
CPT/HCPCS: 99282-25

== ENCOUNTER 2020-09-15 10:44 | Inpatient (IN) | payer OTHER ==
[2020-09-15 11:41] LABS: VENOUS BASE EXCESS 3.5 mmol/L (-2-2); VENOUS O2 SATURATION 35.9 % (70-80); VENOUS PCO2 66.3 mmHg (38-52); VENOUS PH 7.305 (7.310-7.410)
[2020-09-15 11:47] LABS: BASO % 0.8 % (0-2.0); EOS % 5.5 % (0-4.5); HEMATOCRIT 47.7 % (35.4-49); HEMOGLOBIN 15.6 GM/dL (11.7-16.9); LYMPH % 27.6 % (8-40); MCH 30.2 pg (25.7-33.7); MCHC 32.6 g/dl (32.0-35.9); MEAN CELL VOLUME 92.5 fl (80-96); MEAN PLT VOLUME 10.2 fl (7.5-11.1); MONO % 5.1 % (3.8-10.2); PLATELET COUNT 131 K/MM3 (134-434); RBC 5.16 M/mm3 (4.00-5.60); WHITE BLOOD COUNT 6.6 K/mm3 (4.0-10.0)
[2020-09-15] MEDS ORDERED: ALBUTEROL SO4 HFA INHALER IH ONE ×2 (11:47→12:00)
[2020-09-15 12:16] LABS: CHLORIDE 101 mmol/L (98-107); POTASSIUM 4.6 mmol/L (3.5-5.1); SODIUM 137 mmol/L (136-145)
[2020-09-15 12:17] LABS: N-TERMINAL BNP 253.6 pg/ml (5-125)
[2020-09-15 12:19] LABS: CALCIUM 8.4 mg/dL (8.5-10.1)
[2020-09-15 12:20] LABS: ALBUMIN 3.2 g/dl (3.4-5.0); ANION GAP 3 MMOL/L (8-16); CO2 32 mmol/L (21-32)
[2020-09-15 12:22] LABS: CREATININE 1.7 mg/dL (0.55-1.3); SGPT/ALT 18 U/L (13-61)
[2020-09-15 12:23] LABS: SGOT/AST 8 U/L (15-37)
[2020-09-15 12:24] LABS: BILIRUBIN,TOTAL 0.7 mg/dL (0.2-1); TOT PROT 6.6 g/dl (6.4-8.2)
[2020-09-15 12:25] LABS: ALK PHOS 93 U/L (45-117)
[2020-09-15 12:31] LABS: INR 0.91 (0.83-1.09); PROTHROMBIN TIME (PATIENT) 11.2 SEC (9.7-13.0)
[2020-09-15 12:33] LABS: ACTIVATED PTT 32.6 SECONDS (25.2-36.5)
[2020-09-15 12:36] LABS: GLUCOSE,RANDOM 456 mg/dL (74-106)
[2020-09-15] MEDS ORDERED: Insulin (LOG) Aspart 100 UNITS/ML VIAL SQ ONE (12:44)
[2020-09-15] MEDS ORDERED: SODIUM CHLORIDE 0.9% 500 ML INFUS.BAG IV ONE (14:40)
[2020-09-15] MEDS ORDERED: ONDANSETRON 4 MG/2 ML VIAL IVPUSH ONE (14:40)
[2020-09-15] MEDS ORDERED: ONDANSETRON 4 MG/2 ML VIAL ONE (15:29)
[2020-09-15 19:38] LABS: CHLORIDE 104 mmol/L (98-107); POTASSIUM 4.2 mmol/L (3.5-5.1); SODIUM 140 mmol/L (136-145)
[2020-09-15 19:40] LABS: ALBUMIN 3.3 g/dl (3.4-5.0); ANION GAP 6 MMOL/L (8-16); BLOOD UREA NITROGEN 13.2 mg/dL (7-18); CALCIUM 8.1 mg/dL (8.5-10.1); CO2 30 mmol/L (21-32); GLUCOSE,RANDOM 238 mg/dL (74-106)
[2020-09-15 19:43] LABS: CREATININE 1.4 mg/dL (0.55-1.3)
[2020-09-15 19:44] LABS: SGOT/AST 10 U/L (15-37)
[2020-09-15 19:45] LABS: BILIRUBIN,TOTAL 0.8 mg/dL (0.2-1); TOT PROT 6.8 g/dl (6.4-8.2)
[2020-09-15 19:46] LABS: ALK PHOS 86 U/L (45-117)
[2020-09-15 19:47] LABS: SGPT/ALT 17 U/L (13-61)
[2020-09-15 19:52] LABS: EPI CELLS 15 /uL (0-25.1); HYALINE CASTS 1 /uL (0-3.1); URINE APPEARANCE CLEAR; URINE BACTERIA 133 /uL (0-1359); URINE BILIRUBIN NEGATIVE (NEGATIVE); URINE COLOR YELLOW; URINE GLUCOSE (UA) 3+ (NEGATIVE); URINE KETONE NEGATIVE (NEGATIVE); URINE LEUK ESTERASE NEGATIVE (NEGATIVE); URINE NITRITE NEGATIVE (NEGATIVE); URINE PROTEIN 2+ (NEGATIVE); URINE RBC 6 /uL (0-23.9); URINE WBC 12 /uL (0-25.8)
[2020-09-15] MEDS ORDERED: MAGNESIUM SULF 50% (8.12 MEQ/2 ML-1 GM VIAL) IVPB ONE (19:56)
[2020-09-15] MEDS ORDERED: MAGNESIUM SULFATE IN WATER 2 GM/50 ML IVPB IVPB ONE (20:05)
[2020-09-15] MEDS ORDERED: FUROSEMIDE 40 MG/4 ML INJECTABLE VIAL IVPUSH SCH (20:15)
[2020-09-15] MEDS ORDERED: VANCOMYCIN HCL 1,500 MG in DEXTROSE 5%-WATER - 250 ML IVPB SCH ×2 (20:15→20:30)
[2020-09-15] MEDS ORDERED: FUROSEMIDE 40 MG/4 ML INJECTABLE VIAL ONE (20:27)
[2020-09-15] MEDS ORDERED: ALBUTEROL SO4 HFA INHALER IH PRN (20:51)
[2020-09-15] MEDS ORDERED: PIPERACILLIN/TAZOB 3.375 GM 3.375 GM in DEXTROSE 5%-WATER - 50 ML IVPB SCH (21:00)
[2020-09-15] MEDS ORDERED: DEXTROSE 5%-WATER - 50 ML IVPB ONE (22:11)
[2020-09-15] MEDS ORDERED: PIPERACILLIN/TAZOBACTAM 3.375 GM VIAL IVPB ONE (22:11)
[2020-09-15] MEDS: PIPERACILLIN/TAZOB 3.375 GM 3.375 GM in DEXTROSE 5%-WATER - 50 ML IVPB SCH (22:45)
[2020-09-15] MEDS: HEPARIN NA (PORCINE) 5,000 UNITS/ML 1ML VIAL SQ SCH (22:47)
[2020-09-15] MEDS: VANCOMYCIN HCL 1,500 MG in DEXTROSE 5%-WATER - 500 ML IVPB SCH (23:10)
[2020-09-16] MEDS ORDERED: PIPERACILLIN/TAZOBACTAM 3.375 GM VIAL IVPB ONE ×2 (01:55→08:09)
[2020-09-16] MEDS ORDERED: DEXTROSE 5%-WATER - 50 ML IVPB ONE ×2 (01:55→08:10)
[2020-09-16] MEDS: PIPERACILLIN/TAZOB 3.375 GM 3.375 GM in DEXTROSE 5%-WATER - 50 ML IVPB SCH ×6 (02:12→15:28)
[2020-09-16 02:36] VITALS: BMI 44.1
[2020-09-16] MEDS: HEPARIN NA (PORCINE) 5,000 UNITS/ML 1ML VIAL SQ SCH ×3 (05:53→21:15)
[2020-09-16] MEDS: INSULIN SLIDING SCALE (NOVOLOG) 1 VIAL SQ SCH ×4 (06:30→21:15)
[2020-09-16 07:22] LABS: BASO % 0.6 % (0-2.0); EOS % 3.8 % (0-4.5); HEMATOCRIT 47.4 % (35.4-49); HEMOGLOBIN 15.3 GM/dL (11.7-16.9); LYMPH % 23.6 % (8-40); MCH 29.5 pg (25.7-33.7); MCHC 32.2 g/dl (32.0-35.9); MEAN CELL VOLUME 91.5 fl (80-96); MONO % 5.8 % (3.8-10.2); NEUT % 66.2 % (42.8-82.8); PLATELET COUNT 131 K/MM3 (134-434); RBC 5.18 M/mm3 (4.00-5.60); WHITE BLOOD COUNT 6.8 K/mm3 (4.0-10.0)
[2020-09-16 07:36] LABS: POTASSIUM 4.2 mmol/L (3.5-5.1)
[2020-09-16 07:51] LABS: ALBUMIN 3.2 g/dl (3.4-5.0); BLOOD UREA NITROGEN 14.3 mg/dL (7-18); CALCIUM 8.2 mg/dL (8.5-10.1); MAGNESIUM 2.1 mg/dL (1.8-2.4)
[2020-09-16 07:54] LABS: CREATININE 1.5 mg/dL (0.55-1.3); PHOSPHOROUS 3.2 mg/dL (2.5-4.9)
[2020-09-16 07:55] LABS: TOT PROT 6.8 g/dl (6.4-8.2)
[2020-09-16] MEDS ORDERED: FLU VACCINE (FLULAVAL) PF 60 MCG/0.5 ML SYRINGE 2020-2021 IM ONE (10:00)
[2020-09-16] MEDS: ASPIRIN 81 MG CHEWABLE TABLETS PO SCH (10:02)
[2020-09-16] MEDS: INSULIN (LEVEMIR) 100 UNITS/ML UNITS SQ SCH ×2 (10:11→21:15)
[2020-09-16 13:58] LABS: METHADONE, UR NEGATIVE ng/ml (CUTOFF=300)
[2020-09-16 14:00] LABS: OPIATES, URI NEGATIVE ng/ml (CUTOFF=300); PHENCYCLIDINE,URINE NEGATIVE ng/ml (CUTOFF=25); URINE BARBITURATES NEGATIVE ng/ml (CUTOFF=200); URINE BENZODIAZEPINES NEGATIVE ng/ml (CUTOFF=200)
[2020-09-16 14:01] LABS: URINE AMPHETAMINES NEGATIVE ng/ml (CUTOFF=500)
[2020-09-16 14:09] LABS: COCAINE, UR POSITIVE ng/ml (CUTOFF=300)
[2020-09-16] MEDS: VANCOMYCIN HCL 1,500 MG in DEXTROSE 5%-WATER - 500 ML IVPB SCH (14:57)
[2020-09-16] MEDS: VANCOMYCIN HCL 1,500 MG in DEXTROSE 5%-WATER - 250 ML IVPB SCH (15:26)
[2020-09-16] MEDS: ACETAMINOPHEN 500 MG TABLET (FP) PO PRN (17:43)
[2020-09-16] MEDS: traMADol HCL 50 MG TABLET PO SCH (21:16)
[2020-09-17] MEDS: INSULIN (LEVEMIR) 100 UNITS/ML UNITS SQ SCH ×2 (06:38→22:09)
[2020-09-17] MEDS: HEPARIN NA (PORCINE) 5,000 UNITS/ML 1ML VIAL SQ SCH ×3 (06:38→20:59)
[2020-09-17] MEDS: INSULIN SLIDING SCALE (NOVOLOG) 1 VIAL SQ SCH ×4 (06:38→22:09)
[2020-09-17] MEDS: ASPIRIN 81 MG CHEWABLE TABLETS PO SCH (10:18)
[2020-09-17] MEDS: traMADol HCL 50 MG TABLET PO SCH ×2 (10:19→21:00)
[2020-09-17] MEDS: ACETAMINOPHEN 500 MG TABLET (FP) PO PRN (16:23)
[2020-09-18] MEDS: HEPARIN NA (PORCINE) 5,000 UNITS/ML 1ML VIAL SQ SCH (06:33)
[2020-09-18] MEDS: INSULIN SLIDING SCALE (NOVOLOG) 1 VIAL SQ SCH ×2 (06:33→11:57)
[2020-09-18] MEDS: INSULIN (LEVEMIR) 100 UNITS/ML UNITS SQ SCH (06:33)
[2020-09-18] MEDS: ASPIRIN 81 MG CHEWABLE TABLETS PO SCH (09:36)
[2020-09-18] MEDS: traMADol HCL 50 MG TABLET PO SCH (09:37)
[2020-09-18 09:42] VITALS: BP 159/79; PULSE 74
[2020-09-18] MEDS ORDERED: FUROSEMIDE 40 MG TABLET (FP) PO SCH (10:00)
[2020-09-18 11:17] VITALS: TEMP 98.1
[2020-09-18] MEDS: ACETAMINOPHEN 500 MG TABLET (FP) PO PRN (12:50)
== END 2020-09-18 15:05 | disposition home or self-care (01) | DRG 189 ==
LOC: JER 10:44 → JERBED 16:47 → J4S 21:56
PROVIDERS: ATTEND Student in an Organized Health Care Education/Training Program
DX: J96.22 Acute and chronic respiratory failure with hypercapnia (principal); E66.2 Morbid (severe) obesity with alveolar hypoventilation; N17.9 Acute kidney failure, unspecified; Z68.42 Body mass index [BMI] 45.0-49.9, adult; L97.518 Non-pressure chronic ulcer of other part of right foot with other specified severity; I42.8 Other cardiomyopathies; I13.0 Hypertensive heart and chronic kidney disease with heart failure and stage 1 through stage 4 chronic kidney disease, or unspecified chronic kidney disease; I50.22 Chronic systolic (congestive) heart failure; F14.20 Cocaine dependence, uncomplicated; N18.9 Chronic kidney disease, unspecified; E11.22 Type 2 diabetes mellitus with diabetic chronic kidney disease; E11.65 Type 2 diabetes mellitus with hyperglycemia; K21.9 Gastro-esophageal reflux disease without esophagitis; I25.10 Atherosclerotic heart disease of native coronary artery without angina pectoris; E78.5 Hyperlipidemia, unspecified; L08.9 Local infection of the skin and subcutaneous tissue, unspecified; E11.621 Type 2 diabetes mellitus with foot ulcer; E11.40 Type 2 diabetes mellitus with diabetic neuropathy, unspecified; I44.4 Left anterior fascicular block; Z79.1 Long term (current) use of non-steroidal anti-inflammatories (NSAID); F17.200 Nicotine dependence, unspecified, uncomplicated; Z95.810 Presence of automatic (implantable) cardiac defibrillator; Z89.422 Acquired absence of other left toe(s)
CPT/HCPCS: 36415; 71045-TC-FY; 71275-TC; 76700-TC; 78315-TC; 80053; 80307; 81003; 82436; 82550; 82565; 82728; 82803; 82962; 83036; 83615; 83735; 83880; 84100; 84133; 84300; 84484; 85025; 85379; 85610; 85730; 86140; 87040; 93005; 93010; 94660; 94761; 99285-25; A9503; C9803; G0008; J1644; Q2036; Q9967; U0003

== ENCOUNTER 2020-10-30 12:53 | Inpatient (IN) | payer OTHER ==
[2020-10-30] MEDS ORDERED: SODIUM CHLORIDE 1,000 ML IV STA (14:23)
[2020-10-30] MEDS ORDERED: ACETAMINOPHEN 1000 MG/100 ML VIAL (NON FORMULARY) IVPB ONE ×2 (14:27→22:46)
[2020-10-30] MEDS ORDERED: FAMOTIDINE 20 MG/50 ML IVPB 20 MG/50 ML MG IVPB ONE ×4 (14:27→23:19)
[2020-10-30] MEDS ORDERED: ACETAMINOPHEN INJECTION 100 ML IVPB ONE ×2 (14:57→23:19)
[2020-10-30] MEDS ORDERED: DEXTROSE 5%-NORMAL SALINE 1,000 ML IV ONE (15:09)
[2020-10-30 15:25] LABS: BASO % 0.5 % (0-2.0); EOS % 2.7 % (0-4.5); HEMATOCRIT 49.4 % (35.4-49); HEMOGLOBIN 16.3 GM/dL (11.7-16.9); LYMPH % 29.1 % (8-40); MCH 30.2 pg (25.7-33.7); MCHC 32.9 g/dl (32.0-35.9); MEAN CELL VOLUME 91.6 fl (80-96); MONO % 6.7 % (3.8-10.2); PLATELET COUNT 150 K/MM3 (134-434); RBC 5.39 M/mm3 (4.00-5.60); WHITE BLOOD COUNT 7.7 K/mm3 (4.0-10.0)
[2020-10-30 15:32] LABS: INR 0.89 (0.83-1.09); PROTHROMBIN TIME (PATIENT) 10.8 SEC (9.7-13.0)
[2020-10-30 15:47] LABS: POTASSIUM 4.1 mmol/L (3.5-5.1)
[2020-10-30 15:49] LABS: CALCIUM 8.6 mg/dL (8.5-10.1)
[2020-10-30 15:50] LABS: ALBUMIN 3.5 g/dl (3.4-5.0); BLOOD UREA NITROGEN 8.5 mg/dL (7-18)
[2020-10-30 15:55] LABS: BILIRUBIN,TOTAL 0.4 mg/dL (0.2-1)
[2020-10-30 15:58] LABS: CREATININE 1.8 mg/dL (0.55-1.3)
[2020-10-30] MEDS ORDERED: diphenhydrAMINE HCL 25 MG CAPSULE (FP) PO ONE (22:45)
[2020-10-30] MEDS ORDERED: FAMOTIDINE 20 MG TABLET PO ONE (22:45)
[2020-10-30] MEDS ORDERED: VANCOMYCIN 1 GM in D5W (PRE-DOCKED) 1,000 MG/250 ML IVPB ONE (23:56)
[2020-10-30] MEDS ORDERED: PIPERACILLIN/TAZOB 3.375 GM 3.375 GM in DEXTROSE 5%-WATER - 50 ML IVPB ONE (23:57)
[2020-10-31] MEDS ORDERED: PIPERACILLIN/TAZOB 3.375 GM 3.375 GM/50 ML BAG IVPB ONE (02:30)
[2020-10-31 08:54] LABS: BASO % 0.4 % (0-2.0); EOS % 2.3 % (0-4.5); HEMATOCRIT 47.1 % (35.4-49); HEMOGLOBIN 15.8 GM/dL (11.7-16.9); MCH 30.5 pg (25.7-33.7); MCHC 33.6 g/dl (32.0-35.9); MEAN CELL VOLUME 90.7 fl (80-96); MEAN PLT VOLUME 10.7 fl (7.5-11.1); MONO % 5.7 % (3.8-10.2); NEUT % 57.6 % (42.8-82.8); PLATELET COUNT 152 K/MM3 (134-434); RBC 5.19 M/mm3 (4.00-5.60); RDW 14.9 % (11.9-15.9); WHITE BLOOD COUNT 6.6 K/mm3 (4.0-10.0)
[2020-10-31 09:15] LABS: POTASSIUM 4.3 mmol/L (3.5-5.1)
[2020-10-31 09:17] LABS: CALCIUM 8.1 mg/dL (8.5-10.1)
[2020-10-31 09:18] LABS: ALBUMIN 3.2 g/dl (3.4-5.0)
[2020-10-31 09:21] LABS: CREATININE 1.4 mg/dL (0.55-1.3)
[2020-10-31 09:22] LABS: BILIRUBIN,TOTAL 0.7 mg/dL (0.2-1); TOT PROT 6.4 g/dl (6.4-8.2)
[2020-10-31] MEDS ORDERED: ENOXAPARIN NA (PORCINE) 40 MG/0.4 ML DISP.SYRIN SQ ONE (09:33)
[2020-10-31] MEDS ORDERED: ENALAPRIL MALEATE 5 MG TABLET ONE (09:33)
[2020-10-31] MEDS ORDERED: PREGABALIN 100 MG CAPSULE ONE (09:33)
[2020-10-31] MEDS ORDERED: FUROSEMIDE 40 MG TABLET (FP) ONE (09:33)
[2020-10-31] MEDS: ENOXAPARIN NA (PORCINE) 40 MG/0.4 ML DISP.SYRIN SQ SCH (09:41)
[2020-10-31] MEDS: FUROSEMIDE 40 MG TABLET (FP) PO SCH (09:41)
[2020-10-31] MEDS: INSULIN SLIDING SCALE (NOVOLOG) 1 VIAL SQ SCH ×3 (09:41→17:51)
[2020-10-31] MEDS: PREGABALIN 100 MG CAPSULE PO SCH (09:41)
[2020-10-31] MEDS: ENALAPRIL MALEATE 2.5 MG TABLET PO SCH (09:42)
[2020-10-31] MEDS: CEFTRIAXONE 2 GM in DEXTROSE 5%-WATER 2 GM/100 ML BAG IVPB SCH (12:40)
[2020-10-31] MEDS ORDERED: ACETAMINOPHEN INJECTION 100 ML IVPB ONE (15:28)
[2020-10-31] MEDS ORDERED: ACETAMINOPHEN 1000 MG/100 ML VIAL (NON FORMULARY) IVPB ONE (15:38)
[2020-10-31] MEDS ORDERED: INSULIN (LEVEMIR) 100 UNITS/ML UNITS SQ SCH (22:25)
[2020-11-01] MEDS ORDERED: ATORVASTATIN CA 10 MG TABLET (FP) ONE (00:30)
[2020-11-01] MEDS ORDERED: PREGABALIN 100 MG CAPSULE ONE (00:30)
[2020-11-01] MEDS: ATORVASTATIN CA 10 MG TABLET (FP) PO SCH ×2 (00:34→21:31)
[2020-11-01] MEDS: PREGABALIN 100 MG CAPSULE PO SCH ×3 (00:34→21:31)
[2020-11-01] MEDS: COLLAGENASE CLOSTRIDIUM HIST. 30 GRAMS TUBE TP SCH (01:00)
[2020-11-01] MEDS ORDERED: ACETAMINOPHEN 325 MG TABLET (FP) PO ONE (02:00)
[2020-11-01 02:37] VITALS: BMI 40.6
[2020-11-01] MEDS: INSULIN SLIDING SCALE (NOVOLOG) 1 VIAL SQ SCH ×5 (06:23→21:33)
[2020-11-01] MEDS ORDERED: INSULIN (NOVOLOG) ASPART 100 UNITS/ML 10ML VIAL ONE ×2 (07:01→20:54)
[2020-11-01 09:21] LABS: BASO % 0.4 % (0-2.0); HEMATOCRIT 48.4 % (35.4-49); LYMPH % 37.6 % (8-40); MCH 30.1 pg (25.7-33.7); MCHC 33.1 g/dl (32.0-35.9); MEAN PLT VOLUME 10.2 fl (7.5-11.1); MONO % 5.9 % (3.8-10.2); NEUT % 53.1 % (42.8-82.8); PLATELET COUNT 145 K/MM3 (134-434); RBC 5.32 M/mm3 (4.00-5.60); RDW 15.4 % (11.9-15.9); WHITE BLOOD COUNT 6.4 K/mm3 (4.0-10.0)
[2020-11-01 09:49] LABS: POTASSIUM 4.3 mmol/L (3.5-5.1)
[2020-11-01] MEDS ORDERED: DEXTROSE 5%-WATER 100 ML IVPB ONE (09:51)
[2020-11-01] MEDS: FUROSEMIDE 40 MG TABLET (FP) PO SCH (10:00)
[2020-11-01] MEDS: ENOXAPARIN NA (PORCINE) 40 MG/0.4 ML DISP.SYRIN SQ SCH (10:00)
[2020-11-01] MEDS: CEFTRIAXONE 2 GM in DEXTROSE 5%-WATER 2 GM/100 ML BAG IVPB SCH (10:01)
[2020-11-01 10:37] LABS: ALBUMIN 3.4 g/dl (3.4-5.0); CALCIUM 8.7 mg/dL (8.5-10.1)
[2020-11-01 10:40] LABS: CREATININE 1.2 mg/dL (0.55-1.3)
[2020-11-01 10:42] LABS: BILIRUBIN,TOTAL 0.5 mg/dL (0.2-1)
[2020-11-01 10:44] LABS: BLOOD UREA NITROGEN 16.5 mg/dL (7-18); TOT PROT 6.6 g/dl (6.4-8.2)
[2020-11-01] MEDS ORDERED: PT OWN MED DRAWER 7, Y5N ONE ×2 (12:31→14:02)
[2020-11-01] MEDS: ENALAPRIL MALEATE 2.5 MG TABLET PO SCH (12:32)
[2020-11-01] MEDS: diphenhydrAMINE HCL 25 MG CAPSULE (FP) PO PRN (20:52)
[2020-11-02] MEDS ORDERED: DEXTROSE 5%-WATER 100 ML IVPB ONE (09:17)
[2020-11-02] MEDS: diphenhydrAMINE HCL 25 MG CAPSULE (FP) PO PRN (09:18)
[2020-11-02] MEDS: PREGABALIN 100 MG CAPSULE PO SCH ×2 (09:18→21:57)
[2020-11-02] MEDS: CEFTRIAXONE 2 GM in DEXTROSE 5%-WATER 2 GM/100 ML BAG IVPB SCH (09:18)
[2020-11-02] MEDS: FUROSEMIDE 40 MG TABLET (FP) PO SCH (09:18)
[2020-11-02] MEDS: ENOXAPARIN NA (PORCINE) 40 MG/0.4 ML DISP.SYRIN SQ SCH (09:18)
[2020-11-02] MEDS: COLLAGENASE CLOSTRIDIUM HIST. 30 GRAMS TUBE TP SCH (09:18)
[2020-11-02] MEDS ORDERED: PT OWN MED DRAWER 7, Y5N ONE (09:19)
[2020-11-02] MEDS: ENALAPRIL MALEATE 2.5 MG TABLET PO SCH (09:20)
[2020-11-02] MEDS: INSULIN SLIDING SCALE (NOVOLOG) 1 VIAL SQ SCH ×3 (11:04→21:57)
[2020-11-02] MEDS ORDERED: INSULIN SLIDING SCALE (NOVOLOG) 1 VIAL SQ SCH (18:54)
[2020-11-02] MEDS ORDERED: MELATONIN 5 MG TABLETS PO ONE (21:30)
[2020-11-02] MEDS ORDERED: INSULIN (NOVOLOG) ASPART 100 UNITS/ML 10ML VIAL ONE (21:47)
[2020-11-02] MEDS: INSULIN (LEVEMIR) 100 UNITS/ML UNITS SQ SCH (21:53)
[2020-11-02] MEDS: ATORVASTATIN CA 10 MG TABLET (FP) PO SCH (21:57)
[2020-11-02] MEDS ORDERED: INSULIN (LEVEMIR) 100 UNITS/ML UNITS SQ SCH (22:00)
[2020-11-03] MEDS: INSULIN (LEVEMIR) 100 UNITS/ML UNITS SQ SCH ×2 (06:36→21:57)
[2020-11-03] MEDS: INSULIN (NOVOLOG) ASPART 100 UNITS/ML 10ML VIAL SQ SCH ×3 (06:37→16:32)
[2020-11-03] MEDS: INSULIN SLIDING SCALE (NOVOLOG) 1 VIAL SQ SCH ×4 (06:38→21:57)
[2020-11-03] MEDS ORDERED: DEXTROSE 5%-WATER 100 ML IVPB ONE (09:28)
[2020-11-03] MEDS ORDERED: PT OWN MED DRAWER 7, Y5N ONE (09:29)
[2020-11-03] MEDS: CEFTRIAXONE 2 GM in DEXTROSE 5%-WATER 2 GM/100 ML BAG IVPB SCH (09:38)
[2020-11-03] MEDS: FUROSEMIDE 40 MG TABLET (FP) PO SCH (09:38)
[2020-11-03] MEDS: PREGABALIN 100 MG CAPSULE PO SCH ×2 (09:38→21:41)
[2020-11-03] MEDS: ENALAPRIL MALEATE 2.5 MG TABLET PO SCH (09:39)
[2020-11-03] MEDS: ENOXAPARIN NA (PORCINE) 40 MG/0.4 ML DISP.SYRIN SQ SCH (09:39)
[2020-11-03] MEDS: diphenhydrAMINE HCL 25 MG CAPSULE (FP) PO PRN (09:44)
[2020-11-03] MEDS: COLLAGENASE CLOSTRIDIUM HIST. 30 GRAMS TUBE TP SCH (09:47)
[2020-11-03] MEDS: hydrOXYzine PAMOATE 25 MG CAPSULE (FP) PO PRN (17:16)
[2020-11-03] MEDS: ATORVASTATIN CA 10 MG TABLET (FP) PO SCH (21:41)
[2020-11-04] MEDS: INSULIN (NOVOLOG) ASPART 100 UNITS/ML 10ML VIAL SQ SCH ×3 (06:11→17:16)
[2020-11-04] MEDS: INSULIN (LEVEMIR) 100 UNITS/ML UNITS SQ SCH ×2 (06:11→21:18)
[2020-11-04] MEDS: INSULIN SLIDING SCALE (NOVOLOG) 1 VIAL SQ SCH ×4 (06:12→21:19)
[2020-11-04] MEDS ORDERED: PT OWN MED DRAWER 7, Y5N ONE ×2 (09:22→20:50)
[2020-11-04] MEDS ORDERED: DEXTROSE 5%-WATER 100 ML IVPB ONE (09:22)
[2020-11-04] MEDS: ENALAPRIL MALEATE 2.5 MG TABLET PO SCH (09:30)
[2020-11-04] MEDS: COLLAGENASE CLOSTRIDIUM HIST. 30 GRAMS TUBE TP SCH (09:30)
[2020-11-04] MEDS: ENOXAPARIN NA (PORCINE) 40 MG/0.4 ML DISP.SYRIN SQ SCH (09:30)
[2020-11-04] MEDS: PREGABALIN 100 MG CAPSULE PO SCH ×2 (09:30→21:15)
[2020-11-04] MEDS: CEFTRIAXONE 2 GM in DEXTROSE 5%-WATER 2 GM/100 ML BAG IVPB SCH (09:30)
[2020-11-04] MEDS: FUROSEMIDE 40 MG TABLET (FP) PO SCH (09:30)
[2020-11-04] MEDS: hydrOXYzine PAMOATE 25 MG CAPSULE (FP) PO PRN (09:30)
[2020-11-04 10:18] LABS: BASO % 0.5 % (0-2.0); EOS % 3.3 % (0-4.5); HEMATOCRIT 49.9 % (35.4-49); HEMOGLOBIN 16.7 GM/dL (11.7-16.9); LYMPH % 34.4 % (8-40); MCH 30.1 pg (25.7-33.7); MCHC 33.5 g/dl (32.0-35.9); MONO % 6.2 % (3.8-10.2); NEUT % 55.6 % (42.8-82.8); PLATELET COUNT 145 K/MM3 (134-434); RBC 5.54 M/mm3 (4.00-5.60); WHITE BLOOD COUNT 6.3 K/mm3 (4.0-10.0)
[2020-11-04 10:37] LABS: POTASSIUM 4.1 mmol/L (3.5-5.1)
[2020-11-04 10:46] LABS: ALBUMIN 3.3 g/dl (3.4-5.0); BLOOD UREA NITROGEN 19.7 mg/dL (7-18)
[2020-11-04 10:48] LABS: BILIRUBIN,TOTAL 0.8 mg/dL (0.2-1); TOT PROT 6.6 g/dl (6.4-8.2)
[2020-11-04] MEDS ORDERED: INSULIN (NOVOLOG) ASPART 100 UNITS/ML 10ML VIAL ONE (20:49)
[2020-11-04] MEDS: ATORVASTATIN CA 10 MG TABLET (FP) PO SCH (21:15)
[2020-11-05] MEDS: INSULIN (LEVEMIR) 100 UNITS/ML UNITS SQ SCH (06:10)
[2020-11-05] MEDS: INSULIN SLIDING SCALE (NOVOLOG) 1 VIAL SQ SCH ×2 (06:11→11:22)
[2020-11-05] MEDS: INSULIN (NOVOLOG) ASPART 100 UNITS/ML 10ML VIAL SQ SCH ×2 (06:11→11:21)
[2020-11-05] MEDS ORDERED: INSULIN (LEVEMIR) 100 UNITS/ML UNITS SQ SCH (07:10)
[2020-11-05] MEDS ORDERED: DEXTROSE 5%-WATER 100 ML IVPB ONE (09:38)
[2020-11-05] MEDS: ENOXAPARIN NA (PORCINE) 40 MG/0.4 ML DISP.SYRIN SQ SCH (09:40)
[2020-11-05] MEDS: COLLAGENASE CLOSTRIDIUM HIST. 30 GRAMS TUBE TP SCH (09:40)
[2020-11-05] MEDS: PREGABALIN 100 MG CAPSULE PO SCH (09:40)
[2020-11-05] MEDS: CEFTRIAXONE 2 GM in DEXTROSE 5%-WATER 2 GM/100 ML BAG IVPB SCH (09:40)
[2020-11-05] MEDS: FUROSEMIDE 40 MG TABLET (FP) PO SCH (09:40)
[2020-11-05] MEDS ORDERED: PT OWN MED DRAWER 7, Y5N ONE (09:41)
[2020-11-05] MEDS: hydrOXYzine PAMOATE 25 MG CAPSULE (FP) PO PRN (09:42)
[2020-11-05] MEDS: ENALAPRIL MALEATE 2.5 MG TABLET PO SCH (09:42)
[2020-11-05 14:22] VITALS: BP 140/88; PULSE 78; TEMP 98.9
== END 2020-11-05 15:02 | disposition home or self-care (01) | DRG 638 ==
LOC: JER 12:53 → JERBED 16:32 → J6S 11-01 01:14
PROVIDERS: ADMIT Internal Medicine; ATTEND Internal Medicine
PROC: 02HV33Z Insertion of Infusion Device into Superior Vena Cava, Percutaneous Approach (ICD-10-PCS; principal; 2020-11-05)
PROC: B518YZA Fluoroscopy of Superior Vena Cava using Other Contrast, Guidance (ICD-10-PCS; 2020-11-05)
DX: E11.69 Type 2 diabetes mellitus with other specified complication (principal); M86.9 Osteomyelitis, unspecified; Z68.41 Body mass index [BMI] 40.0-44.9, adult; L03.90 Cellulitis, unspecified; L97.526 Non-pressure chronic ulcer of other part of left foot with bone involvement without evidence of necrosis; E11.621 Type 2 diabetes mellitus with foot ulcer; E66.01 Morbid (severe) obesity due to excess calories; I10 Essential (primary) hypertension; G47.30 Sleep apnea, unspecified; E11.65 Type 2 diabetes mellitus with hyperglycemia; E11.40 Type 2 diabetes mellitus with diabetic neuropathy, unspecified
CPT/HCPCS: 36415; 36569; 71046-TC-FY; 75820-TC-FY; 77001-TC-FY; 80053; 82962; 85025; 85610; 85651; 85730; 86140; 87040; 87086; 93005; 93010; 97597; 99285-25; 99406; A6021; C1751; C9803; G0463-25; J0131; U0003

== ENCOUNTER 2020-11-06 11:29 | Day surgery (SDC) | payer OTHER ==
[2020-11-06] MEDS ORDERED: DEXTROSE 5%-WATER 100 ML IVPB ONE (11:52)
[2020-11-06] MEDS ORDERED: CEFTRIAXONE 2 GM in DEXTROSE 5%-WATER 100 ML IVPB ONE (12:00)
[2020-11-06 12:48] VITALS: BP 145/80; PULSE 79; TEMP 98.7
== END 2020-11-06 12:53 | disposition home or self-care (01) ==
LOC: J7W 11:29 → JINFUSION 11:29
PROVIDERS: ATTEND Internal Medicine
DX: E11.621 Type 2 diabetes mellitus with foot ulcer (principal); M86.9 Osteomyelitis, unspecified; L97.526 Non-pressure chronic ulcer of other part of left foot with bone involvement without evidence of necrosis; L03.90 Cellulitis, unspecified
CPT/HCPCS: 96365; 97597

== ENCOUNTER 2020-11-07 11:19 | Day surgery (SDC) | payer OTHER ==
[2020-11-07] MEDS ORDERED: CEFTRIAXONE 2 GM in DEXTROSE 5%-WATER 100 ML IVPB ONE (12:00)
[2020-11-07 12:08] VITALS: BP 144/86; PULSE 96; TEMP 98
== END 2020-11-07 15:06 | disposition home or self-care (01) ==
LOC: JINFUSION 11:19 → J7W 11:19 → JINFUSION 15:06
PROVIDERS: ATTEND Internal Medicine
DX: E11.621 Type 2 diabetes mellitus with foot ulcer (principal); M86.9 Osteomyelitis, unspecified; L97.526 Non-pressure chronic ulcer of other part of left foot with bone involvement without evidence of necrosis; L03.90 Cellulitis, unspecified
CPT/HCPCS: 96365

== ENCOUNTER 2020-11-08 11:46 | Day surgery (SDC) | payer OTHER ==
[2020-11-08] MEDS ORDERED: CEFTRIAXONE 2 GM in DEXTROSE 5%-WATER 100 ML IVPB ONE (12:00)
[2020-11-08] MEDS ORDERED: DEXTROSE 5%-WATER 100 ML IVPB ONE (12:09)
[2020-11-08 14:36] VITALS: BP 130/52; PULSE 102; TEMP 98.8
== END 2020-11-08 14:05 | disposition home or self-care (01) ==
LOC: J7W 11:46 → JINFUSION 11:46
PROVIDERS: ATTEND Internal Medicine
DX: E11.621 Type 2 diabetes mellitus with foot ulcer (principal); M86.9 Osteomyelitis, unspecified; L97.526 Non-pressure chronic ulcer of other part of left foot with bone involvement without evidence of necrosis; L03.90 Cellulitis, unspecified
CPT/HCPCS: 96365

== ENCOUNTER 2020-11-13 11:11 | Day surgery (SDC) | payer OTHER ==
[2020-11-13] MEDS ORDERED: DEXTROSE 5%-WATER 100 ML IVPB ONE (11:27)
[2020-11-13] MEDS ORDERED: CEFTRIAXONE 2 GM in DEXTROSE 5%-WATER 100 ML IVPB ONE (11:30)
[2020-11-13 11:48] LABS: HEMATOCRIT 48.4 % (35.4-49); HEMOGLOBIN 16.4 GM/dL (11.7-16.9); MCH 30.8 pg (25.7-33.7); MCHC 33.9 g/dl (32.0-35.9); MEAN PLT VOLUME 9.8 fl (7.5-11.1); PLATELET COUNT 144 K/MM3 (134-434); RBC 5.31 M/mm3 (4.00-5.60); RDW 14.5 % (11.9-15.9); WHITE BLOOD COUNT 8.6 K/mm3 (4.0-10.0)
[2020-11-13 12:21] LABS: ERYTHROCYTE SEDIMENTATION RATE 6 mm/hr (0-20)
[2020-11-13 12:43] VITALS: BP 120/83; PULSE 87; TEMP 98.1
== END 2020-11-13 13:27 | disposition home or self-care (01) ==
LOC: JINFUSION 11:11 → J7W 11:12 → JINFUSION 13:27
PROVIDERS: ATTEND Internal Medicine
DX: E11.621 Type 2 diabetes mellitus with foot ulcer (principal); M86.9 Osteomyelitis, unspecified; L97.526 Non-pressure chronic ulcer of other part of left foot with bone involvement without evidence of necrosis; L03.90 Cellulitis, unspecified
CPT/HCPCS: 36415; 85027; 85651; 86140; 96365

== ENCOUNTER 2020-11-15 11:52 | Day surgery (SDC) | payer OTHER ==
[2020-11-15] MEDS ORDERED: DEXTROSE 5%-WATER 100 ML IVPB ONE (12:06)
[2020-11-15] MEDS ORDERED: CEFTRIAXONE 2 GM in DEXTROSE 5%-WATER 100 ML IVPB ONE (12:15)
[2020-11-15 12:20] VITALS: BP 141/66; PULSE 88; TEMP 98.6
== END 2020-11-15 13:08 | disposition home or self-care (01) ==
LOC: JINFUSION 11:52 → J7W 11:53 → JINFUSION 13:07
PROVIDERS: ATTEND Internal Medicine
DX: E11.621 Type 2 diabetes mellitus with foot ulcer (principal); M86.9 Osteomyelitis, unspecified; Z79.4 Long term (current) use of insulin
CPT/HCPCS: 96365

== ENCOUNTER 2020-11-20 13:14 | Day surgery (SDC) | payer OTHER ==
[2020-11-20] MEDS ORDERED: DEXTROSE 5%-WATER 100 ML IVPB ONE (13:54)
[2020-11-20] MEDS ORDERED: CEFTRIAXONE 2 GM in DEXTROSE 5%-WATER 100 ML IVPB ONE (14:45)
[2020-11-20 19:44] VITALS: BP 135/68; PULSE 86; TEMP 98
== END 2020-11-20 14:45 | disposition home or self-care (01) ==
LOC: J7W 13:14 → JINFUSION 13:14
PROVIDERS: ATTEND Internal Medicine
DX: E11.621 Type 2 diabetes mellitus with foot ulcer (principal); M86.9 Osteomyelitis, unspecified; Z79.4 Long term (current) use of insulin
CPT/HCPCS: 96365

== ENCOUNTER 2020-11-22 11:14 | Day surgery (SDC) | payer OTHER ==
[2020-11-22] MEDS ORDERED: CEFTRIAXONE 2 GM in DEXTROSE 5%-WATER 100 ML IVPB ONE (11:30)
[2020-11-22] MEDS ORDERED: DEXTROSE 5%-WATER 100 ML IVPB ONE (11:30)
[2020-11-22 12:52] VITALS: BP 131/72; PULSE 84; TEMP 98.5
== END 2020-11-22 13:40 | disposition home or self-care (01) ==
LOC: JINFUSION 11:14 → J7W 11:15 → JINFUSION 13:40
PROVIDERS: ATTEND Internal Medicine
DX: E11.621 Type 2 diabetes mellitus with foot ulcer (principal); M86.9 Osteomyelitis, unspecified; Z79.4 Long term (current) use of insulin
CPT/HCPCS: 96365

== ENCOUNTER 2020-11-24 11:16 | Day surgery (SDC) | payer OTHER ==
[2020-11-24] MEDS ORDERED: CEFTRIAXONE 2 GM in DEXTROSE 5%-WATER 100 ML IVPB ONE (11:45)
[2020-11-24] MEDS ORDERED: DEXTROSE 5%-WATER 100 ML IVPB ONE (11:49)
[2020-11-24 12:36] VITALS: BP 137/77; PULSE 82; TEMP 98.4
== END 2020-11-24 12:36 | disposition home or self-care (01) ==
LOC: J7W 11:16 → JINFUSION 11:16
PROVIDERS: ATTEND Internal Medicine
DX: E11.621 Type 2 diabetes mellitus with foot ulcer (principal); M86.9 Osteomyelitis, unspecified; Z79.4 Long term (current) use of insulin
CPT/HCPCS: 96365

== ENCOUNTER 2020-11-25 11:26 | Day surgery (SDC) | payer OTHER ==
[2020-11-25] MEDS ORDERED: CEFTRIAXONE 2 GM in DEXTROSE 5%-WATER 100 ML IVPB ONE (11:30)
[2020-11-25] MEDS ORDERED: DEXTROSE 5%-WATER 100 ML IVPB ONE (12:15)
[2020-11-25 12:26] VITALS: TEMP 98.8
[2020-11-25 12:56] VITALS: BP 138/88; PULSE 90
== END 2020-11-25 13:00 | disposition home or self-care (01) ==
LOC: JINFUSION 11:26 → J7W 11:27 → JINFUSION 13:00
PROVIDERS: ATTEND Internal Medicine
DX: E11.621 Type 2 diabetes mellitus with foot ulcer (principal); M86.9 Osteomyelitis, unspecified; Z79.4 Long term (current) use of insulin
CPT/HCPCS: 36415; 85651; 86140; 96365

== ENCOUNTER 2020-11-26 11:19 | Day surgery (SDC) | payer OTHER ==
[2020-11-26] MEDS ORDERED: CEFTRIAXONE 2 GM in DEXTROSE 5%-WATER 2 GM/100 ML BAG IVPB ONE (12:00)
[2020-11-26] MEDS ORDERED: DEXTROSE 5%-WATER 100 ML IVPB ONE (12:02)
[2020-11-26 12:47] VITALS: BP 150/91; PULSE 87; TEMP 98.3
== END 2020-11-26 15:41 | disposition home or self-care (01) ==
LOC: J7W 11:19 → JINFUSION 11:19
PROVIDERS: ATTEND Internal Medicine
DX: E11.621 Type 2 diabetes mellitus with foot ulcer (principal); M86.9 Osteomyelitis, unspecified; Z79.4 Long term (current) use of insulin
CPT/HCPCS: 96365

== ENCOUNTER 2020-11-27 11:36 | Day surgery (SDC) | payer OTHER ==
[2020-11-27] MEDS ORDERED: CEFTRIAXONE 2 GM in DEXTROSE 5%-WATER 100 ML IVPB ONE (12:00)
[2020-11-27] MEDS ORDERED: DEXTROSE 5%-WATER 100 ML IVPB ONE (12:07)
[2020-11-27 12:26] VITALS: TEMP 98.2
[2020-11-27 13:51] VITALS: BP 122/78; PULSE 82
== END 2020-11-27 13:38 | disposition home or self-care (01) ==
LOC: JINFUSION 11:36 → J7W 11:36 → JINFUSION 13:38
PROVIDERS: ATTEND Internal Medicine
DX: E11.621 Type 2 diabetes mellitus with foot ulcer (principal); M86.9 Osteomyelitis, unspecified; Z79.4 Long term (current) use of insulin
CPT/HCPCS: 96365

== ENCOUNTER 2020-11-29 11:14 | Day surgery (SDC) | payer OTHER ==
[2020-11-29 11:55] VITALS: BP 142/97; PULSE 87; TEMP 98.9
[2020-11-29] MEDS ORDERED: DEXTROSE 5%-WATER 100 ML IVPB ONE (11:56)
[2020-11-29] MEDS ORDERED: CEFTRIAXONE 2 GM in DEXTROSE 5%-WATER 100 ML IVPB ONE (12:00)
== END 2020-11-29 12:45 | disposition home or self-care (01) ==
LOC: JINFUSION 11:14 → J7W 11:16 → JINFUSION 12:45
PROVIDERS: ATTEND Internal Medicine
DX: E11.621 Type 2 diabetes mellitus with foot ulcer (principal); M86.9 Osteomyelitis, unspecified; Z79.4 Long term (current) use of insulin
CPT/HCPCS: 96365

== ENCOUNTER 2020-12-01 09:09 | Emergency (ER) | payer OTHER ==
[2020-12-01 09:15] VITALS: TEMP 98.1; BMI 40.4
[2020-12-01] MEDS ORDERED: SODIUM CHLORIDE 1,000 ML IV STA (09:21)
[2020-12-01] MEDS ORDERED: METOCLOPRAMIDE HCL INJECTION 10 MG/2 ML VIAL IVPB ONE (09:21)
[2020-12-01] MEDS ORDERED: METOCLOPRAMIDE HCL INJECTION 10 MG/2 ML VIAL ONE (10:37)
[2020-12-01 11:36] LABS: INR 1.03 (0.83-1.09); PROTHROMBIN TIME (PATIENT) 12.6 SEC (9.7-13.0)
[2020-12-01 11:38] LABS: CHLORIDE 99 mmol/L (98-107); POTASSIUM 4.6 mmol/L (3.5-5.1); SODIUM 138 mmol/L (136-145)
[2020-12-01 11:41] LABS: ALBUMIN 3.5 g/dl (3.4-5.0); ANION GAP 6 MMOL/L (8-16); CALCIUM 9.1 mg/dL (8.5-10.1); CO2 32 mmol/L (21-32); LIPASE 43 U/L (73-393)
[2020-12-01 11:43] LABS: BLOOD UREA NITROGEN 6.3 mg/dL (7-18); GLUCOSE,RANDOM 291 mg/dL (74-106)
[2020-12-01 11:44] LABS: CREATININE 1.3 mg/dL (0.55-1.3); SGOT/AST 16 U/L (15-37); SGPT/ALT 23 U/L (13-61)
[2020-12-01 11:46] LABS: BILIRUBIN,TOTAL 1.2 mg/dL (0.2-1); TOT PROT 7.4 g/dl (6.4-8.2)
[2020-12-01 11:47] LABS: ALK PHOS 89 U/L (45-117)
[2020-12-01 11:55] LABS: BASO % 0.6 % (0-2.0); HEMATOCRIT 52.9 % (35.4-49); LYMPH % 26.3 % (8-40); MCH 30.5 pg (25.7-33.7); MCHC 33.9 g/dl (32.0-35.9); MEAN PLT VOLUME 9.8 fl (7.5-11.1); MONO % 5.4 % (3.8-10.2); NEUT % 65.7 % (42.8-82.8); PLATELET COUNT 182 K/MM3 (134-434); RBC 5.88 M/mm3 (4.00-5.60); RDW 14.5 % (11.9-15.9); WHITE BLOOD COUNT 9.4 K/mm3 (4.0-10.0)
[2020-12-01] MEDS ORDERED: FAMOTIDINE 20 MG/50 ML IVPB 20 MG/50 ML MG IVPB ONE ×2 (12:12→12:52)
[2020-12-01] MEDS ORDERED: MAG HYDROX/AL HYDROX/SIMETH -MYLANTA- ORAL SUSPENSION PO ONE (12:13)
[2020-12-01 12:29] LABS: EPI CELLS 29 /uL (0-25.1); HYALINE CASTS 10 /uL (0-3.1); PH,URINE 6.5 (5.0-8.0); URINE APPEARANCE CLOUDY; URINE BACTERIA 33 /uL (0-1359); URINE BILIRUBIN NEGATIVE (NEGATIVE); URINE COLOR DK YELLOW; URINE GLUCOSE (UA) 3+ (NEGATIVE); URINE KETONE 1+ (NEGATIVE); URINE LEUK ESTERASE NEGATIVE (NEGATIVE); URINE NITRITE NEGATIVE (NEGATIVE); URINE PROTEIN 3+ (NEGATIVE); URINE RBC 35 /uL (0-23.9); URINE WBC 7 /uL (0-25.8)
[2020-12-01] MEDS ORDERED: MAG HYDROX/AL HYDROX/SIMETH 30 ML UNIT-DOSE CUP ONE (12:52)
[2020-12-01] MEDS ORDERED: LIDOCAINE VISCOUS 2% ORAL/TOP 100 ML BOTTLE MM ONE (14:41)
[2020-12-01] MEDS ORDERED: PANTOPRAZOLE SODIUM 40 MG VIAL IVPB ONE (14:41)
[2020-12-01] MEDS ORDERED: CEFTRIAXONE 2 GM-D5W BAG 2 GM/50 ML BAG IVPB ONE (14:41)
[2020-12-01] MEDS ORDERED: LIDOCAINE VISCOUS 2% ORAL/TOP 20 ML UNIT-DOSE CUP ONE (15:34)
[2020-12-01] MEDS ORDERED: PANTOPRAZOLE SODIUM 40 MG VIAL ONE (15:34)
[2020-12-01] MEDS ORDERED: CEFTRIAXONE 2 GM/100 ML BAG IVPB ONE (15:34)
[2020-12-01 16:25] VITALS: BP 154/66; PULSE 95
== END 2020-12-01 16:31 | disposition home or self-care (01) ==
LOC: JER 09:09
PROC: 3E03329 Introduction of Other Anti-infective into Peripheral Vein, Percutaneous Approach (ICD-10-PCS; principal; 2020-12-01)
PROC: 3E033GC Introduction of Other Therapeutic Substance into Peripheral Vein, Percutaneous Approach (ICD-10-PCS; 2020-12-01)
PROC: 3E033GC Introduction of Other Therapeutic Substance into Peripheral Vein, Percutaneous Approach (ICD-10-PCS; 2020-12-01)
PROC: 3E033GC Introduction of Other Therapeutic Substance into Peripheral Vein, Percutaneous Approach (ICD-10-PCS; 2020-12-01)
PROC: 3E033GC Introduction of Other Therapeutic Substance into Peripheral Vein, Percutaneous Approach (ICD-10-PCS; 2020-12-01)
PROC: 3E0337Z Introduction of Electrolytic and Water Balance Substance into Peripheral Vein, Percutaneous Approach (ICD-10-PCS; 2020-12-01)
DX: R10.31 Right lower quadrant pain (principal); L29.9 Pruritus, unspecified
CPT/HCPCS: 36415; 71046-TC-FY; 76705-TC; 80053; 81003; 82550; 83605; 83690; 84484; 85025; 85610; 87040; 87086; 87186; 93005; 93010; 99285-25; C9803; U0003

== ENCOUNTER 2020-12-02 11:26 | Day surgery (SDC) | payer OTHER ==
[2020-12-02] MEDS ORDERED: DEXTROSE 5%-WATER 100 ML IVPB ONE (11:57)
[2020-12-02] MEDS ORDERED: CEFTRIAXONE 2 GM in DEXTROSE 5%-WATER 100 ML IVPB ONE (12:00)
[2020-12-02 13:14] VITALS: BP 120/68; PULSE 90; TEMP 98.9
[2020-12-02 13:55] LABS: HEMATOCRIT 48.1 % (35.4-49); HEMOGLOBIN 16.3 GM/dL (11.7-16.9); MCH 30.7 pg (25.7-33.7); MCHC 33.9 g/dl (32.0-35.9); MEAN CELL VOLUME 90.6 fl (80-96); PLATELET COUNT 170 K/MM3 (134-434); RBC 5.31 M/mm3 (4.00-5.60); RDW 14.1 % (11.9-15.9); WHITE BLOOD COUNT 9.4 K/mm3 (4.0-10.0)
== END 2020-12-02 13:16 | disposition home or self-care (01) ==
LOC: JINFUSION 11:26 → J7W 11:27 → JINFUSION 13:16
PROVIDERS: ATTEND Internal Medicine
DX: E11.69 Type 2 diabetes mellitus with other specified complication (principal); M86.9 Osteomyelitis, unspecified
CPT/HCPCS: 36415; 85027; 85651; 86140; 96365

== ENCOUNTER 2020-12-03 11:24 | Day surgery (SDC) | payer OTHER ==
[2020-12-03] MEDS ORDERED: DEXTROSE 5%-WATER 100 ML IVPB ONE (11:54)
[2020-12-03] MEDS ORDERED: CEFTRIAXONE 2 GM in DEXTROSE 5%-WATER 100 ML IVPB ONE (12:00)
[2020-12-03 12:21] VITALS: BP 111/57; PULSE 88; TEMP 98.4
== END 2020-12-03 12:37 | disposition home or self-care (01) ==
LOC: JINFUSION 11:24 → J7W 11:24 → JINFUSION 12:37
PROVIDERS: ATTEND Internal Medicine
DX: E11.69 Type 2 diabetes mellitus with other specified complication (principal)
CPT/HCPCS: 96365

== ENCOUNTER 2020-12-05 11:59 | Day surgery (SDC) | payer OTHER ==
[2020-12-05] MEDS ORDERED: DEXTROSE 5%-WATER 100 ML IVPB ONE (12:06)
[2020-12-05 12:37] VITALS: BP 157/85; PULSE 87; TEMP 98.7
== END 2020-12-05 14:52 | disposition home or self-care (01) ==
LOC: J7W 11:59 → JINFUSION 11:59
PROVIDERS: ATTEND Internal Medicine
DX: E11.69 Type 2 diabetes mellitus with other specified complication (principal); M86.9 Osteomyelitis, unspecified
CPT/HCPCS: 96365

== ENCOUNTER 2020-12-08 10:05 | Day surgery (SDC) | payer OTHER ==
[2020-12-08] MEDS ORDERED: DEXTROSE 5%-WATER 100 ML IVPB ONE (10:22)
[2020-12-08] MEDS ORDERED: CEFTRIAXONE 2 GM in DEXTROSE 5%-WATER 100 ML IVPB ONE (10:30)
[2020-12-08 12:51] VITALS: BP 154/89; PULSE 100; TEMP 98.4
== END 2020-12-08 14:43 | disposition home or self-care (01) ==
LOC: JINFUSION 10:05 → J7W 10:06 → JINFUSION 14:43
PROVIDERS: ATTEND Internal Medicine
DX: E11.69 Type 2 diabetes mellitus with other specified complication (principal); M86.9 Osteomyelitis, unspecified
CPT/HCPCS: 96365

== ENCOUNTER 2020-12-12 09:56 | Day surgery (SDC) | payer OTHER ==
[2020-12-12] MEDS ORDERED: CEFTRIAXONE 2 GM in DEXTROSE 5%-WATER 2 GM/100 ML BAG IVPB ONE (10:00)
[2020-12-12] MEDS ORDERED: DEXTROSE 5%-WATER 100 ML IVPB ONE (11:28)
[2020-12-12 11:38] LABS: HEMATOCRIT 50.4 % (35.4-49); HEMOGLOBIN 17.1 GM/dL (11.7-16.9); MCH 30.7 pg (25.7-33.7); MEAN CELL VOLUME 90.3 fl (80-96); PLATELET COUNT 167 K/MM3 (134-434); RBC 5.58 M/mm3 (4.00-5.60); RDW 14.5 % (11.9-15.9); WHITE BLOOD COUNT 7.6 K/mm3 (4.0-10.0)
[2020-12-12 11:48] VITALS: TEMP 98.8
[2020-12-12 12:13] VITALS: BP 144/78; PULSE 77
[2020-12-12 12:19] LABS: ERYTHROCYTE SEDIMENTATION RATE 7 mm/hr (0-20)
== END 2020-12-12 12:16 | disposition home or self-care (01) ==
LOC: JINFUSION 09:56 → J7W 11:11 → JINFUSION 12:16
PROVIDERS: ATTEND Internal Medicine
DX: E11.69 Type 2 diabetes mellitus with other specified complication (principal)
CPT/HCPCS: 36415; 85027; 85651; 86140; 96365

== ENCOUNTER 2020-12-13 11:35 | Day surgery (SDC) | payer OTHER ==
[2020-12-13] MEDS ORDERED: DEXTROSE 5%-WATER 100 ML IVPB ONE (11:53)
[2020-12-13] MEDS ORDERED: CEFTRIAXONE 2 GM in DEXTROSE 5%-WATER 100 ML IVPB ONE (12:00)
[2020-12-13 14:28] VITALS: BP 133/80; PULSE 83; TEMP 98
== END 2020-12-13 14:31 | disposition home or self-care (01) ==
LOC: JINFUSION 11:35 → J7W 11:37 → JINFUSION 14:31
PROVIDERS: ATTEND Internal Medicine
DX: E11.69 Type 2 diabetes mellitus with other specified complication (principal); M86.9 Osteomyelitis, unspecified
CPT/HCPCS: 96365

== ENCOUNTER 2020-12-14 11:55 | Day surgery (SDC) | payer OTHER ==
[2020-12-14] MEDS ORDERED: CEFTRIAXONE 2 GM in DEXTROSE 5%-WATER 100 ML IVPB ONE (13:00)
[2020-12-14] MEDS ORDERED: DEXTROSE 5%-WATER 100 ML IVPB ONE (13:04)
[2020-12-14 14:38] VITALS: BP 140/82; PULSE 79; TEMP 98
== END 2020-12-14 14:41 | disposition home or self-care (01) ==
LOC: JINFUSION 11:55 → J7W 11:56 → JINFUSION 14:41
PROVIDERS: ATTEND Internal Medicine
DX: E11.69 Type 2 diabetes mellitus with other specified complication (principal); M86.9 Osteomyelitis, unspecified
CPT/HCPCS: 96365

== ENCOUNTER 2020-12-15 11:37 | Day surgery (SDC) | payer OTHER ==
[2020-12-15] MEDS ORDERED: DEXTROSE 5%-WATER 100 ML IVPB ONE (11:47)
[2020-12-15 12:02] VITALS: TEMP 98.3
[2020-12-15 12:50] VITALS: BP 154/79; PULSE 83
== END 2020-12-15 13:24 | disposition home or self-care (01) ==
LOC: JINFUSION 11:37 → J7W 11:38 → JINFUSION 13:24
PROVIDERS: ATTEND Internal Medicine
DX: E11.69 Type 2 diabetes mellitus with other specified complication (principal); M86.9 Osteomyelitis, unspecified
CPT/HCPCS: 96365

== ENCOUNTER 2020-12-16 13:15 | Day surgery (SDC) | payer OTHER ==
[2020-12-16 13:27] LABS: HEMATOCRIT 50.8 % (35.4-49); HEMOGLOBIN 17.4 GM/dL (11.7-16.9); MCH 30.5 pg (25.7-33.7); MCHC 34.3 g/dl (32.0-35.9); MEAN CELL VOLUME 88.9 fl (80-96); MEAN PLT VOLUME 10.2 fl (7.5-11.1); PLATELET COUNT 190 K/MM3 (134-434); RBC 5.71 M/mm3 (4.00-5.60); RDW 13.9 % (11.9-15.9); WHITE BLOOD COUNT 7.9 K/mm3 (4.0-10.0)
[2020-12-16] MEDS ORDERED: DEXTROSE 5%-WATER 100 ML IVPB ONE (13:31)
[2020-12-16 14:34] LABS: ERYTHROCYTE SEDIMENTATION RATE 6 mm/hr (0-20)
[2020-12-16 20:11] VITALS: BP 136/75; PULSE 85; TEMP 98.7
== END 2020-12-16 14:20 | disposition home or self-care (01) ==
LOC: JINFUSION 13:15 → J7W 13:15 → JINFUSION 14:20
PROVIDERS: ATTEND Internal Medicine
DX: E11.69 Type 2 diabetes mellitus with other specified complication (principal); M86.9 Osteomyelitis, unspecified
CPT/HCPCS: 36415; 85027; 85651; 86140; 96365

== ENCOUNTER 2020-12-17 11:38 | Day surgery (SDC) | payer OTHER ==
[2020-12-17] MEDS ORDERED: DEXTROSE 5%-WATER 100 ML IVPB ONE (11:54)
[2020-12-17 18:54] VITALS: BP 138/92; PULSE 93; TEMP 97.9
== END 2020-12-17 18:53 | disposition home or self-care (01) ==
LOC: JINFUSION 11:38 → J7W 11:38 → JINFUSION 18:53
PROVIDERS: ATTEND Internal Medicine
DX: E11.69 Type 2 diabetes mellitus with other specified complication (principal); M86.9 Osteomyelitis, unspecified
CPT/HCPCS: 96365

== ENCOUNTER 2020-12-18 11:32 | Day surgery (SDC) | payer OTHER ==
[2020-12-18] MEDS ORDERED: DEXTROSE 5%-WATER 100 ML IVPB ONE (12:08)
[2020-12-18 12:24] VITALS: PULSE 83; TEMP 98.8
[2020-12-18 12:54] VITALS: BP 150/87
== END 2020-12-18 12:55 | disposition home or self-care (01) ==
LOC: JINFUSION 11:32 → J7W 11:33 → JINFUSION 12:55
PROVIDERS: ATTEND Internal Medicine
DX: E11.69 Type 2 diabetes mellitus with other specified complication (principal); M86.9 Osteomyelitis, unspecified
CPT/HCPCS: 96365

== ENCOUNTER 2020-12-19 11:44 | Day surgery (SDC) | payer OTHER ==
[2020-12-19] MEDS ORDERED: DEXTROSE 5%-WATER 100 ML IVPB ONE (13:10)
[2020-12-19 17:33] VITALS: BP 130/76; PULSE 86; TEMP 98
== END 2020-12-19 17:33 | disposition home or self-care (01) ==
LOC: JINFUSION 11:44 → J7W 11:45 → JINFUSION 17:33
PROVIDERS: ATTEND Internal Medicine
DX: E11.69 Type 2 diabetes mellitus with other specified complication (principal); M86.9 Osteomyelitis, unspecified
CPT/HCPCS: 96365

== ENCOUNTER 2020-12-22 11:51 | Day surgery (SDC) | payer OTHER ==
[2020-12-22] MEDS ORDERED: CEFTRIAXONE 2 GM in DEXTROSE 5%-WATER 100 ML IVPB ONE (12:15)
[2020-12-22] MEDS ORDERED: DEXTROSE 5%-WATER 100 ML IVPB ONE (12:21)
[2020-12-22 16:52] VITALS: BP 135/80; PULSE 82; TEMP 98.2
== END 2020-12-22 16:59 | disposition home or self-care (01) ==
LOC: J7W 11:51 → JINFUSION 11:51
PROVIDERS: ATTEND Internal Medicine
DX: E11.69 Type 2 diabetes mellitus with other specified complication (principal); M86.9 Osteomyelitis, unspecified
CPT/HCPCS: 36415; 85651; 86140; 96365

== ENCOUNTER 2021-01-01 19:08 | Inpatient (IN) | payer OTHER ==
[2021-01-01] MEDS ORDERED: SODIUM CHLORIDE 0.9% 500 ML INFUS.BAG IV ONE (19:58)
[2021-01-01] MEDS ORDERED: ACETAMINOPHEN 1000 MG/100 ML VIAL (NON FORMULARY) IVPB ONE (19:58)
[2021-01-01 20:56] LABS: BASO % 1.3 % (0-2.0); EOS % 2.7 % (0-4.5); HEMATOCRIT 48.5 % (35.4-49); LYMPH % 27.7 % (8-40); MCH 29.8 pg (25.7-33.7); MCHC 32.9 g/dl (32.0-35.9); MEAN CELL VOLUME 90.3 fl (80-96); MEAN PLT VOLUME 10.6 fl (7.5-11.1); MONO % 4.7 % (3.8-10.2); NEUT % 63.6 % (42.8-82.8); PLATELET COUNT 169 K/MM3 (134-434); RBC 5.37 M/mm3 (4.00-5.60); RDW 14.2 % (11.9-15.9); WHITE BLOOD COUNT 9.3 K/mm3 (4.0-10.0)
[2021-01-01 21:06] LABS: POTASSIUM 3.8 mmol/L (3.5-5.1)
[2021-01-01 21:09] LABS: BLOOD UREA NITROGEN 7.4 mg/dL (7-18)
[2021-01-01 21:10] LABS: ALBUMIN 3.2 g/dl (3.4-5.0)
[2021-01-01 21:13] LABS: BILIRUBIN,TOTAL 0.7 mg/dL (0.2-1); CREATININE 1.1 mg/dL (0.55-1.3)
[2021-01-01 21:15] LABS: TOT PROT 6.5 g/dl (6.4-8.2)
[2021-01-01] MEDS ORDERED: METOCLOPRAMIDE HCL INJECTION 10 MG/2 ML VIAL IVPUSH ONE (22:53)
[2021-01-01] MEDS ORDERED: FAMOTIDINE 20 MG/50 ML IVPB 20 MG/50 ML MG IVPB ONE ×2 (22:53→23:20)
[2021-01-01] MEDS ORDERED: MAG HYDROX/AL HYDROX/SIMETH 30 ML UNIT-DOSE CUP PO ONE (22:53)
[2021-01-01] MEDS ORDERED: MAG HYDROX/AL HYDROX/SIMETH 30 ML UNIT-DOSE CUP ONE (23:20)
[2021-01-01] MEDS ORDERED: METOCLOPRAMIDE HCL INJECTION 10 MG/2 ML VIAL ONE (23:20)
[2021-01-01 23:37] LABS: URINE APPEARANCE CLEAR; URINE BILIRUBIN NEGATIVE (NEGATIVE); URINE COLOR YELLOW; URINE GLUCOSE (UA) 3+ (NEGATIVE)
[2021-01-01 23:38] LABS: URINE KETONE 1+ (NEGATIVE); URINE LEUK ESTERASE NEGATIVE (NEGATIVE); URINE NITRITE NEGATIVE (NEGATIVE); URINE PROTEIN 3+ (NEGATIVE)
[2021-01-01 23:39] LABS: EPI CELLS 25.6 /uL (0-25.1); HYALINE CASTS 5.52 /uL (0-3.1); URINE BACTERIA 43 /uL (0-1359); URINE RBC 20.5 /uL (0-23.9)
[2021-01-02] MEDS ORDERED: SODIUM CHLORIDE 1,000 ML IV STA
[2021-01-02] MEDS ORDERED: morphine SULFATE 4 MG/ML VIAL ONE ×2 (00:03→11:53)
[2021-01-02] MEDS ORDERED: MORPHINE SULFATE 2 MG/ML VIAL IVPUSH ONE (04:44)
[2021-01-02] MEDS ORDERED: MORPHINE SULFATE 2 MG/ML VIAL ONE (04:49)
[2021-01-02] MEDS ORDERED: SODIUM CHLORIDE 1,000 ML IV SCH (05:45)
[2021-01-02] MEDS: INSULIN SLIDING SCALE (NOVOLOG) 1 VIAL SQ SCH ×4 (08:00→22:26)
[2021-01-02] MEDS ORDERED: ENALAPRIL MALEATE 2.5 MG TABLET PO SCH (10:00)
[2021-01-02] MEDS ORDERED: FAMOTIDINE 20 MG TABLET ONE (10:13)
[2021-01-02] MEDS ORDERED: ENOXAPARIN NA (PORCINE) 40 MG/0.4 ML DISP.SYRIN SQ ONE (10:14)
[2021-01-02] MEDS ORDERED: ENALAPRIL MALEATE 5 MG TABLET ONE (10:14)
[2021-01-02] MEDS ORDERED: PREGABALIN 100 MG CAPSULE ONE (10:14)
[2021-01-02 10:19] LABS: BASO % 0.8 % (0-2.0); EOS % 2.4 % (0-4.5); HEMATOCRIT 50.2 % (35.4-49); HEMOGLOBIN 16.8 GM/dL (11.7-16.9); LYMPH % 27.9 % (8-40); MCH 30.2 pg (25.7-33.7); MCHC 33.5 g/dl (32.0-35.9); MEAN CELL VOLUME 90.2 fl (80-96); MEAN PLT VOLUME 10.2 fl (7.5-11.1); MONO % 4.8 % (3.8-10.2); NEUT % 64.1 % (42.8-82.8); PLATELET COUNT 156 K/MM3 (134-434); RBC 5.56 M/mm3 (4.00-5.60); RDW 14.1 % (11.9-15.9); WHITE BLOOD COUNT 7.3 K/mm3 (4.0-10.0)
[2021-01-02] MEDS: PREGABALIN 100 MG CAPSULE PO SCH ×2 (10:25→22:17)
[2021-01-02] MEDS: FAMOTIDINE 20 MG TABLET PO SCH ×2 (10:25→22:18)
[2021-01-02] MEDS: ENOXAPARIN NA (PORCINE) 40 MG/0.4 ML DISP.SYRIN SQ SCH (10:39)
[2021-01-02 10:40] LABS: ALBUMIN 3.4 g/dl (3.4-5.0); CALCIUM 8.9 mg/dL (8.5-10.1); MAGNESIUM 1.9 mg/dL (1.8-2.4)
[2021-01-02 10:44] LABS: TOT PROT 6.9 g/dl (6.4-8.2)
[2021-01-02] MEDS ORDERED: morphine CARPU-JECT 4 MG/1 ML DISP.SYRIN IVPUSH ONE ×2 (11:49)
[2021-01-02] MEDS ORDERED: LABETALOL HCL 5 MG/1 ML (100MG/20 ML VIAL) IVPUSH ONE (14:21)
[2021-01-02] MEDS ORDERED: PANTOPRAZOLE 20 MG TABLET PO ONE (14:30)
[2021-01-02] MEDS ORDERED: amLODIPine BESYLATE 5 MG TABLET (FP) ONE (14:30)
[2021-01-02] MEDS ORDERED: LABETALOL HCL 5 MG/1 ML (100MG/20 ML VIAL) ONE (14:30)
[2021-01-02] MEDS: PANTOPRAZOLE 20 MG TABLET PO SCH (14:50)
[2021-01-02] MEDS: amLODIPine BESYLATE 10 MG TABLET (FP) PO SCH (14:50)
[2021-01-02] MEDS ORDERED: CEFTRIAXONE 1 GM/50 ML BAG ONE (16:03)
[2021-01-02] MEDS: CEFTRIAXONE 1 GM in DEXTROSE 5%-WATER - 50 ML IVPB SCH (16:14)
[2021-01-02] MEDS ORDERED: traMADol HCL 50 MG TABLET ONE (16:16)
[2021-01-02] MEDS: traMADol HCL 50 MG TABLET PO PRN ×2 (16:23→22:40)
[2021-01-02] MEDS ORDERED: ACETAMINOPHEN INJECTION 100 ML IVPB ONE (20:13)
[2021-01-02] MEDS: ACETAMINOPHEN 1000 MG/100 ML VIAL (NON FORMULARY) IVPB PRN (20:18)
[2021-01-02] MEDS ORDERED: traZODone HCL 100 MG TABLET (FP) PO SCH (22:00)
[2021-01-02] MEDS: ATORVASTATIN CA 10 MG TABLET (FP) PO SCH (22:18)
[2021-01-03] MEDS: ACETAMINOPHEN 1000 MG/100 ML VIAL (NON FORMULARY) IVPB PRN (05:14)
[2021-01-03] MEDS: INSULIN SLIDING SCALE (NOVOLOG) 1 VIAL SQ SCH ×4 (06:15→21:21)
[2021-01-03] MEDS: traMADol HCL 50 MG TABLET PO PRN (08:47)
[2021-01-03] MEDS: ENOXAPARIN NA (PORCINE) 40 MG/0.4 ML DISP.SYRIN SQ SCH (09:20)
[2021-01-03 09:36] LABS: BASO % 0.5 % (0-2.0); EOS % 2.7 % (0-4.5); HEMATOCRIT 47.8 % (35.4-49); LYMPH % 26.5 % (8-40); MCHC 33.4 g/dl (32.0-35.9); MEAN CELL VOLUME 89.8 fl (80-96); MEAN PLT VOLUME 10.1 fl (7.5-11.1); MONO % 5.7 % (3.8-10.2); NEUT % 64.6 % (42.8-82.8); PLATELET COUNT 158 K/MM3 (134-434); RBC 5.32 M/mm3 (4.00-5.60); RDW 13.8 % (11.9-15.9); WHITE BLOOD COUNT 6.9 K/mm3 (4.0-10.0)
[2021-01-03] MEDS ORDERED: cefTRIAXone SODIUM 1 GM VIAL ONE (09:44)
[2021-01-03] MEDS ORDERED: PT OWN MED DRAWER 7, Y5N ONE (09:44)
[2021-01-03] MEDS ORDERED: DEXTROSE 5%-WATER - 50 ML IVPB ONE (09:44)
[2021-01-03] MEDS: PANTOPRAZOLE 20 MG TABLET PO SCH (09:48)
[2021-01-03] MEDS: amLODIPine BESYLATE 10 MG TABLET (FP) PO SCH (09:49)
[2021-01-03] MEDS: FAMOTIDINE 20 MG TABLET PO SCH (09:49)
[2021-01-03] MEDS: CEFTRIAXONE 1 GM in DEXTROSE 5%-WATER - 50 ML IVPB SCH (09:49)
[2021-01-03 11:36] LABS: POTASSIUM 3.6 mmol/L (3.5-5.1)
[2021-01-03 11:40] LABS: ALBUMIN 3.2 g/dl (3.4-5.0); BLOOD UREA NITROGEN 6.4 mg/dL (7-18); CALCIUM 8.4 mg/dL (8.5-10.1)
[2021-01-03 11:45] LABS: BILIRUBIN,TOTAL 1.1 mg/dL (0.2-1); TOT PROT 6.6 g/dl (6.4-8.2)
[2021-01-03] MEDS: ENALAPRIL MALEATE 5 MG TABLET PO SCH (12:07)
[2021-01-03] MEDS ORDERED: MORPHINE SULFATE 2 MG/ML VIAL IVPUSH ONE ×2 (15:11→21:15)
[2021-01-03] MEDS: ATORVASTATIN CA 10 MG TABLET (FP) PO SCH (21:15)
[2021-01-04] MEDS ORDERED: ACETAMINOPHEN 1000 MG/100 ML VIAL (NON FORMULARY) IVPB ONE ×3 (00:56→16:24)
[2021-01-04] MEDS: INSULIN SLIDING SCALE (NOVOLOG) 1 VIAL SQ SCH ×4 (06:33→21:19)
[2021-01-04 09:24] LABS: BASO % 0.5 % (0-2.0); EOS % 3.2 % (0-4.5); HEMATOCRIT 46.8 % (35.4-49); HEMOGLOBIN 16.1 GM/dL (11.7-16.9); LYMPH % 30.2 % (8-40); MCH 30.3 pg (25.7-33.7); MCHC 34.3 g/dl (32.0-35.9); MEAN CELL VOLUME 88.4 fl (80-96); MEAN PLT VOLUME 9.7 fl (7.5-11.1); MONO % 5.7 % (3.8-10.2); NEUT % 60.4 % (42.8-82.8); PLATELET COUNT 153 K/MM3 (134-434); RDW 14.1 % (11.9-15.9); WHITE BLOOD COUNT 5.5 K/mm3 (4.0-10.0)
[2021-01-04] MEDS ORDERED: cefTRIAXone SODIUM 1 GM VIAL ONE (09:28)
[2021-01-04] MEDS ORDERED: PT OWN MED DRAWER 7, Y5N ONE (09:28)
[2021-01-04] MEDS ORDERED: DEXTROSE 5%-WATER - 50 ML IVPB ONE (09:29)
[2021-01-04] MEDS: ENOXAPARIN NA (PORCINE) 40 MG/0.4 ML DISP.SYRIN SQ SCH (09:31)
[2021-01-04] MEDS: CEFTRIAXONE 1 GM in DEXTROSE 5%-WATER - 50 ML IVPB SCH (09:32)
[2021-01-04] MEDS: PANTOPRAZOLE 20 MG TABLET PO SCH (09:32)
[2021-01-04] MEDS: amLODIPine BESYLATE 10 MG TABLET (FP) PO SCH (09:32)
[2021-01-04] MEDS: ENALAPRIL MALEATE 5 MG TABLET PO SCH (09:32)
[2021-01-04 09:48] LABS: POTASSIUM 4.1 mmol/L (3.5-5.1)
[2021-01-04 09:53] LABS: ALBUMIN 3.1 g/dl (3.4-5.0); CALCIUM 8.4 mg/dL (8.5-10.1)
[2021-01-04 09:54] LABS: BLOOD UREA NITROGEN 7.3 mg/dL (7-18)
[2021-01-04 09:58] LABS: BILIRUBIN,TOTAL 0.9 mg/dL (0.2-1); TOT PROT 6.3 g/dl (6.4-8.2)
[2021-01-04 10:41] LABS: POTASSIUM 4.2 mmol/L (3.5-5.1)
[2021-01-04 10:50] LABS: BLOOD UREA NITROGEN 7.6 mg/dL (7-18); CALCIUM 8.9 mg/dL (8.5-10.1)
[2021-01-04 10:53] LABS: CREATININE 1.1 mg/dL (0.55-1.3)
[2021-01-04] MEDS: ACETAMINOPHEN 325 MG TABLET (FP) PO PRN ×2 (14:38→22:52)
[2021-01-04] MEDS ORDERED: MORPHINE SULFATE 2 MG/ML VIAL IVPUSH ONE (20:50)
[2021-01-04] MEDS: ATORVASTATIN CA 10 MG TABLET (FP) PO SCH (21:17)
[2021-01-04] MEDS: INSULIN (LEVEMIR) 100 UNITS/ML UNITS SQ SCH (21:19)
[2021-01-05] MEDS ORDERED: ACETAMINOPHEN 1000 MG/100 ML VIAL (NON FORMULARY) IVPB ONE (00:53)
[2021-01-05] MEDS: INSULIN SLIDING SCALE (NOVOLOG) 1 VIAL SQ SCH ×4 (06:11→21:32)
[2021-01-05] MEDS: ACETAMINOPHEN 325 MG TABLET (FP) PO PRN (06:17)
[2021-01-05 08:41] LABS: HEMATOCRIT 46.2 % (35.4-49); HEMOGLOBIN 15.6 GM/dL (11.7-16.9); MCH 30.4 pg (25.7-33.7); MCHC 33.8 g/dl (32.0-35.9); MEAN PLT VOLUME 10.3 fl (7.5-11.1); PLATELET COUNT 147 K/MM3 (134-434); RBC 5.13 M/mm3 (4.00-5.60); RDW 13.7 % (11.9-15.9); WHITE BLOOD COUNT 5.4 K/mm3 (4.0-10.0)
[2021-01-05 08:57] LABS: POTASSIUM 4.2 mmol/L (3.5-5.1)
[2021-01-05 09:10] LABS: ALBUMIN 3.1 g/dl (3.4-5.0); BLOOD UREA NITROGEN 6.7 mg/dL (7-18)
[2021-01-05 09:12] LABS: CALCIUM 8.5 mg/dL (8.5-10.1)
[2021-01-05 09:13] LABS: CREATININE 1.1 mg/dL (0.55-1.3)
[2021-01-05 09:15] LABS: BILIRUBIN,TOTAL 0.8 mg/dL (0.2-1); TOT PROT 6.4 g/dl (6.4-8.2)
[2021-01-05] MEDS: ACETAMINOPHEN 1000 MG/100 ML VIAL (NON FORMULARY) IVPB PRN ×2 (09:43→15:52)
[2021-01-05] MEDS ORDERED: cefTRIAXone SODIUM 1 GM VIAL ONE (11:19)
[2021-01-05] MEDS ORDERED: DEXTROSE 5%-WATER - 50 ML IVPB ONE (11:19)
[2021-01-05] MEDS: CEFTRIAXONE 1 GM in DEXTROSE 5%-WATER - 50 ML IVPB SCH (11:25)
[2021-01-05] MEDS: PANTOPRAZOLE 20 MG TABLET PO SCH (11:25)
[2021-01-05] MEDS: ENALAPRIL MALEATE 5 MG TABLET PO SCH (11:25)
[2021-01-05] MEDS: ENOXAPARIN NA (PORCINE) 40 MG/0.4 ML DISP.SYRIN SQ SCH (11:25)
[2021-01-05] MEDS: amLODIPine BESYLATE 10 MG TABLET (FP) PO SCH (11:25)
[2021-01-05 17:06] LABS: TRANSGLUTAMINASE IGA < 2 U/mL (0-3); TRANSGLUTAMINASE IGG < 2 U/mL (0-5)
[2021-01-05] MEDS ORDERED: traMADol HCL 50 MG TABLET PO ONE (17:37)
[2021-01-05] MEDS ORDERED: MORPHINE SULFATE 2 MG/ML VIAL IVPUSH ONE (20:38)
[2021-01-05] MEDS: ATORVASTATIN CA 10 MG TABLET (FP) PO SCH (21:30)
[2021-01-05] MEDS: INSULIN (LEVEMIR) 100 UNITS/ML UNITS SQ SCH (21:32)
[2021-01-06] MEDS: ACETAMINOPHEN 1000 MG/100 ML VIAL (NON FORMULARY) IVPB PRN ×2 (05:05→10:38)
[2021-01-06] MEDS: INSULIN SLIDING SCALE (NOVOLOG) 1 VIAL SQ SCH ×4 (06:20→22:19)
[2021-01-06] MEDS ORDERED: INSULIN (LEVEMIR) 100 UNITS/ML UNITS SQ ONE (06:44)
[2021-01-06 08:21] LABS: HEMATOCRIT 48.7 % (35.4-49); HEMOGLOBIN 16.6 GM/dL (11.7-16.9); MCHC 34.1 g/dl (32.0-35.9); MEAN PLT VOLUME 9.8 fl (7.5-11.1)
[2021-01-06 08:25] LABS: MCH 30.4 pg (25.7-33.7); MEAN CELL VOLUME 89.3 fl (80-96); PLATELET COUNT 169 K/MM3 (134-434); RBC 5.46 M/mm3 (4.00-5.60); RDW 13.8 % (11.9-15.9); WHITE BLOOD COUNT 6.7 K/mm3 (4.0-10.0)
[2021-01-06] MEDS ORDERED: INSULIN (LEVEMIR) 100 UNITS/ML UNITS SQ SCH (08:30)
[2021-01-06 08:33] LABS: POTASSIUM 4.3 mmol/L (3.5-5.1)
[2021-01-06 08:36] LABS: ALBUMIN 3.4 g/dl (3.4-5.0); CALCIUM 9.3 mg/dL (8.5-10.1)
[2021-01-06 08:37] LABS: BLOOD UREA NITROGEN 9.8 mg/dL (7-18)
[2021-01-06 08:40] LABS: CREATININE 1.1 mg/dL (0.55-1.3); PHOSPHOROUS 3.1 mg/dL (2.5-4.9)
[2021-01-06 08:41] LABS: BILIRUBIN,TOTAL 0.9 mg/dL (0.2-1); TOT PROT 6.9 g/dl (6.4-8.2)
[2021-01-06] MEDS ORDERED: MAG HYDROX/AL HYDROX/SIMETH 30 ML UNIT-DOSE CUP PO PRN (09:01)
[2021-01-06] MEDS ORDERED: DEXTROSE 5%-WATER - 50 ML IVPB ONE (09:37)
[2021-01-06] MEDS ORDERED: cefTRIAXone SODIUM 1 GM VIAL ONE (09:37)
[2021-01-06] MEDS: ENALAPRIL MALEATE 5 MG TABLET PO SCH (10:02)
[2021-01-06] MEDS: ENOXAPARIN NA (PORCINE) 40 MG/0.4 ML DISP.SYRIN SQ SCH (10:02)
[2021-01-06] MEDS: CEFTRIAXONE 1 GM in DEXTROSE 5%-WATER - 50 ML IVPB SCH (10:02)
[2021-01-06] MEDS: PANTOPRAZOLE 20 MG TABLET PO SCH (10:02)
[2021-01-06] MEDS: amLODIPine BESYLATE 10 MG TABLET (FP) PO SCH (10:02)
[2021-01-06 15:54] VITALS: BMI 40.8
[2021-01-06] MEDS ORDERED: ACETAMINOPHEN 1000 MG/100 ML VIAL (NON FORMULARY) IVPB ONE (18:33)
[2021-01-06] MEDS ORDERED: ACETAMINOPHEN 325 MG TABLET (FP) PO PRN (18:36)
[2021-01-06] MEDS ORDERED: ACETAMINOPHEN INJECTION 100 ML IVPB ONE (18:43)
[2021-01-06] MEDS: ATORVASTATIN CA 10 MG TABLET (FP) PO SCH (22:19)
[2021-01-06] MEDS: INSULIN (LEVEMIR) 100 UNITS/ML UNITS SQ SCH (22:19)
[2021-01-07] MEDS: INSULIN (LEVEMIR) 100 UNITS/ML UNITS SQ SCH ×2 (06:47→22:40)
[2021-01-07] MEDS: INSULIN SLIDING SCALE (NOVOLOG) 1 VIAL SQ SCH ×4 (06:48→22:41)
[2021-01-07] MEDS ORDERED: INSULIN (LEVEMIR) 100 UNITS/ML UNITS SQ SCH (07:00)
[2021-01-07 08:03] LABS: HEMATOCRIT 48.3 % (35.4-49); HEMOGLOBIN 16.1 GM/dL (11.7-16.9); MCH 29.8 pg (25.7-33.7); MCHC 33.4 g/dl (32.0-35.9); MEAN CELL VOLUME 89.2 fl (80-96); MEAN PLT VOLUME 9.8 fl (7.5-11.1); PLATELET COUNT 160 K/MM3 (134-434); RBC 5.41 M/mm3 (4.00-5.60); RDW 14.2 % (11.9-15.9); WHITE BLOOD COUNT 6.4 K/mm3 (4.0-10.0)
[2021-01-07 08:14] LABS: POTASSIUM 4.2 mmol/L (3.5-5.1)
[2021-01-07 08:16] LABS: ALBUMIN 3.4 g/dl (3.4-5.0); BLOOD UREA NITROGEN 11.6 mg/dL (7-18)
[2021-01-07 08:20] LABS: CALCIUM 8.8 mg/dL (8.5-10.1); PHOSPHOROUS 3.2 mg/dL (2.5-4.9)
[2021-01-07 08:21] LABS: BILIRUBIN,TOTAL 0.7 mg/dL (0.2-1); MAGNESIUM 1.9 mg/dL (1.8-2.4); TOT PROT 6.6 g/dl (6.4-8.2)
[2021-01-07] MEDS ORDERED: CEFTRIAXONE 1 GM in SODIUM CHLORIDE 50 ML IVPB SCH (10:00)
[2021-01-07] MEDS ORDERED: ACETAMINOPHEN 1000 MG/100 ML VIAL (NON FORMULARY) IVPB ONE (10:15)
[2021-01-07] MEDS ORDERED: SODIUM CHLORIDE 50 ML IVPB ONE (11:00)
[2021-01-07] MEDS ORDERED: cefTRIAXone SODIUM 1 GM VIAL ONE (11:00)
[2021-01-07] MEDS: ENALAPRIL MALEATE 5 MG TABLET PO SCH (11:03)
[2021-01-07] MEDS: PANTOPRAZOLE 20 MG TABLET PO SCH (11:03)
[2021-01-07] MEDS: MUPIROCIN 2% TOPICAL OINTMENT 22 GM TUBE TP SCH (11:03)
[2021-01-07] MEDS: amLODIPine BESYLATE 10 MG TABLET (FP) PO SCH (11:03)
[2021-01-07] MEDS: ACETAMINOPHEN 1000 MG/100 ML VIAL (NON FORMULARY) IVPB PRN (18:22)
[2021-01-07] MEDS: SUCRALFATE 1 GM TABLET (FP) PO SCH (18:58)
[2021-01-07] MEDS: ATORVASTATIN CA 10 MG TABLET (FP) PO SCH (22:41)
[2021-01-07] MEDS ORDERED: MELATONIN 5 MG TABLETS PO ONE (22:49)
[2021-01-08] MEDS: INSULIN SLIDING SCALE (NOVOLOG) 1 VIAL SQ SCH ×2 (06:39→10:57)
[2021-01-08] MEDS: INSULIN (LEVEMIR) 100 UNITS/ML UNITS SQ SCH (06:39)
[2021-01-08] MEDS: SUCRALFATE 1 GM TABLET (FP) PO SCH ×2 (06:39→10:56)
[2021-01-08 06:43] VITALS: BP 111/59; PULSE 80; TEMP 98.6
[2021-01-08 07:37] LABS: HEMATOCRIT 46.6 % (35.4-49); HEMOGLOBIN 15.9 GM/dL (11.7-16.9); MCH 30.2 pg (25.7-33.7); MCHC 34.2 g/dl (32.0-35.9); MEAN CELL VOLUME 88.5 fl (80-96); MEAN PLT VOLUME 10.3 fl (7.5-11.1); PLATELET COUNT 156 K/MM3 (134-434); RBC 5.26 M/mm3 (4.00-5.60); WHITE BLOOD COUNT 7.3 K/mm3 (4.0-10.0)
[2021-01-08 08:01] LABS: POTASSIUM 4.5 mmol/L (3.5-5.1)
[2021-01-08 08:03] LABS: CALCIUM 9.4 mg/dL (8.5-10.1)
[2021-01-08 08:04] LABS: ALBUMIN 3.4 g/dl (3.4-5.0); BLOOD UREA NITROGEN 15.7 mg/dL (7-18); MAGNESIUM 2.2 mg/dL (1.8-2.4)
[2021-01-08 08:08] LABS: BILIRUBIN,TOTAL 0.7 mg/dL (0.2-1); PHOSPHOROUS 3.1 mg/dL (2.5-4.9); TOT PROT 6.5 g/dl (6.4-8.2)
[2021-01-08] MEDS: ACETAMINOPHEN 1000 MG/100 ML VIAL (NON FORMULARY) IVPB PRN (09:00)
[2021-01-08] MEDS: ENALAPRIL MALEATE 5 MG TABLET PO SCH (09:00)
[2021-01-08] MEDS: amLODIPine BESYLATE 10 MG TABLET (FP) PO SCH (09:00)
[2021-01-08] MEDS: ENOXAPARIN NA (PORCINE) 40 MG/0.4 ML DISP.SYRIN SQ SCH (09:02)
[2021-01-08] MEDS: MUPIROCIN 2% TOPICAL OINTMENT 22 GM TUBE TP SCH (09:02)
[2021-01-08] MEDS ORDERED: PANTOPRAZOLE 40 MG TABLET PO SCH (10:00)
[2021-01-08] MEDS ORDERED: LACTOBACILLUS ACIDOPHILUS 1 TABLET PO SCH (10:00)
== END 2021-01-08 14:15 | disposition home or self-care (01) | DRG 392 ==
LOC: JER 19:08 → JERBED 01-02 00:01 → J5S 01-02 20:45 → J6WEST-2 01-04 12:17 → J7W 01-07 21:18
PROVIDERS: ADMIT Internal Medicine; ATTEND Internal Medicine
PROC: 0DB68ZX Excision of Stomach, Via Natural or Artificial Opening Endoscopic, Diagnostic (ICD-10-PCS; 2021-01-07)
PROC: 0DB58ZX Excision of Esophagus, Via Natural or Artificial Opening Endoscopic, Diagnostic (ICD-10-PCS; 2021-01-07)
PROC: 0DB98ZX Excision of Duodenum, Via Natural or Artificial Opening Endoscopic, Diagnostic (ICD-10-PCS; principal; 2021-01-07 13:00)
DX: K29.60 Other gastritis without bleeding (principal); F11.20 Opioid dependence, uncomplicated; Z68.41 Body mass index [BMI] 40.0-44.9, adult; L97.528 Non-pressure chronic ulcer of other part of left foot with other specified severity; I42.0 Dilated cardiomyopathy; I25.10 Atherosclerotic heart disease of native coronary artery without angina pectoris; K21.9 Gastro-esophageal reflux disease without esophagitis; F17.210 Nicotine dependence, cigarettes, uncomplicated; I45.10 Unspecified right bundle-branch block; R10.13 Epigastric pain; R16.1 Splenomegaly, not elsewhere classified; E66.01 Morbid (severe) obesity due to excess calories; F14.10 Cocaine abuse, uncomplicated; Z95.810 Presence of automatic (implantable) cardiac defibrillator; G47.33 Obstructive sleep apnea (adult) (pediatric); E11.40 Type 2 diabetes mellitus with diabetic neuropathy, unspecified; E11.621 Type 2 diabetes mellitus with foot ulcer; E11.65 Type 2 diabetes mellitus with hyperglycemia; K42.9 Umbilical hernia without obstruction or gangrene; Z95.0 Presence of cardiac pacemaker; Z89.422 Acquired absence of other left toe(s)
CPT/HCPCS: 36415; 70450-TC; 71045-TC-FY; 74177-TC; 74240-TC-FY; 80048; 80053; 80061; 81003; 82150; 82272; 82962; 83036; 83516; 83690; 83721; 83735; 84100; 84484; 85025; 85027; 85651; 86140; 87086; 87324; 87449; 88305-TC; 93005; 93010; 97116-GP; 97161-GP; 99285-25; C9803; J0131; U0003; U0005

== ENCOUNTER 2021-03-28 12:17 | Inpatient (IN) | payer OTHER ==
[2021-03-28] MEDS ORDERED: PIPERACILLIN/TAZOB 3.375 GM 3.375 GM in DEXTROSE 5%-WATER - 50 ML IVPB ONE (13:27)
[2021-03-28] MEDS ORDERED: VANCOMYCIN HCL 1,500 MG in DEXTROSE 5%-WATER - 500 ML IVPB ONE (13:27)
[2021-03-28] MEDS ORDERED: morphine CARPU-JECT 4 MG/1 ML DISP.SYRIN IVPUSH ONE ×2 (13:28→15:46)
[2021-03-28] MEDS ORDERED: morphine SULFATE 4 MG/ML VIAL ONE ×2 (13:43→16:29)
[2021-03-28] MEDS ORDERED: PIPERACILLIN/TAZOB 3.375 GM 3.375 GM/50 ML BAG IVPB ONE (13:43)
[2021-03-28 13:54] LABS: BASO % 0.8 % (0-2.0); HEMATOCRIT 45.3 % (35.4-49); HEMOGLOBIN 14.8 GM/dL (11.7-16.9); LYMPH % 13.6 % (8-40); MCH 28.9 pg (25.7-33.7); MCHC 32.6 g/dl (32.0-35.9); MEAN CELL VOLUME 88.7 fl (80-96); MEAN PLT VOLUME 9.5 fl (7.5-11.1); MONO % 6.5 % (3.8-10.2); NEUT % 77.1 % (42.8-82.8); PLATELET COUNT 171 10^3/uL (134-434); RBC 5.11 M/mm3 (4.00-5.60); RDW 15.3 % (11.9-15.9); WHITE BLOOD COUNT 12.3 K/mm3 (4.0-10.0)
[2021-03-28 13:55] LABS: INR 1.11 (0.83-1.09); PROTHROMBIN TIME (PATIENT) 13.6 SEC (9.7-13.0)
[2021-03-28] MEDS ORDERED: ONDANSETRON 4 MG/2 ML VIAL IVPB ONE (13:55)
[2021-03-28] MEDS ORDERED: ONDANSETRON 4 MG/2 ML VIAL ONE ×2 (13:56→16:12)
[2021-03-28 13:58] LABS: ACTIVATED PTT 31.2 SECONDS (25.2-36.5)
[2021-03-28 14:08] LABS: CHLORIDE 100 mmol/L (98-107); SODIUM 136 mmol/L (136-145)
[2021-03-28 14:10] LABS: ANION GAP 6 MMOL/L (8-16); CALCIUM 8.9 mg/dL (8.5-10.1); CO2 30 mmol/L (21-32); GLUCOSE,RANDOM 143 mg/dL (74-106); MAGNESIUM 2.1 mg/dL (1.8-2.4)
[2021-03-28 14:13] LABS: SGPT/ALT 25 U/L (13-61)
[2021-03-28 14:14] LABS: SGOT/AST 34 U/L (15-37)
[2021-03-28 14:15] LABS: TOT PROT 7.7 g/dl (6.4-8.2)
[2021-03-28 14:16] LABS: ALK PHOS 109 U/L (45-117)
[2021-03-28 14:19] LABS: N-TERMINAL BNP 481.3 pg/ml (5-125)
[2021-03-28 14:31] LABS: ERYTHROCYTE SEDIMENTATION RATE 55 mm/hr (0-20)
[2021-03-28] MEDS ORDERED: ONDANSETRON 4 MG/2 ML VIAL IVPUSH ONE (15:46)
[2021-03-28] MEDS ORDERED: MORPHINE SULFATE 2 MG/ML VIAL IVPUSH ONE (18:22)
[2021-03-28] MEDS ORDERED: TRIMETHOBENZAMIDE HCL 200MG/2ML INJ IM PRN (18:33)
[2021-03-28] MEDS ORDERED: MORPHINE SULFATE 2 MG/ML VIAL ONE (18:33)
[2021-03-28] MEDS ORDERED: KETOROLAC TROMETHAMINE 15 MG/ML VIAL IVPUSH ONE (18:33)
[2021-03-28 18:59] LABS: EPI CELLS >36 /uL (0-25.1); HYALINE CASTS 3 /uL (0-3.1); PH,URINE 7.5 (5.0-8.0); URINE APPEARANCE CLEAR; URINE BACTERIA 265 /uL (0-1359); URINE BILIRUBIN NEGATIVE (NEGATIVE); URINE COLOR DK YELLOW; URINE GLUCOSE (UA) NEGATIVE (NEGATIVE); URINE KETONE TRACE (NEGATIVE); URINE LEUK ESTERASE NEGATIVE (NEGATIVE); URINE NITRITE NEGATIVE (NEGATIVE); URINE PROTEIN 3+ (NEGATIVE); URINE RBC 29 /uL (0-23.9); URINE WBC 13 /uL (0-25.8)
[2021-03-28] MEDS ORDERED: ENALAPRIL MALEATE 5 MG TABLET PO SCH (20:14)
[2021-03-28] MEDS ORDERED: INSULIN (NOVOLOG) ASPART 100 UNITS/ML 10ML VIAL ONE (21:08)
[2021-03-28] MEDS: ATORVASTATIN CA 10 MG TABLET (FP) PO SCH (21:19)
[2021-03-28] MEDS: PREGABALIN 100 MG CAPSULE PO SCH (21:19)
[2021-03-28] MEDS: DOCUSATE SODIUM 100 MG CAPSULE (FP) PO SCH (21:19)
[2021-03-28] MEDS: ENOXAPARIN NA (PORCINE) 40 MG/0.4 ML DISP.SYRIN SQ SCH (21:21)
[2021-03-28] MEDS: INSULIN SLIDING SCALE (NOVOLOG) 1 VIAL SQ SCH (21:21)
[2021-03-28] MEDS ORDERED: traZODone HCL 150 MG TABLET PO SCH (22:00)
[2021-03-28] MEDS: MORPHINE SULFATE 2 MG/ML VIAL IVPUSH PRN (22:55)
[2021-03-28 23:30] VITALS: BMI 41.5
[2021-03-29] MEDS ORDERED: DEXTROSE 5%-WATER - 50 ML IVPB ONE ×3 (01:05→14:11)
[2021-03-29] MEDS ORDERED: PIPERACILLIN/TAZOBACTAM 3.375 GM VIAL IVPB ONE ×3 (01:05→14:11)
[2021-03-29] MEDS: PIPERACILLIN/TAZOB 3.375 GM 3.375 GM in DEXTROSE 5%-WATER - 50 ML IVPB SCH ×2 (01:23→09:22)
[2021-03-29] MEDS ORDERED: PIPERACILLIN/TAZOB 3.375 GM 3.375 GM in DEXTROSE 5%-WATER - 50 ML IVPB SCH (02:00)
[2021-03-29] MEDS: VANCOMYCIN PREMIX 1.5 GM 1,500 MG/300 ML BAG IVPB SCH ×2 (02:05→14:27)
[2021-03-29] MEDS: MORPHINE SULFATE 2 MG/ML VIAL IVPUSH PRN ×4 (05:45→22:01)
[2021-03-29] MEDS: INSULIN (LEVEMIR) 100 UNITS/ML UNITS SQ SCH (06:00)
[2021-03-29] MEDS: INSULIN SLIDING SCALE (NOVOLOG) 1 VIAL SQ SCH ×4 (06:01→21:19)
[2021-03-29] MEDS ORDERED: INSULIN (NOVOLOG) ASPART 100 UNITS/ML 10ML VIAL ONE ×2 (06:49→08:09)
[2021-03-29 08:15] LABS: HEMATOCRIT 41.8 % (35.4-49); HEMOGLOBIN 13.6 GM/dL (11.7-16.9); MCH 29.2 pg (25.7-33.7); MCHC 32.6 g/dl (32.0-35.9); MEAN CELL VOLUME 89.6 fl (80-96); MEAN PLT VOLUME 9.8 fl (7.5-11.1); PLATELET COUNT 157 10^3/uL (134-434); RBC 4.66 M/mm3 (4.00-5.60); RDW 15.3 % (11.9-15.9); WHITE BLOOD COUNT 8.4 K/mm3 (4.0-10.0)
[2021-03-29 08:17] LABS: ALBUMIN 2.7 g/dl (3.4-5.0); BLOOD UREA NITROGEN 12.2 mg/dL (7-18); CALCIUM 8.1 mg/dL (8.5-10.1)
[2021-03-29 08:21] LABS: CREATININE 1.1 mg/dL (0.55-1.3); PHOSPHOROUS 3.2 mg/dL (2.5-4.9)
[2021-03-29 08:22] LABS: TOT PROT 6.8 g/dl (6.4-8.2)
[2021-03-29] MEDS: KETOROLAC TROMETHAMINE 15 MG/ML VIAL IVPUSH PRN ×2 (09:15→15:48)
[2021-03-29] MEDS: ENOXAPARIN NA (PORCINE) 40 MG/0.4 ML DISP.SYRIN SQ SCH ×2 (09:23→21:19)
[2021-03-29] MEDS: DOCUSATE SODIUM 100 MG CAPSULE (FP) PO SCH ×2 (09:23→21:18)
[2021-03-29] MEDS: PREGABALIN 100 MG CAPSULE PO SCH ×2 (09:23→21:18)
[2021-03-29] MEDS: FUROSEMIDE 40 MG TABLET (FP) PO SCH (09:23)
[2021-03-29] MEDS: amLODIPine BESYLATE 10 MG TABLET (FP) PO SCH (09:23)
[2021-03-29] MEDS: ENALAPRIL MALEATE 10 MG TABLET PO SCH (09:26)
[2021-03-29] MEDS ORDERED: ENALAPRIL MALEATE 5 MG TABLET PO SCH ×2 (10:00)
[2021-03-29] MEDS ORDERED: ENOXAPARIN NA (PORCINE) 40 MG/0.4 ML DISP.SYRIN SQ SCH (10:00)
[2021-03-29] MEDS ORDERED: MEROPENEM 1 GM VIAL (RESTRICTED TO ID) IVPB ONE ×2 (16:32→23:46)
[2021-03-29] MEDS ORDERED: DEXTROSE 5%-WATER 100 ML IVPB ONE ×2 (16:32→23:47)
[2021-03-29] MEDS: POLYETHYLENE GLYCOL (HEALTHYLAX) 3350 17 GM PACKET PO SCH (16:58)
[2021-03-29] MEDS: MEROPENEM 1 GM in DEXTROSE 5%-WATER 100 ML IVPB SCH ×2 (17:06→17:21)
[2021-03-29] MEDS: traZODone HCL 100 MG TABLET (FP) PO SCH (21:19)
[2021-03-29] MEDS: ATORVASTATIN CA 10 MG TABLET (FP) PO SCH (21:19)
[2021-03-29] MEDS ORDERED: diphenhydrAMINE HCL 25 MG CAPSULE (FP) PO ONE (23:14)
[2021-03-30] MEDS: MEROPENEM 1 GM in DEXTROSE 5%-WATER 100 ML IVPB SCH ×4 (01:09→17:58)
[2021-03-30] MEDS: KETOROLAC TROMETHAMINE 15 MG/ML VIAL IVPUSH PRN ×2 (01:36→20:13)
[2021-03-30] MEDS: VANCOMYCIN HCL 1,500 MG in DEXTROSE 5%-WATER - 500 ML IVPB SCH ×2 (01:59→15:25)
[2021-03-30] MEDS: INSULIN (LEVEMIR) 100 UNITS/ML UNITS SQ SCH (06:00)
[2021-03-30] MEDS: INSULIN SLIDING SCALE (NOVOLOG) 1 VIAL SQ SCH ×5 (06:02→23:12)
[2021-03-30] MEDS: MORPHINE SULFATE 2 MG/ML VIAL IVPUSH PRN ×4 (06:03→22:07)
[2021-03-30 07:44] LABS: BASO % 0.5 % (0-2.0); EOS % 4.4 % (0-4.5); HEMATOCRIT 41.9 % (35.4-49); HEMOGLOBIN 13.6 GM/dL (11.7-16.9); LYMPH % 29.8 % (8-40); MCHC 32.5 g/dl (32.0-35.9); MEAN CELL VOLUME 89.2 fl (80-96); MEAN PLT VOLUME 9.8 fl (7.5-11.1); MONO % 5.6 % (3.8-10.2); NEUT % 59.7 % (42.8-82.8); PLATELET COUNT 167 10^3/uL (134-434); RBC 4.69 M/mm3 (4.00-5.60); WHITE BLOOD COUNT 8.5 K/mm3 (4.0-10.0)
[2021-03-30 07:49] LABS: ALBUMIN 2.6 g/dl (3.4-5.0); BLOOD UREA NITROGEN 18.7 mg/dL (7-18); CALCIUM 8.5 mg/dL (8.5-10.1)
[2021-03-30 07:50] LABS: MAGNESIUM 2.3 mg/dL (1.8-2.4)
[2021-03-30 07:51] LABS: BILIRUBIN,TOTAL 0.5 mg/dL (0.2-1); TOT PROT 6.7 g/dl (6.4-8.2)
[2021-03-30 07:52] LABS: CREATININE 1.1 mg/dL (0.55-1.3)
[2021-03-30] MEDS ORDERED: MEROPENEM 1 GM VIAL (RESTRICTED TO ID) IVPB ONE ×2 (09:39→17:26)
[2021-03-30] MEDS ORDERED: DEXTROSE 5%-WATER 100 ML IVPB ONE ×2 (09:39→17:27)
[2021-03-30] MEDS ORDERED: PT OWN MED DRAWER 7, Y5N ONE (09:40)
[2021-03-30] MEDS ORDERED: LIDOCAINE HCL 1%, 10 MG/ML (20ML VIAL) INF ONE (10:14)
[2021-03-30] MEDS ORDERED: LIDOCAINE HCL 1%, 10 MG/ML (20ML VIAL) ONE (10:15)
[2021-03-30] MEDS: POLYETHYLENE GLYCOL (HEALTHYLAX) 3350 17 GM PACKET PO SCH (10:50)
[2021-03-30] MEDS: ENALAPRIL MALEATE 10 MG TABLET PO SCH (10:50)
[2021-03-30] MEDS: DOCUSATE SODIUM 100 MG CAPSULE (FP) PO SCH ×2 (10:51→21:00)
[2021-03-30] MEDS: amLODIPine BESYLATE 10 MG TABLET (FP) PO SCH (10:51)
[2021-03-30] MEDS: FUROSEMIDE 40 MG TABLET (FP) PO SCH (10:51)
[2021-03-30] MEDS: PREGABALIN 100 MG CAPSULE PO SCH ×2 (10:51→21:01)
[2021-03-30] MEDS: ENOXAPARIN NA (PORCINE) 40 MG/0.4 ML DISP.SYRIN SQ SCH ×2 (10:52→21:01)
[2021-03-30] MEDS ORDERED: INSULIN (NOVOLOG) ASPART 100 UNITS/ML 10ML VIAL ONE ×2 (10:57→21:03)
[2021-03-30] MEDS ORDERED: traZODone HCL 50 MG TABLET (FP) ONE (20:28)
[2021-03-30] MEDS: ATORVASTATIN CA 10 MG TABLET (FP) PO SCH (20:59)
[2021-03-30] MEDS: traZODone HCL 100 MG TABLET (FP) PO SCH (21:00)
[2021-03-30] MEDS ORDERED: ACETAMINOPHEN 1000 MG/100 ML VIAL (NON FORMULARY) IVPB ONE (21:29)
[2021-03-31] MEDS ORDERED: MEROPENEM 1 GM VIAL (RESTRICTED TO ID) IVPB ONE ×3 (02:16→17:29)
[2021-03-31] MEDS ORDERED: DEXTROSE 5%-WATER 100 ML IVPB ONE ×3 (02:16→17:30)
[2021-03-31] MEDS: MEROPENEM 1 GM in DEXTROSE 5%-WATER 100 ML IVPB SCH ×3 (02:22→18:01)
[2021-03-31] MEDS ORDERED: PT OWN MED DRAWER 7, Y5N ONE ×2 (03:02→03:09)
[2021-03-31] MEDS: VANCOMYCIN HCL 1,500 MG in DEXTROSE 5%-WATER - 500 ML IVPB SCH ×2 (03:15→14:31)
[2021-03-31] MEDS: MORPHINE SULFATE 2 MG/ML VIAL IVPUSH PRN ×2 (05:54→09:57)
[2021-03-31] MEDS: INSULIN (LEVEMIR) 100 UNITS/ML UNITS SQ SCH (06:00)
[2021-03-31] MEDS: INSULIN SLIDING SCALE (NOVOLOG) 1 VIAL SQ SCH ×4 (06:00→21:47)
[2021-03-31] MEDS: INSULIN (NOVOLOG MIX 70/30) 100 UNITS/ML MDV SQ SCH ×2 (06:00→16:29)
[2021-03-31 07:30] LABS: HEMATOCRIT 41.9 % (35.4-49); HEMOGLOBIN 13.9 GM/dL (11.7-16.9); MCH 29.5 pg (25.7-33.7); MCHC 33.3 g/dl (32.0-35.9); MEAN CELL VOLUME 88.6 fl (80-96); MEAN PLT VOLUME 9.2 fl (7.5-11.1); PLATELET COUNT 185 10^3/uL (134-434); RBC 4.73 M/mm3 (4.00-5.60); RDW 15.3 % (11.9-15.9); WHITE BLOOD COUNT 7.5 K/mm3 (4.0-10.0)
[2021-03-31 08:19] LABS: CALCIUM 8.3 mg/dL (8.5-10.1)
[2021-03-31 08:20] LABS: MAGNESIUM 2.3 mg/dL (1.8-2.4)
[2021-03-31] MEDS: ENALAPRIL MALEATE 10 MG TABLET PO SCH (09:50)
[2021-03-31] MEDS: PREGABALIN 100 MG CAPSULE PO SCH ×2 (09:50→21:59)
[2021-03-31] MEDS: ENOXAPARIN NA (PORCINE) 40 MG/0.4 ML DISP.SYRIN SQ SCH ×2 (09:51→21:59)
[2021-03-31] MEDS: POLYETHYLENE GLYCOL (HEALTHYLAX) 3350 17 GM PACKET PO SCH (09:53)
[2021-03-31] MEDS: amLODIPine BESYLATE 10 MG TABLET (FP) PO SCH (09:54)
[2021-03-31] MEDS: FUROSEMIDE 40 MG TABLET (FP) PO SCH (09:54)
[2021-03-31] MEDS: DOCUSATE SODIUM 100 MG CAPSULE (FP) PO SCH ×2 (09:54→21:59)
[2021-03-31] MEDS: KETOROLAC TROMETHAMINE 15 MG/ML VIAL IVPUSH PRN ×2 (11:49→21:57)
[2021-03-31] MEDS ORDERED: MORPHINE SULFATE 2 MG/ML VIAL IM PRN (15:20)
[2021-03-31] MEDS ORDERED: MORPHINE SULFATE 2 MG/ML VIAL IVPUSH PRN ×2 (15:22→15:29)
[2021-03-31] MEDS ORDERED: traZODone HCL 50 MG TABLET (FP) ONE (21:41)
[2021-03-31] MEDS ORDERED: INSULIN (NOVOLOG) ASPART 100 UNITS/ML 10ML VIAL ONE (21:41)
[2021-03-31] MEDS: traZODone HCL 100 MG TABLET (FP) PO SCH (21:59)
[2021-03-31] MEDS: ATORVASTATIN CA 10 MG TABLET (FP) PO SCH (22:00)
[2021-04-01] MEDS ORDERED: MEROPENEM 1 GM VIAL (RESTRICTED TO ID) IVPB ONE ×3 (02:37→16:33)
[2021-04-01] MEDS ORDERED: DEXTROSE 5%-WATER 100 ML IVPB ONE ×3 (02:37→16:33)
[2021-04-01] MEDS: MEROPENEM 1 GM in DEXTROSE 5%-WATER 100 ML IVPB SCH ×3 (02:40→18:07)
[2021-04-01] MEDS ORDERED: PT OWN MED DRAWER 7, Y5N ONE (03:27)
[2021-04-01] MEDS: VANCOMYCIN HCL 1,500 MG in DEXTROSE 5%-WATER - 500 ML IVPB SCH ×2 (03:28→15:33)
[2021-04-01] MEDS: KETOROLAC TROMETHAMINE 15 MG/ML VIAL IVPUSH PRN ×3 (03:43→18:28)
[2021-04-01] MEDS ORDERED: INSULIN (NOVOLOG) ASPART 100 UNITS/ML 10ML VIAL ONE (06:42)
[2021-04-01] MEDS: INSULIN (NOVOLOG MIX 70/30) 100 UNITS/ML MDV SQ SCH ×2 (06:46→16:46)
[2021-04-01] MEDS: INSULIN (LEVEMIR) 100 UNITS/ML UNITS SQ SCH (06:47)
[2021-04-01] MEDS: INSULIN SLIDING SCALE (NOVOLOG) 1 VIAL SQ SCH ×4 (06:49→21:48)
[2021-04-01 07:53] LABS: HEMATOCRIT 38.9 % (35.4-49); HEMOGLOBIN 13.1 GM/dL (11.7-16.9); MCH 29.7 pg (25.7-33.7); MCHC 33.6 g/dl (32.0-35.9); MEAN CELL VOLUME 88.3 fl (80-96); PLATELET COUNT 175 10^3/uL (134-434); RDW 15.2 % (11.9-15.9); WHITE BLOOD COUNT 6.1 K/mm3 (4.0-10.0)
[2021-04-01 08:13] LABS: BLOOD UREA NITROGEN 16.6 mg/dL (7-18); MAGNESIUM 2.2 mg/dL (1.8-2.4)
[2021-04-01 08:16] LABS: CREATININE 0.9 mg/dL (0.55-1.3)
[2021-04-01] MEDS: morphine SULFATE 4 MG/ML VIAL IVPUSH PRN ×4 (08:57→21:36)
[2021-04-01] MEDS: amLODIPine BESYLATE 10 MG TABLET (FP) PO SCH (09:07)
[2021-04-01] MEDS: ENALAPRIL MALEATE 10 MG TABLET PO SCH (09:07)
[2021-04-01] MEDS: POLYETHYLENE GLYCOL (HEALTHYLAX) 3350 17 GM PACKET PO SCH (09:07)
[2021-04-01] MEDS: DOCUSATE SODIUM 100 MG CAPSULE (FP) PO SCH ×2 (09:07→21:38)
[2021-04-01] MEDS: FUROSEMIDE 40 MG TABLET (FP) PO SCH (09:07)
[2021-04-01] MEDS: PREGABALIN 100 MG CAPSULE PO SCH ×2 (09:07→21:38)
[2021-04-01] MEDS: ENOXAPARIN NA (PORCINE) 40 MG/0.4 ML DISP.SYRIN SQ SCH ×2 (09:08→21:37)
[2021-04-01] MEDS ORDERED: DEXTROSE 50%-WATER - 25 GM/50 ML VIAL IVPUSH PRN (11:20)
[2021-04-01] MEDS: NICOTINE 21 MG/24 HOURS TOPICAL PATCH TD SCH (11:52)
[2021-04-01] MEDS ORDERED: traZODone HCL 50 MG TABLET (FP) ONE (20:30)
[2021-04-01] MEDS: ATORVASTATIN CA 10 MG TABLET (FP) PO SCH (21:38)
[2021-04-01] MEDS: traZODone HCL 100 MG TABLET (FP) PO SCH (21:38)
[2021-04-02] MEDS ORDERED: DEXTROSE 5%-WATER 100 ML IVPB ONE ×2 (01:04→09:00)
[2021-04-02] MEDS ORDERED: MEROPENEM 1 GM VIAL (RESTRICTED TO ID) IVPB ONE ×2 (01:04→08:59)
[2021-04-02] MEDS: MEROPENEM 1 GM in DEXTROSE 5%-WATER 100 ML IVPB SCH ×3 (01:08→17:30)
[2021-04-02] MEDS: KETOROLAC TROMETHAMINE 15 MG/ML VIAL IVPUSH PRN (01:11)
[2021-04-02 01:21] VITALS: BP 143/69; PULSE 70; TEMP 97.9
[2021-04-02] MEDS: VANCOMYCIN HCL 1,500 MG in DEXTROSE 5%-WATER - 500 ML IVPB SCH ×2 (02:29→16:18)
[2021-04-02] MEDS ORDERED: diphenhydrAMINE HCL 25 MG CAPSULE (FP) PO ONE (02:53)
[2021-04-02] MEDS: INSULIN SLIDING SCALE (NOVOLOG) 1 VIAL SQ SCH ×3 (06:07→17:30)
[2021-04-02] MEDS: INSULIN (LEVEMIR) 100 UNITS/ML UNITS SQ SCH (06:08)
[2021-04-02] MEDS: INSULIN (NOVOLOG MIX 70/30) 100 UNITS/ML MDV SQ SCH ×2 (06:11→17:30)
[2021-04-02] MEDS: morphine SULFATE 4 MG/ML VIAL IVPUSH PRN ×2 (06:17→14:50)
[2021-04-02] MEDS: DOCUSATE SODIUM 100 MG CAPSULE (FP) PO SCH (09:44)
[2021-04-02] MEDS: ENOXAPARIN NA (PORCINE) 40 MG/0.4 ML DISP.SYRIN SQ SCH (09:44)
[2021-04-02] MEDS: FUROSEMIDE 40 MG TABLET (FP) PO SCH (09:45)
[2021-04-02] MEDS: amLODIPine BESYLATE 10 MG TABLET (FP) PO SCH (09:45)
[2021-04-02] MEDS: ENALAPRIL MALEATE 10 MG TABLET PO SCH (09:45)
[2021-04-02] MEDS: PREGABALIN 100 MG CAPSULE PO SCH (09:45)
[2021-04-02] MEDS: NICOTINE 21 MG/24 HOURS TOPICAL PATCH TD SCH (09:45)
[2021-04-02] MEDS: POLYETHYLENE GLYCOL (HEALTHYLAX) 3350 17 GM PACKET PO SCH (09:46)
[2021-04-02] MEDS ORDERED: ACETAMINOPHEN 325 MG TABLET (FP) PO PRN (21:17)
== END 2021-04-02 19:30 | DRG 638 ==
LOC: JER 12:17 → JERBED 14:20 → J7W 19:01
PROVIDERS: ADMIT Internal Medicine; ATTEND Student in an Organized Health Care Education/Training Program
PROC: 0H96XZX Drainage of Back Skin, External Approach, Diagnostic (ICD-10-PCS; principal; 2021-03-30)
DX: E11.622 Type 2 diabetes mellitus with other skin ulcer (principal); L03.312 Cellulitis of back [any part except buttock and flank]; E46 Unspecified protein-calorie malnutrition; Z68.41 Body mass index [BMI] 40.0-44.9, adult; L97.429 Non-pressure chronic ulcer of left heel and midfoot with unspecified severity; I13.0 Hypertensive heart and chronic kidney disease with heart failure and stage 1 through stage 4 chronic kidney disease, or unspecified chronic kidney disease; L02.212 Cutaneous abscess of back [any part, except buttock and flank]; L97.529 Non-pressure chronic ulcer of other part of left foot with unspecified severity; E11.621 Type 2 diabetes mellitus with foot ulcer; E78.5 Hyperlipidemia, unspecified; E66.01 Morbid (severe) obesity due to excess calories; E88.09 Other disorders of plasma-protein metabolism, not elsewhere classified; R80.9 Proteinuria, unspecified; Z95.0 Presence of cardiac pacemaker; F17.210 Nicotine dependence, cigarettes, uncomplicated; Z71.3 Dietary counseling and surveillance; D72.829 Elevated white blood cell count, unspecified; G47.33 Obstructive sleep apnea (adult) (pediatric); A49.02 Methicillin resistant Staphylococcus aureus infection, unspecified site; Z89.422 Acquired absence of other left toe(s); E11.22 Type 2 diabetes mellitus with diabetic chronic kidney disease; N18.9 Chronic kidney disease, unspecified; I50.9 Heart failure, unspecified; I25.10 Atherosclerotic heart disease of native coronary artery without angina pectoris; Z79.4 Long term (current) use of insulin; E11.65 Type 2 diabetes mellitus with hyperglycemia; E11.21 Type 2 diabetes mellitus with diabetic nephropathy
CPT/HCPCS: 36415; 71045-TC-FY; 73610-TC-LT-FY; 73630-TC-LT; 76882-TC-RT-FY; 78315-TC; 80048; 80053; 81003; 82550; 82962; 83036; 83735; 83880; 84100; 84484; 85025; 85027; 85610; 85651; 85730; 86140; 87040; 87070; 87086; 87186; 87205; 93005; 93010; 97116-GP; 97162-GP; 99285-25; A9503; C9803; J0131; U0003; U0005

== ENCOUNTER 2021-11-16 10:35 | Inpatient (IN) | payer OTHER ==
[2021-11-16] MEDS ORDERED: MEROPENEM 1 GM in DEXTROSE 5%-WATER 100 ML IVPB ONE (11:58)
[2021-11-16 15:44] LABS: BASO % 0.4 % (0-2.0); EOS % 2.4 % (0-4.5); HEMATOCRIT 40.8 % (35.4-49); HEMOGLOBIN 13.4 GM/dL (11.7-16.9); LYMPH % 25.8 % (8-40); MCH 28.3 pg (25.7-33.7); MCHC 32.9 g/dl (32.0-35.9); MEAN CELL VOLUME 86.2 fl (80-96); MEAN PLT VOLUME 8.5 fl (7.5-11.1); NEUT % 65.4 % (42.8-82.8); PLATELET COUNT 241 10^3/uL (134-434); RBC 4.73 M/mm3 (4.00-5.60); RDW 16.5 % (11.9-15.9); WHITE BLOOD COUNT 9.6 K/mm3 (4.0-10.0)
[2021-11-16 15:52] LABS: INR 1.11 (0.83-1.09); PROTHROMBIN TIME (PATIENT) 12.8 SEC (9.7-13.0)
[2021-11-16 15:54] LABS: ACTIVATED PTT 33.7 SECONDS (25.2-36.5)
[2021-11-16 16:07] LABS: ALBUMIN 3.1 g/dl (3.4-5.0); BLOOD UREA NITROGEN 10.2 mg/dL (7-18)
[2021-11-16 16:09] LABS: CREATININE 1.2 mg/dL (0.55-1.3)
[2021-11-16 16:11] LABS: BILIRUBIN,TOTAL 0.3 mg/dL (0.2-1); TOT PROT 7.9 g/dl (6.4-8.2)
[2021-11-16] MEDS ORDERED: VANCOMYCIN HCL 1,500 MG in DEXTROSE 5%-WATER - 500 ML IVPB SCH (16:45)
[2021-11-16] MEDS ORDERED: VANCOMYCIN PREMIX 1.5 GM 1,500 MG/300 ML BAG IVPB SCH (17:00)
[2021-11-16] MEDS ORDERED: VANCOMYCIN 1 GRAM (PRE-DOCKED) 1,000 MG/250 ML BAG IVPB ONE (17:02)
[2021-11-16] MEDS ORDERED: VANCOMYCIN 500 MG VIAL (RESTRICTED TO ID ONLY) ONE (17:02)
[2021-11-16] MEDS ORDERED: traMADol HCL 50 MG TABLET ONE (21:14)
[2021-11-16] MEDS: traMADol HCL 50 MG TABLET PO PRN (21:18)
[2021-11-16] MEDS ORDERED: CEFEPIME HCL/D5W 1 GM/50 ML BAG IVPB SCH (22:00)
[2021-11-16] MEDS ORDERED: INSULIN (LEVEMIR) 100 UNITS/ML UNITS SQ SCH (22:00)
[2021-11-16] MEDS ORDERED: CEFEPIME 1 GM/100 ML BAG IVPB ONE (23:13)
[2021-11-16] MEDS ORDERED: ATORVASTATIN CA 10 MG TABLET (FP) ONE (23:13)
[2021-11-16] MEDS: ATORVASTATIN CA 10 MG TABLET (FP) PO SCH (23:23)
[2021-11-16] MEDS: CEFEPIME 1 GM in DEXTROSE 5%-WATER 100 ML IVPB SCH (23:23)
[2021-11-16] MEDS ORDERED: PREGABALIN 100 MG CAPSULE ONE (23:28)
[2021-11-16] MEDS: PREGABALIN 100 MG CAPSULE PO SCH (23:30)
[2021-11-16] MEDS: INSULIN SLIDING SCALE (NOVOLOG) 1 VIAL SQ SCH (23:30)
[2021-11-17 04:47] VITALS: BMI 39.9
[2021-11-17] MEDS: traMADol HCL 50 MG TABLET PO PRN ×3 (05:25→22:06)
[2021-11-17] MEDS: INSULIN SLIDING SCALE (NOVOLOG) 1 VIAL SQ SCH ×4 (06:05→22:07)
[2021-11-17] MEDS ORDERED: DEXTROSE 5%-WATER 100 ML IVPB ONE (10:02)
[2021-11-17] MEDS ORDERED: CEFEPIME HCL 1 GM VIAL (RESTRICTED TO ID) ONE (10:02)
[2021-11-17] MEDS: CEFEPIME 1 GM in DEXTROSE 5%-WATER 100 ML IVPB SCH (10:07)
[2021-11-17] MEDS: PREGABALIN 100 MG CAPSULE PO SCH ×2 (10:07→22:06)
[2021-11-17] MEDS: DULoxetine HCL 30 MG CAPSULE.DR PO SCH (10:07)
[2021-11-17] MEDS: FAMOTIDINE 20 MG TABLET PO SCH (10:07)
[2021-11-17] MEDS: NICOTINE 14 MG/24 HOURS TOPICAL PATCH TD SCH (10:07)
[2021-11-17] MEDS: FUROSEMIDE 40 MG TABLET (FP) PO SCH (10:07)
[2021-11-17] MEDS ORDERED: INSULIN (NOVOLOG) ASPART 100 UNITS/ML 10ML VIAL ONE (12:03)
[2021-11-17] MEDS: VANCOMYCIN/WATER BAGS 1,250 MG/250 ML BAG IVPB SCH (14:44)
[2021-11-17] MEDS ORDERED: PIPERACILLIN/TAZOBACTAM 3.375 GM VIAL IVPB ONE (19:43)
[2021-11-17] MEDS ORDERED: DEXTROSE 5%-WATER - 50 ML IVPB ONE (19:44)
[2021-11-17] MEDS: PIPERACILLIN/TAZOB 3.375 GM 3.375 GM in DEXTROSE 5%-WATER - 50 ML IVPB SCH (19:44)
[2021-11-17] MEDS: COLLAGENASE CLOSTRIDIUM HIST. 30 GRAMS TUBE TP SCH (19:48)
[2021-11-17] MEDS: INSULIN (LEVEMIR) 100 UNITS/ML UNITS SQ SCH (22:06)
[2021-11-17] MEDS: ATORVASTATIN CA 10 MG TABLET (FP) PO SCH (22:06)
[2021-11-18] MEDS ORDERED: DEXTROSE 5%-WATER - 50 ML IVPB ONE ×3 (01:03→17:09)
[2021-11-18] MEDS ORDERED: PIPERACILLIN/TAZOBACTAM 3.375 GM VIAL IVPB ONE ×3 (01:03→17:09)
[2021-11-18] MEDS: PIPERACILLIN/TAZOB 3.375 GM 3.375 GM in DEXTROSE 5%-WATER - 50 ML IVPB SCH ×3 (01:16→17:18)
[2021-11-18] MEDS: VANCOMYCIN/WATER BAGS 1,250 MG/250 ML BAG IVPB SCH ×2 (01:17→12:30)
[2021-11-18] MEDS: INSULIN SLIDING SCALE (NOVOLOG) 1 VIAL SQ SCH ×4 (06:01→21:24)
[2021-11-18] MEDS ORDERED: INSULIN (LEVEMIR) 100 UNITS/ML UNITS SQ SCH (07:00)
[2021-11-18] MEDS: traMADol HCL 50 MG TABLET PO PRN ×2 (08:50→17:17)
[2021-11-18 09:02] LABS: BASO % 0.6 % (0-2.0); HEMATOCRIT 40.6 % (35.4-49); MCH 27.9 pg (25.7-33.7); MEAN CELL VOLUME 87.2 fl (80-96); MEAN PLT VOLUME 8.7 fl (7.5-11.1); NEUT % 62.4 % (42.8-82.8); PLATELET COUNT 237 10^3/uL (134-434); RBC 4.66 M/mm3 (4.00-5.60); RDW 16.4 % (11.9-15.9); WHITE BLOOD COUNT 7.7 K/mm3 (4.0-10.0)
[2021-11-18 09:19] LABS: CALCIUM 9.2 mg/dL (8.5-10.1)
[2021-11-18 09:20] LABS: BLOOD UREA NITROGEN 14.3 mg/dL (7-18)
[2021-11-18] MEDS: PREGABALIN 100 MG CAPSULE PO SCH ×2 (10:02→21:23)
[2021-11-18] MEDS: FUROSEMIDE 40 MG TABLET (FP) PO SCH (10:02)
[2021-11-18] MEDS: FAMOTIDINE 20 MG TABLET PO SCH (10:02)
[2021-11-18] MEDS: DULoxetine HCL 30 MG CAPSULE.DR PO SCH (10:03)
[2021-11-18] MEDS: NICOTINE 14 MG/24 HOURS TOPICAL PATCH TD SCH (10:03)
[2021-11-18] MEDS: COLLAGENASE CLOSTRIDIUM HIST. 30 GRAMS TUBE TP SCH (12:30)
[2021-11-18] MEDS ORDERED: ACETAMINOPHEN 1000 MG/100 ML BAG IVPB ONE (18:03)
[2021-11-18] MEDS: INSULIN (LEVEMIR) 100 UNITS/ML UNITS SQ SCH (21:23)
[2021-11-18] MEDS: ATORVASTATIN CA 10 MG TABLET (FP) PO SCH (21:23)
[2021-11-19] MEDS ORDERED: DEXTROSE 5%-WATER - 50 ML IVPB ONE ×3 (00:57→16:08)
[2021-11-19] MEDS ORDERED: PIPERACILLIN/TAZOBACTAM 3.375 GM VIAL IVPB ONE ×3 (00:57→16:08)
[2021-11-19] MEDS: PIPERACILLIN/TAZOB 3.375 GM 3.375 GM in DEXTROSE 5%-WATER - 50 ML IVPB SCH ×3 (01:24→17:48)
[2021-11-19] MEDS: VANCOMYCIN/WATER BAGS 1,250 MG/250 ML BAG IVPB SCH ×2 (01:25→14:38)
[2021-11-19] MEDS: INSULIN SLIDING SCALE (NOVOLOG) 1 VIAL SQ SCH ×4 (06:24→22:07)
[2021-11-19] MEDS: DULoxetine HCL 30 MG CAPSULE.DR PO SCH (09:33)
[2021-11-19] MEDS: PREGABALIN 100 MG CAPSULE PO SCH ×2 (09:33→22:01)
[2021-11-19] MEDS: FUROSEMIDE 40 MG TABLET (FP) PO SCH (09:33)
[2021-11-19] MEDS: NICOTINE 14 MG/24 HOURS TOPICAL PATCH TD SCH (09:33)
[2021-11-19] MEDS: FAMOTIDINE 20 MG TABLET PO SCH (09:33)
[2021-11-19] MEDS: COLLAGENASE CLOSTRIDIUM HIST. 30 GRAMS TUBE TP SCH (09:33)
[2021-11-19] MEDS: traMADol HCL 50 MG TABLET PO PRN ×2 (09:48→17:59)
[2021-11-19] MEDS: ENALAPRIL MALEATE 2.5 MG TABLET PO SCH (17:48)
[2021-11-19] MEDS ORDERED: INSULIN (NOVOLOG) ASPART 100 UNITS/ML 10ML VIAL ONE (21:58)
[2021-11-19] MEDS: ACETAMINOPHEN 1000 MG/100 ML BAG IVPB PRN (21:59)
[2021-11-19] MEDS: ATORVASTATIN CA 10 MG TABLET (FP) PO SCH (22:01)
[2021-11-19] MEDS: INSULIN (LEVEMIR) 100 UNITS/ML UNITS SQ SCH (22:07)
[2021-11-20] MEDS ORDERED: PIPERACILLIN/TAZOBACTAM 3.375 GM VIAL IVPB ONE ×3 (04:20→17:49)
[2021-11-20] MEDS ORDERED: DEXTROSE 5%-WATER - 50 ML IVPB ONE ×3 (04:20→17:50)
[2021-11-20] MEDS: PIPERACILLIN/TAZOB 3.375 GM 3.375 GM in DEXTROSE 5%-WATER - 50 ML IVPB SCH ×3 (04:24→18:34)
[2021-11-20] MEDS: VANCOMYCIN/WATER BAGS 1,250 MG/250 ML BAG IVPB SCH ×2 (05:00→13:28)
[2021-11-20] MEDS: INSULIN SLIDING SCALE (NOVOLOG) 1 VIAL SQ SCH ×4 (07:07→21:40)
[2021-11-20] MEDS: ENALAPRIL MALEATE 2.5 MG TABLET PO SCH (09:43)
[2021-11-20] MEDS: PREGABALIN 100 MG CAPSULE PO SCH ×2 (09:43→21:38)
[2021-11-20] MEDS: FAMOTIDINE 20 MG TABLET PO SCH (09:43)
[2021-11-20] MEDS: DULoxetine HCL 30 MG CAPSULE.DR PO SCH (09:43)
[2021-11-20] MEDS: traMADol HCL 50 MG TABLET PO PRN ×2 (09:43→18:35)
[2021-11-20] MEDS: FUROSEMIDE 40 MG TABLET (FP) PO SCH (09:43)
[2021-11-20] MEDS: NICOTINE 14 MG/24 HOURS TOPICAL PATCH TD SCH (09:43)
[2021-11-20] MEDS: COLLAGENASE CLOSTRIDIUM HIST. 30 GRAMS TUBE TP SCH (09:47)
[2021-11-20 10:21] LABS: BASO % 0.7 % (0-2.0); EOS % 4.9 % (0-4.5); HEMATOCRIT 38.3 % (35.4-49); HEMOGLOBIN 12.3 GM/dL (11.7-16.9); LYMPH % 26.3 % (8-40); MCH 27.8 pg (25.7-33.7); MCHC 32.2 g/dl (32.0-35.9); MEAN CELL VOLUME 86.3 fl (80-96); MEAN PLT VOLUME 8.7 fl (7.5-11.1); MONO % 4.4 % (3.8-10.2); NEUT % 63.7 % (42.8-82.8); PLATELET COUNT 210 10^3/uL (134-434); RBC 4.44 M/mm3 (4.00-5.60); WHITE BLOOD COUNT 6.9 K/mm3 (4.0-10.0)
[2021-11-20 10:39] LABS: CALCIUM 8.3 mg/dL (8.5-10.1)
[2021-11-20 10:40] LABS: BLOOD UREA NITROGEN 20.7 mg/dL (7-18)
[2021-11-20 10:43] LABS: CREATININE 1.1 mg/dL (0.55-1.3)
[2021-11-20] MEDS: ACETAMINOPHEN 1000 MG/100 ML BAG IVPB PRN (14:19)
[2021-11-20] MEDS ORDERED: ZOLPIDEM TARTRATE 5 MG TABLET PO ONE ×2 (17:57→22:00)
[2021-11-20] MEDS: ATORVASTATIN CA 10 MG TABLET (FP) PO SCH (21:38)
[2021-11-20] MEDS ORDERED: INSULIN (LEVEMIR) 100 UNITS/ML UNITS SQ SCH (22:00)
[2021-11-21] MEDS ORDERED: PIPERACILLIN/TAZOBACTAM 3.375 GM VIAL IVPB ONE ×3 (01:17→16:12)
[2021-11-21] MEDS ORDERED: DEXTROSE 5%-WATER - 50 ML IVPB ONE ×2 (01:17→16:12)
[2021-11-21] MEDS: PIPERACILLIN/TAZOB 3.375 GM 3.375 GM in DEXTROSE 5%-WATER - 50 ML IVPB SCH ×3 (01:38→17:14)
[2021-11-21] MEDS: traMADol HCL 50 MG TABLET PO PRN ×2 (03:15→15:12)
[2021-11-21] MEDS: INSULIN SLIDING SCALE (NOVOLOG) 1 VIAL SQ SCH ×4 (06:07→21:00)
[2021-11-21] MEDS ORDERED: LIDOCAINE HCL 2% (20ML MULTI-DOSE VIAL) ONE (08:22)
[2021-11-21 09:05] LABS: BASO % 0.5 % (0-2.0); EOS % 4.8 % (0-4.5); HEMATOCRIT 43.1 % (35.4-49); HEMOGLOBIN 13.6 GM/dL (11.7-16.9); MCH 27.6 pg (25.7-33.7); MCHC 31.5 g/dl (32.0-35.9); MEAN CELL VOLUME 87.6 fl (80-96); MEAN PLT VOLUME 8.9 fl (7.5-11.1); MONO % 4.4 % (3.8-10.2); NEUT % 58.3 % (42.8-82.8); PLATELET COUNT 240 10^3/uL (134-434); RBC 4.92 M/mm3 (4.00-5.60); RDW 16.2 % (11.9-15.9); WHITE BLOOD COUNT 7.8 K/mm3 (4.0-10.0)
[2021-11-21 09:30] LABS: BLOOD UREA NITROGEN 18.5 mg/dL (7-18); CALCIUM 9.3 mg/dL (8.5-10.1)
[2021-11-21 09:33] LABS: PHOSPHOROUS 3.7 mg/dL (2.5-4.9)
[2021-11-21] MEDS ORDERED: LIDOCAINE HCL 2% (50ML VIAL) NR ONE (09:50)
[2021-11-21] MEDS: DULoxetine HCL 30 MG CAPSULE.DR PO SCH (11:23)
[2021-11-21] MEDS: FAMOTIDINE 20 MG TABLET PO SCH (11:23)
[2021-11-21] MEDS: FUROSEMIDE 40 MG TABLET (FP) PO SCH (11:23)
[2021-11-21] MEDS: PREGABALIN 100 MG CAPSULE PO SCH ×2 (11:23→21:00)
[2021-11-21] MEDS ORDERED: ONDANSETRON 4 MG/2 ML VIAL IVPUSH PRN ×2 (11:24→11:34)
[2021-11-21] MEDS ORDERED: LACTATED RINGERS SOLUTION 1,000 ML IV SCH ×2 (11:30→11:34)
[2021-11-21] MEDS: ENALAPRIL MALEATE 2.5 MG TABLET PO SCH (12:19)
[2021-11-21] MEDS: COLLAGENASE CLOSTRIDIUM HIST. 30 GRAMS TUBE TP SCH (12:19)
[2021-11-21] MEDS: NICOTINE 14 MG/24 HOURS TOPICAL PATCH TD SCH (12:20)
[2021-11-21] MEDS ORDERED: INSULIN (NOVOLOG) ASPART 100 UNITS/ML 10ML VIAL ONE (18:33)
[2021-11-21] MEDS ORDERED: ACETAMINOPHEN 1000 MG/100 ML BAG IVPB ONE (19:53)
[2021-11-21] MEDS: INSULIN (LEVEMIR) 100 UNITS/ML UNITS SQ SCH (20:59)
[2021-11-21] MEDS: ATORVASTATIN CA 10 MG TABLET (FP) PO SCH (21:00)
[2021-11-22] MEDS ORDERED: PIPERACILLIN/TAZOBACTAM 3.375 GM VIAL IVPB ONE ×3 (00:31→17:25)
[2021-11-22] MEDS ORDERED: DEXTROSE 5%-WATER - 50 ML IVPB ONE ×3 (00:31→17:25)
[2021-11-22] MEDS: PIPERACILLIN/TAZOB 3.375 GM 3.375 GM in DEXTROSE 5%-WATER - 50 ML IVPB SCH ×3 (01:00→18:09)
[2021-11-22] MEDS: traMADol HCL 50 MG TABLET PO PRN ×2 (01:00→15:53)
[2021-11-22] MEDS: INSULIN SLIDING SCALE (NOVOLOG) 1 VIAL SQ SCH ×4 (06:08→21:25)
[2021-11-22 09:32] LABS: HEMATOCRIT 35.3 % (35.4-49); HEMOGLOBIN 11.8 GM/dL (11.7-16.9); MCH 28.5 pg (25.7-33.7); MCHC 33.3 g/dl (32.0-35.9); MEAN CELL VOLUME 85.4 fl (80-96); MEAN PLT VOLUME 8.6 fl (7.5-11.1); PLATELET COUNT 203 10^3/uL (134-434); RBC 4.13 M/mm3 (4.00-5.60); RDW 15.9 % (11.9-15.9); WHITE BLOOD COUNT 9.5 K/mm3 (4.0-10.0)
[2021-11-22 09:33] LABS: BASO % 0.4 % (0-2.0); EOS % 3.4 % (0-4.5); LYMPH % 20.2 % (8-40); MONO % 6.5 % (3.8-10.2); NEUT % 69.5 % (42.8-82.8)
[2021-11-22 09:48] LABS: ALBUMIN 2.8 g/dl (3.4-5.0); BLOOD UREA NITROGEN 19.2 mg/dL (7-18); CALCIUM 8.5 mg/dL (8.5-10.1)
[2021-11-22 09:51] LABS: CREATININE 0.9 mg/dL (0.55-1.3)
[2021-11-22 09:53] LABS: BILIRUBIN,TOTAL 0.6 mg/dL (0.2-1); TOT PROT 7.1 g/dl (6.4-8.2)
[2021-11-22] MEDS ORDERED: INSULIN (NOVOLOG) ASPART 100 UNITS/ML 10ML VIAL ONE (09:56)
[2021-11-22] MEDS: FUROSEMIDE 40 MG TABLET (FP) PO SCH (10:04)
[2021-11-22] MEDS: NICOTINE 14 MG/24 HOURS TOPICAL PATCH TD SCH (10:04)
[2021-11-22] MEDS: FAMOTIDINE 20 MG TABLET PO SCH (10:05)
[2021-11-22] MEDS: ENALAPRIL MALEATE 2.5 MG TABLET PO SCH ×2 (10:05→10:13)
[2021-11-22] MEDS: DULoxetine HCL 30 MG CAPSULE.DR PO SCH (10:05)
[2021-11-22] MEDS: COLLAGENASE CLOSTRIDIUM HIST. 30 GRAMS TUBE TP SCH (10:06)
[2021-11-22] MEDS: PREGABALIN 100 MG CAPSULE PO SCH ×2 (10:06→21:26)
[2021-11-22] MEDS: ACETAMINOPHEN 325 MG TABLET (FP) PO PRN (10:07)
[2021-11-22] MEDS ORDERED: ACETAMINOPHEN 325 MG TABLET (FP) PO PRN (17:47)
[2021-11-22] MEDS: INSULIN (LEVEMIR) 100 UNITS/ML UNITS SQ SCH (21:24)
[2021-11-22] MEDS: ATORVASTATIN CA 10 MG TABLET (FP) PO SCH (21:26)
[2021-11-22] MEDS: oxyCODONE HCL 5 MG TABLET PO PRN (21:26)
[2021-11-23] MEDS ORDERED: DEXTROSE 5%-WATER - 50 ML IVPB ONE ×4 (00:54→17:36)
[2021-11-23] MEDS ORDERED: PIPERACILLIN/TAZOBACTAM 3.375 GM VIAL IVPB ONE ×4 (00:54→17:35)
[2021-11-23] MEDS: PIPERACILLIN/TAZOB 3.375 GM 3.375 GM in DEXTROSE 5%-WATER - 50 ML IVPB SCH ×3 (02:04→18:05)
[2021-11-23] MEDS: oxyCODONE HCL 5 MG TABLET PO PRN ×2 (06:20→18:04)
[2021-11-23] MEDS: INSULIN SLIDING SCALE (NOVOLOG) 1 VIAL SQ SCH ×4 (06:20→21:29)
[2021-11-23] MEDS ORDERED: INSULIN (NOVOLOG) ASPART 100 UNITS/ML 10ML VIAL ONE (12:26)
[2021-11-23] MEDS: PREGABALIN 100 MG CAPSULE PO SCH ×2 (12:38→21:28)
[2021-11-23] MEDS: NICOTINE 14 MG/24 HOURS TOPICAL PATCH TD SCH (12:38)
[2021-11-23] MEDS: FUROSEMIDE 40 MG TABLET (FP) PO SCH (12:38)
[2021-11-23] MEDS: FAMOTIDINE 20 MG TABLET PO SCH (12:39)
[2021-11-23] MEDS: DULoxetine HCL 30 MG CAPSULE.DR PO SCH (12:39)
[2021-11-23] MEDS: COLLAGENASE CLOSTRIDIUM HIST. 30 GRAMS TUBE TP SCH (12:40)
[2021-11-23] MEDS: ENALAPRIL MALEATE 2.5 MG TABLET PO SCH (12:41)
[2021-11-23] MEDS ORDERED: MELATONIN 5 MG TABLETS PO PRN (20:16)
[2021-11-23] MEDS: ATORVASTATIN CA 10 MG TABLET (FP) PO SCH (21:28)
[2021-11-23] MEDS: INSULIN (LEVEMIR) 100 UNITS/ML UNITS SQ SCH (21:29)
[2021-11-23] MEDS: ACETAMINOPHEN 325 MG TABLET (FP) PO PRN (21:34)
[2021-11-23] MEDS ORDERED: ZOLPIDEM TARTRATE 5 MG TABLET PO ONE (22:00)
[2021-11-24] MEDS ORDERED: DEXTROSE 5%-WATER - 50 ML IVPB ONE ×2 (01:14→13:13)
[2021-11-24] MEDS ORDERED: PIPERACILLIN/TAZOBACTAM 3.375 GM VIAL IVPB ONE ×2 (01:14→13:13)
[2021-11-24] MEDS: PIPERACILLIN/TAZOB 3.375 GM 3.375 GM in DEXTROSE 5%-WATER - 50 ML IVPB SCH ×3 (01:33→17:46)
[2021-11-24] MEDS: oxyCODONE HCL 5 MG TABLET PO PRN ×3 (06:53→21:59)
[2021-11-24] MEDS: INSULIN SLIDING SCALE (NOVOLOG) 1 VIAL SQ SCH ×4 (06:56→22:00)
[2021-11-24 09:03] LABS: BASO % 0.5 % (0-2.0); EOS % 3.3 % (0-4.5); HEMATOCRIT 32.5 % (35.4-49); HEMOGLOBIN 10.5 GM/dL (11.7-16.9); LYMPH % 23.6 % (8-40); MCHC 32.4 g/dl (32.0-35.9); MEAN CELL VOLUME 86.6 fl (80-96); MEAN PLT VOLUME 9.4 fl (7.5-11.1); MONO % 6.2 % (3.8-10.2); NEUT % 66.4 % (42.8-82.8); PLATELET COUNT 176 10^3/uL (134-434); RBC 3.76 M/mm3 (4.00-5.60); RDW 16.2 % (11.9-15.9); WHITE BLOOD COUNT 7.4 K/mm3 (4.0-10.0)
[2021-11-24 10:06] LABS: CALCIUM 8.4 mg/dL (8.5-10.1)
[2021-11-24 10:07] LABS: ALBUMIN 2.8 g/dl (3.4-5.0); BLOOD UREA NITROGEN 13.9 mg/dL (7-18)
[2021-11-24 10:10] LABS: CREATININE 0.9 mg/dL (0.55-1.3)
[2021-11-24 10:12] LABS: BILIRUBIN,TOTAL 0.8 mg/dL (0.2-1); TOT PROT 6.8 g/dl (6.4-8.2)
[2021-11-24] MEDS: DULoxetine HCL 30 MG CAPSULE.DR PO SCH (13:36)
[2021-11-24] MEDS: FAMOTIDINE 20 MG TABLET PO SCH (13:36)
[2021-11-24] MEDS: FUROSEMIDE 40 MG TABLET (FP) PO SCH ×2 (13:36→14:02)
[2021-11-24] MEDS: PREGABALIN 100 MG CAPSULE PO SCH ×2 (13:36→21:59)
[2021-11-24] MEDS: ENALAPRIL MALEATE 2.5 MG TABLET PO SCH ×2 (13:37→14:03)
[2021-11-24] MEDS: NICOTINE 14 MG/24 HOURS TOPICAL PATCH TD SCH (13:37)
[2021-11-24] MEDS: COLLAGENASE CLOSTRIDIUM HIST. 30 GRAMS TUBE TP SCH (13:37)
[2021-11-24] MEDS ORDERED: LIDOCAINE HCL 2% (20ML MULTI-DOSE VIAL) ONE (15:01)
[2021-11-24] MEDS ORDERED: MIDAZOLAM HCL 2 MG/2 ML SINGLE DOSE VIAL ONE ×2 (17:48)
[2021-11-24] MEDS ORDERED: ROPIVACAINE HCL 0.5% 30ML VIAL ONE (17:51)
[2021-11-24] MEDS ORDERED: PROPOFOL 20 ML ONE ×2 (18:19→18:59)
[2021-11-24] MEDS ORDERED: ACETAMINOPHEN 325 MG TABLET (FP) PO PRN (20:19)
[2021-11-24] MEDS ORDERED: ONDANSETRON 4 MG/2 ML VIAL IVPUSH PRN (20:26)
[2021-11-24] MEDS: INSULIN (LEVEMIR) 100 UNITS/ML UNITS SQ SCH (21:59)
[2021-11-24] MEDS: ATORVASTATIN CA 10 MG TABLET (FP) PO SCH (21:59)
[2021-11-24] MEDS: MELATONIN 5 MG TABLETS PO PRN (21:59)
[2021-11-25] MEDS ORDERED: DEXTROSE 5%-WATER - 50 ML IVPB ONE ×3 (00:57→17:48)
[2021-11-25] MEDS ORDERED: PIPERACILLIN/TAZOBACTAM 3.375 GM VIAL IVPB ONE ×3 (00:57→17:48)
[2021-11-25] MEDS: PIPERACILLIN/TAZOB 3.375 GM 3.375 GM in DEXTROSE 5%-WATER - 50 ML IVPB SCH ×3 (01:45→18:04)
[2021-11-25] MEDS: INSULIN SLIDING SCALE (NOVOLOG) 1 VIAL SQ SCH ×4 (06:10→21:51)
[2021-11-25] MEDS: PREGABALIN 100 MG CAPSULE PO SCH ×2 (09:15→21:51)
[2021-11-25] MEDS: DULoxetine HCL 30 MG CAPSULE.DR PO SCH (09:15)
[2021-11-25] MEDS: FUROSEMIDE 40 MG TABLET (FP) PO SCH (09:15)
[2021-11-25] MEDS: NICOTINE 14 MG/24 HOURS TOPICAL PATCH TD SCH (09:15)
[2021-11-25] MEDS: ENALAPRIL MALEATE 2.5 MG TABLET PO SCH (09:15)
[2021-11-25] MEDS: ENOXAPARIN NA (PORCINE) 40 MG/0.4 ML DISP.SYRIN SQ SCH (09:16)
[2021-11-25] MEDS: oxyCODONE HCL 5 MG TABLET PO PRN ×2 (09:16→16:54)
[2021-11-25] MEDS: FAMOTIDINE 20 MG TABLET PO SCH (09:16)
[2021-11-25] MEDS: ACETAMINOPHEN 325 MG TABLET (FP) PO PRN ×2 (09:17→16:54)
[2021-11-25] MEDS: COLLAGENASE CLOSTRIDIUM HIST. 30 GRAMS TUBE TP SCH (10:21)
[2021-11-25] MEDS: INSULIN (LEVEMIR) 100 UNITS/ML UNITS SQ SCH (21:50)
[2021-11-25] MEDS: ATORVASTATIN CA 10 MG TABLET (FP) PO SCH (21:51)
[2021-11-25] MEDS: MELATONIN 5 MG TABLETS PO PRN (21:51)
[2021-11-26] MEDS ORDERED: PIPERACILLIN/TAZOBACTAM 3.375 GM VIAL IVPB ONE ×3 (01:45→15:39)
[2021-11-26] MEDS ORDERED: DEXTROSE 5%-WATER - 50 ML IVPB ONE ×3 (01:45→15:39)
[2021-11-26] MEDS: PIPERACILLIN/TAZOB 3.375 GM 3.375 GM in DEXTROSE 5%-WATER - 50 ML IVPB SCH ×3 (02:29→17:08)
[2021-11-26] MEDS: INSULIN SLIDING SCALE (NOVOLOG) 1 VIAL SQ SCH ×4 (06:10→22:41)
[2021-11-26 08:18] LABS: BASO % 0.4 % (0-2.0); EOS % 3.5 % (0-4.5); HEMATOCRIT 30.9 % (35.4-49); HEMOGLOBIN 10.2 GM/dL (11.7-16.9); LYMPH % 19.3 % (8-40); MCH 28.6 pg (25.7-33.7); MCHC 32.9 g/dl (32.0-35.9); MEAN CELL VOLUME 87.1 fl (80-96); MEAN PLT VOLUME 9.1 fl (7.5-11.1); MONO % 7.3 % (3.8-10.2); NEUT % 69.5 % (42.8-82.8); PLATELET COUNT 174 10^3/uL (134-434); RBC 3.55 M/mm3 (4.00-5.60); RDW 16.2 % (11.9-15.9); WHITE BLOOD COUNT 8.9 K/mm3 (4.0-10.0)
[2021-11-26 08:37] LABS: CALCIUM 8.1 mg/dL (8.5-10.1)
[2021-11-26 08:38] LABS: BLOOD UREA NITROGEN 15.3 mg/dL (7-18)
[2021-11-26 08:41] LABS: CREATININE 1.1 mg/dL (0.55-1.3)
[2021-11-26] MEDS: ENALAPRIL MALEATE 2.5 MG TABLET PO SCH (09:01)
[2021-11-26] MEDS: FAMOTIDINE 20 MG TABLET PO SCH (09:02)
[2021-11-26] MEDS: DULoxetine HCL 30 MG CAPSULE.DR PO SCH (09:02)
[2021-11-26] MEDS: ENOXAPARIN NA (PORCINE) 40 MG/0.4 ML DISP.SYRIN SQ SCH (09:02)
[2021-11-26] MEDS: oxyCODONE HCL 5 MG TABLET PO PRN ×2 (09:02→17:08)
[2021-11-26] MEDS: NICOTINE 14 MG/24 HOURS TOPICAL PATCH TD SCH (09:02)
[2021-11-26] MEDS: FUROSEMIDE 40 MG TABLET (FP) PO SCH (09:03)
[2021-11-26] MEDS: PREGABALIN 100 MG CAPSULE PO SCH ×2 (09:05→22:41)
[2021-11-26] MEDS: COLLAGENASE CLOSTRIDIUM HIST. 30 GRAMS TUBE TP SCH (11:28)
[2021-11-26] MEDS: ACETAMINOPHEN 325 MG TABLET (FP) PO PRN (14:11)
[2021-11-26] MEDS: POLYETHYLENE GLYCOL (HEALTHYLAX) 3350 17 GM PACKET PO SCH ×2 (15:48→22:41)
[2021-11-26] MEDS: DOCUSATE SODIUM 100 MG CAPSULE (FP) PO SCH (15:48)
[2021-11-26] MEDS: INSULIN (LEVEMIR) 100 UNITS/ML UNITS SQ SCH (22:41)
[2021-11-26] MEDS: ATORVASTATIN CA 10 MG TABLET (FP) PO SCH (22:41)
[2021-11-26] MEDS: MELATONIN 5 MG TABLETS PO PRN (22:41)
[2021-11-27] MEDS ORDERED: DEXTROSE 5%-WATER - 50 ML IVPB ONE ×3 (01:11→17:13)
[2021-11-27] MEDS ORDERED: PIPERACILLIN/TAZOBACTAM 3.375 GM VIAL IVPB ONE ×3 (01:11→17:13)
[2021-11-27] MEDS: PIPERACILLIN/TAZOB 3.375 GM 3.375 GM in DEXTROSE 5%-WATER - 50 ML IVPB SCH ×3 (01:26→17:55)
[2021-11-27] MEDS: oxyCODONE HCL 5 MG TABLET PO PRN ×3 (01:33→20:16)
[2021-11-27] MEDS: INSULIN SLIDING SCALE (NOVOLOG) 1 VIAL SQ SCH ×4 (06:25→21:27)
[2021-11-27 09:46] LABS: BASO % 0.5 % (0-2.0); EOS % 3.4 % (0-4.5); HEMATOCRIT 29.4 % (35.4-49); HEMOGLOBIN 9.5 GM/dL (11.7-16.9); LYMPH % 22.2 % (8-40); MCH 27.9 pg (25.7-33.7); MCHC 32.4 g/dl (32.0-35.9); MEAN PLT VOLUME 9.4 fl (7.5-11.1); MONO % 6.6 % (3.8-10.2); NEUT % 67.3 % (42.8-82.8); PLATELET COUNT 187 10^3/uL (134-434); RBC 3.42 M/mm3 (4.00-5.60); RDW 16.4 % (11.9-15.9); WHITE BLOOD COUNT 7.7 K/mm3 (4.0-10.0)
[2021-11-27 10:07] LABS: CALCIUM 8.4 mg/dL (8.5-10.1)
[2021-11-27 10:08] LABS: ALBUMIN 2.5 g/dl (3.4-5.0); BLOOD UREA NITROGEN 13.5 mg/dL (7-18)
[2021-11-27 10:10] LABS: BILIRUBIN,TOTAL 0.5 mg/dL (0.2-1); TOT PROT 6.7 g/dl (6.4-8.2)
[2021-11-27] MEDS: FAMOTIDINE 20 MG TABLET PO SCH (11:40)
[2021-11-27] MEDS: POLYETHYLENE GLYCOL (HEALTHYLAX) 3350 17 GM PACKET PO SCH ×2 (11:40→21:25)
[2021-11-27] MEDS: DOCUSATE SODIUM 100 MG CAPSULE (FP) PO SCH (11:40)
[2021-11-27] MEDS: ENOXAPARIN NA (PORCINE) 40 MG/0.4 ML DISP.SYRIN SQ SCH (11:40)
[2021-11-27] MEDS: DULoxetine HCL 30 MG CAPSULE.DR PO SCH (11:40)
[2021-11-27] MEDS: PREGABALIN 100 MG CAPSULE PO SCH ×2 (11:40→21:28)
[2021-11-27] MEDS: FUROSEMIDE 40 MG TABLET (FP) PO SCH (11:40)
[2021-11-27] MEDS: NICOTINE 14 MG/24 HOURS TOPICAL PATCH TD SCH (11:41)
[2021-11-27] MEDS: ENALAPRIL MALEATE 2.5 MG TABLET PO SCH (11:42)
[2021-11-27] MEDS: COLLAGENASE CLOSTRIDIUM HIST. 30 GRAMS TUBE TP SCH (11:43)
[2021-11-27] MEDS ORDERED: INSULIN (NOVOLOG) ASPART 100 UNITS/ML 10ML VIAL ONE (17:16)
[2021-11-27] MEDS: ATORVASTATIN CA 10 MG TABLET (FP) PO SCH (21:26)
[2021-11-27] MEDS: INSULIN (LEVEMIR) 100 UNITS/ML UNITS SQ SCH (21:27)
[2021-11-27] MEDS: MELATONIN 5 MG TABLETS PO PRN (21:29)
[2021-11-28] MEDS ORDERED: PIPERACILLIN/TAZOBACTAM 3.375 GM VIAL IVPB ONE ×2 (01:18→08:27)
[2021-11-28] MEDS ORDERED: DEXTROSE 5%-WATER - 50 ML IVPB ONE ×2 (01:18→08:27)
[2021-11-28] MEDS: PIPERACILLIN/TAZOB 3.375 GM 3.375 GM in DEXTROSE 5%-WATER - 50 ML IVPB SCH ×2 (01:28→10:25)
[2021-11-28] MEDS: INSULIN SLIDING SCALE (NOVOLOG) 1 VIAL SQ SCH ×2 (06:11→12:26)
[2021-11-28 09:08] LABS: BASO % 0.5 % (0-2.0); EOS % 5.1 % (0-4.5); HEMATOCRIT 30.5 % (35.4-49); LYMPH % 22.4 % (8-40); MCH 27.9 pg (25.7-33.7); MCHC 32.8 g/dl (32.0-35.9); MEAN CELL VOLUME 85.2 fl (80-96); MEAN PLT VOLUME 9.5 fl (7.5-11.1); MONO % 5.5 % (3.8-10.2); NEUT % 66.5 % (42.8-82.8); PLATELET COUNT 190 10^3/uL (134-434); RBC 3.58 M/mm3 (4.00-5.60); RDW 16.4 % (11.9-15.9); WHITE BLOOD COUNT 7.1 K/mm3 (4.0-10.0)
[2021-11-28 09:15] LABS: CALCIUM 8.5 mg/dL (8.5-10.1)
[2021-11-28 09:16] LABS: BLOOD UREA NITROGEN 12.7 mg/dL (7-18)
[2021-11-28] MEDS: PREGABALIN 100 MG CAPSULE PO SCH (10:24)
[2021-11-28] MEDS: ACETAMINOPHEN 325 MG TABLET (FP) PO PRN (10:24)
[2021-11-28] MEDS: ENALAPRIL MALEATE 2.5 MG TABLET PO SCH (10:25)
[2021-11-28] MEDS: FAMOTIDINE 20 MG TABLET PO SCH (10:25)
[2021-11-28] MEDS: ENOXAPARIN NA (PORCINE) 40 MG/0.4 ML DISP.SYRIN SQ SCH (10:25)
[2021-11-28] MEDS: NICOTINE 14 MG/24 HOURS TOPICAL PATCH TD SCH (10:25)
[2021-11-28] MEDS: DULoxetine HCL 30 MG CAPSULE.DR PO SCH (10:25)
[2021-11-28] MEDS: DOCUSATE SODIUM 100 MG CAPSULE (FP) PO SCH (10:26)
[2021-11-28] MEDS: POLYETHYLENE GLYCOL (HEALTHYLAX) 3350 17 GM PACKET PO SCH (10:26)
[2021-11-28] MEDS: FUROSEMIDE 40 MG TABLET (FP) PO SCH (10:26)
[2021-11-28] MEDS: COLLAGENASE CLOSTRIDIUM HIST. 30 GRAMS TUBE TP SCH (10:26)
[2021-11-28 12:40] VITALS: BP 149/86; PULSE 80; TEMP 98.6
== END 2021-11-28 13:52 | DRG 240 ==
LOC: JER 10:35 → JERBED 11:55 → J7W 11-17 04:03
PROVIDERS: ADMIT Internal Medicine; ATTEND Internal Medicine
PROC: 0Y6M0ZB Detachment at Right Foot, Partial 2nd Ray, Open Approach (ICD-10-PCS; 2021-11-21)
PROC: 0Y6M0ZC Detachment at Right Foot, Partial 3rd Ray, Open Approach (ICD-10-PCS; 2021-11-21)
PROC: 0Y6M0ZD Detachment at Right Foot, Partial 4th Ray, Open Approach (ICD-10-PCS; 2021-11-21)
PROC: 0Y6M0ZF Detachment at Right Foot, Partial 5th Ray, Open Approach (ICD-10-PCS; 2021-11-21)
PROC: 0L8N0ZZ Division of Right Lower Leg Tendon, Open Approach (ICD-10-PCS; 2021-11-21)
PROC: 0Y6M0Z9 Detachment at Right Foot, Partial 1st Ray, Open Approach (ICD-10-PCS; principal; 2021-11-21 08:30)
PROC: 0Y6N0Z9 Detachment at Left Foot, Partial 1st Ray, Open Approach (ICD-10-PCS; 2021-11-24)
PROC: 0Y6N0ZB Detachment at Left Foot, Partial 2nd Ray, Open Approach (ICD-10-PCS; 2021-11-24)
PROC: 0Y6N0ZC Detachment at Left Foot, Partial 3rd Ray, Open Approach (ICD-10-PCS; 2021-11-24)
PROC: 0Y6N0ZD Detachment at Left Foot, Partial 4th Ray, Open Approach (ICD-10-PCS; 2021-11-24)
PROC: 0Y6N0ZF Detachment at Left Foot, Partial 5th Ray, Open Approach (ICD-10-PCS; 2021-11-24)
PROC: 0L8P0ZZ Division of Left Lower Leg Tendon, Open Approach (ICD-10-PCS; 2021-11-24)
PROC: 0JH63XZ Insertion of Tunneled Vascular Access Device into Chest Subcutaneous Tissue and Fascia, Percutaneous Approach (ICD-10-PCS; 2021-11-27)
PROC: 02HV33Z Insertion of Infusion Device into Superior Vena Cava, Percutaneous Approach (ICD-10-PCS; 2021-11-27)
PROC: B548ZZA Ultrasonography of Superior Vena Cava, Guidance (ICD-10-PCS; 2021-11-27)
DX: E11.52 Type 2 diabetes mellitus with diabetic peripheral angiopathy with gangrene (principal); I50.22 Chronic systolic (congestive) heart failure; M86.172 Other acute osteomyelitis, left ankle and foot; I13.0 Hypertensive heart and chronic kidney disease with heart failure and stage 1 through stage 4 chronic kidney disease, or unspecified chronic kidney disease; E11.42 Type 2 diabetes mellitus with diabetic polyneuropathy; I11.0 Hypertensive heart disease with heart failure; G47.33 Obstructive sleep apnea (adult) (pediatric); E11.65 Type 2 diabetes mellitus with hyperglycemia; E11.69 Type 2 diabetes mellitus with other specified complication; E66.01 Morbid (severe) obesity due to excess calories; E11.22 Type 2 diabetes mellitus with diabetic chronic kidney disease; N18.9 Chronic kidney disease, unspecified; Z68.39 Body mass index [BMI] 39.0-39.9, adult
CPT/HCPCS: 36415; 36558; 71045-TC-FY; 73630-TC-LT; 73630-TC-RT-FY; 75635-TC; 76000-TC-FY; 80048; 80053; 82550; 82962; 83735; 84100; 84153; 85025; 85610; 85730; 86850; 86900; 86901; 87040; 87070; 87075; 87205; 88305-TC; 88311-TC; 93005; 93010; 94760; 97116-GP; 97162-GP; 99285-25; C9803; G0480; Q9967; U0003; U0005

== ENCOUNTER → 2022-01-22 | Day surgery (SDC) | payer OTHER | END | disposition home or self-care (01) | LOC: JRADIR 09:40 | PROVIDERS: ATTEND Nurse Practitioner Family | PROC: 02PY03Z Removal of Infusion Device from Great Vessel, Open Approach (ICD-10-PCS; principal; 2022-01-22) | DX: Z45.2 Encounter for adjustment and management of vascular access device (principal) | CPT/HCPCS: 36589 ==

== ENCOUNTER 2022-08-08 11:24 | Inpatient (IN) | payer OTHER ==
[2022-08-08] MEDS ORDERED: morphine CARPU-JECT 4 MG/1 ML DISP.SYRIN IVPUSH ONE ×2 (11:58→15:55)
[2022-08-08] MEDS ORDERED: MAG HYDROX/AL HYDROX/SIMETH 30 ML UNIT-DOSE CUP PO ONE (11:58)
[2022-08-08] MEDS ORDERED: FAMOTIDINE 20 MG/50 ML IVPB 20 MG/50 ML MG IVPB ONE ×2 (11:58→12:31)
[2022-08-08] MEDS ORDERED: morphine SULFATE 4 MG/ML VIAL ONE ×2 (12:30→16:07)
[2022-08-08] MEDS ORDERED: MAG HYDROX/AL HYDROX/SIMETH 30 ML UNIT-DOSE CUP ONE (12:31)
[2022-08-08 12:54] LABS: BASO % 0.7 % (0-2.0); EOS % 0.9 % (0-4.5); HEMATOCRIT 48.2 % (35.4-49); HEMOGLOBIN 15.5 GM/dL (11.7-16.9); LYMPH % 18.4 % (8-40); MCH 27.1 pg (25.7-33.7); MCHC 32.3 g/dl (32.0-35.9); MEAN CELL VOLUME 83.9 fl (80-96); MEAN PLT VOLUME 9.4 fl (7.5-11.1); MONO % 5.1 % (3.8-10.2); NEUT % 74.9 % (42.8-82.8); PLATELET COUNT 210 10^3/uL (134-434); RBC 5.75 M/mm3 (4.00-5.60); RDW 17.3 % (11.9-15.9); WHITE BLOOD COUNT 9.5 K/mm3 (4.0-10.0)
[2022-08-08 12:55] LABS: URINE APPEARANCE CLEAR; URINE BILIRUBIN NEGATIVE (NEGATIVE); URINE COLOR YELLOW; URINE GLUCOSE (UA) NEGATIVE (NEGATIVE); URINE KETONE NEGATIVE (NEGATIVE); URINE LEUK ESTERASE NEGATIVE (NEGATIVE); URINE NITRITE NEGATIVE (NEGATIVE); URINE PROTEIN NEGATIVE (NEGATIVE); URINE UROBILINOGEN 0.2 mg/dL (0.2-1.0)
[2022-08-08 13:31] LABS: CALCIUM 9.7 mg/dL (8.5-10.1); CREATININE 1.2 mg/dL (0.55-1.3)
[2022-08-08 13:32] LABS: BILIRUBIN,TOTAL 0.5 mg/dL (0.2-1); TOT PROT 8.6 g/dl (6.4-8.2)
[2022-08-08 13:48] LABS: ALBUMIN 3.7 g/dl (3.4-5.0); BLOOD UREA NITROGEN 9.6 mg/dL (7-18); MAGNESIUM 2.4 mg/dL (1.8-2.4)
[2022-08-08] MEDS ORDERED: SODIUM CHLORIDE 0.9% 500 ML INFUS.BAG IV ONE (16:45)
[2022-08-08] MEDS ORDERED: HYDROmorphone HCL CARPU-JECT 2 MG/1 ML DISP.SYRIN IVPUSH ONE (17:33)
[2022-08-08] MEDS ORDERED: HYDROmorphone HCl 2 MG/ML VIAL ONE ×2 (17:56→20:50)
[2022-08-08] MEDS ORDERED: HYDROmorphone HCL CARPU-JECT 2 MG/1 ML DISP.SYRIN IVPUSH PRN (18:18)
[2022-08-08] MEDS ORDERED: SODIUM CHLORIDE 1,000 ML IV SCH (18:30)
[2022-08-08] MEDS ORDERED: HYDROmorphone HCl 2 MG/ML VIAL IVPUSH PRN (18:36)
[2022-08-08] MEDS: SODIUM CHLORIDE 1,000 ML IV SCH (21:43)
[2022-08-09] MEDS: HYDROmorphone HCl 2 MG/ML VIAL IVPB PRN ×6 (01:10→21:41)
[2022-08-09] MEDS: INSULIN SLIDING SCALE (NOVOLOG) 1 VIAL SQ SCH ×4 (07:29→21:54)
[2022-08-09 09:17] LABS: BASO % 0.8 % (0-2.0); EOS % 1.2 % (0-4.5); HEMATOCRIT 44.7 % (35.4-49); HEMOGLOBIN 14.5 GM/dL (11.7-16.9); LYMPH % 26.1 % (8-40); MCH 27.1 pg (25.7-33.7); MCHC 32.4 g/dl (32.0-35.9); MEAN CELL VOLUME 83.5 fl (80-96); MONO % 5.8 % (3.8-10.2); NEUT % 66.1 % (42.8-82.8); PLATELET COUNT 179 10^3/uL (134-434); RBC 5.35 M/mm3 (4.00-5.60); RDW 17.1 % (11.9-15.9); WHITE BLOOD COUNT 7.1 K/mm3 (4.0-10.0)
[2022-08-09 09:49] LABS: BLOOD UREA NITROGEN 8.6 mg/dL (7-18)
[2022-08-09 09:50] LABS: ALBUMIN 3.2 g/dl (3.4-5.0); CALCIUM 9.1 mg/dL (8.5-10.1)
[2022-08-09] MEDS: ENOXAPARIN NA (PORCINE) 40 MG/0.4 ML DISP.SYRIN SQ SCH (09:50)
[2022-08-09 09:53] LABS: CREATININE 0.9 mg/dL (0.55-1.3)
[2022-08-09 09:54] LABS: TOT PROT 7.5 g/dl (6.4-8.2)
[2022-08-09 10:06] LABS: BILIRUBIN,TOTAL 0.3 mg/dL (0.2-1)
[2022-08-09 10:37] LABS: N-TERMINAL BNP 196.2 pg/ml (5-125)
[2022-08-09] MEDS: ENALAPRIL MALEATE 2.5 MG TABLET PO SCH (21:42)
[2022-08-10] MEDS: SODIUM CHLORIDE 1,000 ML IV SCH
[2022-08-10] MEDS: HYDROmorphone HCl 2 MG/ML VIAL IVPB PRN ×6 (03:14→22:18)
[2022-08-10] MEDS ORDERED: HYDROmorphone HCl 2 MG/ML VIAL IVPB ONE (05:37)
[2022-08-10] MEDS: INSULIN SLIDING SCALE (NOVOLOG) 1 VIAL SQ SCH ×4 (07:28→22:44)
[2022-08-10] MEDS: ENOXAPARIN NA (PORCINE) 40 MG/0.4 ML DISP.SYRIN SQ SCH (10:05)
[2022-08-10] MEDS: ENALAPRIL MALEATE 2.5 MG TABLET PO SCH ×2 (10:05→22:18)
[2022-08-10] MEDS: DEXTROSE 5%-LACTATED RINGERS 1,000 ML IV SCH (10:06)
[2022-08-10 11:59] LABS: BASO % 0.8 % (0-2.0); EOS % 1.4 % (0-4.5); HEMATOCRIT 45.1 % (35.4-49); HEMOGLOBIN 14.6 GM/dL (11.7-16.9); LYMPH % 29.6 % (8-40); MCHC 32.3 g/dl (32.0-35.9); MEAN CELL VOLUME 83.6 fl (80-96); MONO % 5.2 % (3.8-10.2); PLATELET COUNT 178 10^3/uL (134-434); RBC 5.39 M/mm3 (4.00-5.60); RDW 17.1 % (11.9-15.9); WHITE BLOOD COUNT 7.3 K/mm3 (4.0-10.0)
[2022-08-10 12:01] VITALS: BMI 34.5
[2022-08-10 12:31] LABS: ALBUMIN 3.3 g/dl (3.4-5.0); CALCIUM 9.2 mg/dL (8.5-10.1); MAGNESIUM 2.3 mg/dL (1.8-2.4)
[2022-08-10 12:34] LABS: CREATININE 0.8 mg/dL (0.55-1.3)
[2022-08-10 12:35] LABS: BILIRUBIN,TOTAL 0.4 mg/dL (0.2-1); TOT PROT 7.6 g/dl (6.4-8.2)
[2022-08-10] MEDS ORDERED: INSULIN (NOVOLOG) ASPART 100 UNITS/ML 10ML VIAL ONE (22:14)
[2022-08-11] MEDS: HYDROmorphone HCl 2 MG/ML VIAL IVPB PRN ×5 (03:10→16:49)
[2022-08-11] MEDS: INSULIN SLIDING SCALE (NOVOLOG) 1 VIAL SQ SCH ×4 (06:27→23:24)
[2022-08-11 08:30] LABS: BASO % 0.4 % (0-2.0); EOS % 1.5 % (0-4.5); HEMATOCRIT 43.9 % (35.4-49); HEMOGLOBIN 14.6 GM/dL (11.7-16.9); LYMPH % 27.7 % (8-40); MCH 27.8 pg (25.7-33.7); MCHC 33.2 g/dl (32.0-35.9); MEAN PLT VOLUME 8.5 fl (7.5-11.1); MONO % 5.8 % (3.8-10.2); NEUT % 64.6 % (42.8-82.8); PLATELET COUNT 169 10^3/uL (134-434); RBC 5.23 M/mm3 (4.00-5.60); WHITE BLOOD COUNT 7.4 K/mm3 (4.0-10.0)
[2022-08-11 08:55] LABS: BLOOD UREA NITROGEN 14.9 mg/dL (7-18); CALCIUM 9.4 mg/dL (8.5-10.1)
[2022-08-11 08:56] LABS: ALBUMIN 3.4 g/dl (3.4-5.0); MAGNESIUM 2.2 mg/dL (1.8-2.4)
[2022-08-11 08:58] LABS: CREATININE 1.1 mg/dL (0.55-1.3)
[2022-08-11 09:00] LABS: BILIRUBIN,TOTAL 0.5 mg/dL (0.2-1); TOT PROT 7.9 g/dl (6.4-8.2)
[2022-08-11] MEDS: ENOXAPARIN NA (PORCINE) 40 MG/0.4 ML DISP.SYRIN SQ SCH (09:40)
[2022-08-11] MEDS: ENALAPRIL MALEATE 2.5 MG TABLET PO SCH ×2 (09:41→23:24)
[2022-08-11] MEDS: DEXTROSE 5%-LACTATED RINGERS 1,000 ML IV SCH (09:44)
[2022-08-11] MEDS: POLYETHYLENE GLYCOL (HEALTHYLAX) 3350 17 GM PACKET PO SCH ×2 (13:47→23:22)
[2022-08-12] MEDS: POLYETHYLENE GLYCOL (HEALTHYLAX) 3350 17 GM PACKET PO SCH ×3 (06:42→21:37)
[2022-08-12] MEDS: INSULIN SLIDING SCALE (NOVOLOG) 1 VIAL SQ SCH ×4 (06:43→21:37)
[2022-08-12] MEDS: HYDROmorphone HCl 2 MG/ML VIAL IVPB PRN (06:46)
[2022-08-12 09:37] LABS: BASO % 0.5 % (0-2.0); EOS % 1.8 % (0-4.5); HEMATOCRIT 42.6 % (35.4-49); HEMOGLOBIN 13.7 GM/dL (11.7-16.9); LYMPH % 26.8 % (8-40); MCH 27.1 pg (25.7-33.7); MCHC 32.2 g/dl (32.0-35.9); MEAN CELL VOLUME 84.3 fl (80-96); MEAN PLT VOLUME 9.4 fl (7.5-11.1); MONO % 6.2 % (3.8-10.2); NEUT % 64.7 % (42.8-82.8); PLATELET COUNT 174 10^3/uL (134-434); RBC 5.06 M/mm3 (4.00-5.60); RDW 17.3 % (11.9-15.9); WHITE BLOOD COUNT 6.9 K/mm3 (4.0-10.0)
[2022-08-12 09:54] LABS: CALCIUM 8.8 mg/dL (8.5-10.1)
[2022-08-12 09:56] LABS: ALBUMIN 3.2 g/dl (3.4-5.0); BLOOD UREA NITROGEN 15.5 mg/dL (7-18); MAGNESIUM 2.2 mg/dL (1.8-2.4)
[2022-08-12 09:59] LABS: BILIRUBIN,TOTAL 0.4 mg/dL (0.2-1); TOT PROT 7.4 g/dl (6.4-8.2)
[2022-08-12] MEDS ORDERED: Methylnaltrexone Bromide 12 MG/0.6 ML KIT SQ SCH (10:00)
[2022-08-12 10:01] LABS: CREATININE 0.9 mg/dL (0.55-1.3)
[2022-08-12] MEDS: ENOXAPARIN NA (PORCINE) 40 MG/0.4 ML DISP.SYRIN SQ SCH (10:40)
[2022-08-12] MEDS: ENALAPRIL MALEATE 2.5 MG TABLET PO SCH ×2 (10:41→21:32)
[2022-08-12] MEDS: DEXTROSE 5%-LACTATED RINGERS 1,000 ML IV SCH (10:42)
[2022-08-12] MEDS: metoPROLOL SUCCINATE 25 MG TAB.SR.24H (FP) PO SCH (16:47)
[2022-08-12] MEDS: SPIRONOLACTONE 25 MG TABLET PO SCH (16:48)
[2022-08-12] MEDS ORDERED: INSULIN (NOVOLOG) ASPART 100 UNITS/ML 10ML VIAL ONE (21:24)
[2022-08-13] MEDS: POLYETHYLENE GLYCOL (HEALTHYLAX) 3350 17 GM PACKET PO SCH (06:11)
[2022-08-13] MEDS: INSULIN SLIDING SCALE (NOVOLOG) 1 VIAL SQ SCH ×4 (06:12→21:55)
[2022-08-13 10:02] LABS: BASO % 0.3 % (0-2.0); EOS % 0.8 % (0-4.5); HEMATOCRIT 51.5 % (35.4-49); LYMPH % 17.6 % (8-40); MCH 27.5 pg (25.7-33.7); MEAN CELL VOLUME 83.4 fl (80-96); MEAN PLT VOLUME 9.1 fl (7.5-11.1); MONO % 5.4 % (3.8-10.2); NEUT % 75.9 % (42.8-82.8); PLATELET COUNT 219 10^3/uL (134-434); RBC 6.17 M/mm3 (4.00-5.60); RDW 17.5 % (11.9-15.9); WHITE BLOOD COUNT 13.6 K/mm3 (4.0-10.0)
[2022-08-13] MEDS: ENOXAPARIN NA (PORCINE) 40 MG/0.4 ML DISP.SYRIN SQ SCH (10:02)
[2022-08-13] MEDS: ENALAPRIL MALEATE 2.5 MG TABLET PO SCH ×2 (10:02→21:55)
[2022-08-13] MEDS: metoPROLOL SUCCINATE 25 MG TAB.SR.24H (FP) PO SCH (10:11)
[2022-08-13] MEDS: SPIRONOLACTONE 25 MG TABLET PO SCH (10:15)
[2022-08-13 10:26] LABS: CALCIUM 9.5 mg/dL (8.5-10.1)
[2022-08-13 10:28] LABS: ALBUMIN 3.2 g/dl (3.4-5.0); MAGNESIUM 2.3 mg/dL (1.8-2.4)
[2022-08-13 10:32] LABS: BILIRUBIN,TOTAL 0.4 mg/dL (0.2-1); TOT PROT 7.4 g/dl (6.4-8.2)
[2022-08-13] MEDS ORDERED: INSULIN (NOVOLOG) ASPART 100 UNITS/ML 10ML VIAL SQ ONE (12:22)
[2022-08-13 16:36] LABS: BASO % 0.3 % (0-2.0); EOS % 0.6 % (0-4.5); HEMATOCRIT 50.4 % (35.4-49); HEMOGLOBIN 16.3 GM/dL (11.7-16.9); LYMPH % 22.5 % (8-40); MCH 26.9 pg (25.7-33.7); MCHC 32.3 g/dl (32.0-35.9); MEAN CELL VOLUME 83.2 fl (80-96); MEAN PLT VOLUME 9.6 fl (7.5-11.1); MONO % 5.5 % (3.8-10.2); NEUT % 71.1 % (42.8-82.8); PLATELET COUNT 223 10^3/uL (134-434); RBC 6.06 M/mm3 (4.00-5.60); RDW 17.3 % (11.9-15.9); WHITE BLOOD COUNT 12.2 K/mm3 (4.0-10.0)
[2022-08-13 16:39] LABS: CALCIUM 9.8 mg/dL (8.5-10.1)
[2022-08-13 16:41] LABS: ALBUMIN 3.3 g/dl (3.4-5.0); BLOOD UREA NITROGEN 20.3 mg/dL (7-18)
[2022-08-13 16:43] LABS: CREATININE 2.8 mg/dL (0.55-1.3)
[2022-08-13 16:45] LABS: BILIRUBIN,TOTAL 0.4 mg/dL (0.2-1); TOT PROT 7.4 g/dl (6.4-8.2)
[2022-08-14] MEDS ORDERED: MAG HYDROX/AL HYDROX/SIMETH 30 ML UNIT-DOSE CUP PO ONE (01:47)
[2022-08-14] MEDS: INSULIN SLIDING SCALE (NOVOLOG) 1 VIAL SQ SCH ×4 (06:00→22:05)
[2022-08-14] MEDS ORDERED: FAMOTIDINE 20 MG/50 ML IVPB 20 MG/50 ML MG IVPB ONE (06:20)
[2022-08-14 09:52] LABS: BASO % 0.5 % (0-2.0); EOS % 0.9 % (0-4.5); HEMATOCRIT 47.1 % (35.4-49); HEMOGLOBIN 15.2 GM/dL (11.7-16.9); LYMPH % 21.1 % (8-40); MCH 26.8 pg (25.7-33.7); MCHC 32.3 g/dl (32.0-35.9); MEAN PLT VOLUME 9.9 fl (7.5-11.1); MONO % 5.1 % (3.8-10.2); NEUT % 72.4 % (42.8-82.8); PLATELET COUNT 203 10^3/uL (134-434); RBC 5.68 M/mm3 (4.00-5.60); WHITE BLOOD COUNT 12.4 K/mm3 (4.0-10.0)
[2022-08-14 10:23] LABS: ALBUMIN 3.5 g/dl (3.4-5.0); BLOOD UREA NITROGEN 33.1 mg/dL (7-18); CALCIUM 9.5 mg/dL (8.5-10.1); MAGNESIUM 2.4 mg/dL (1.8-2.4)
[2022-08-14 10:26] LABS: CREATININE 2.4 mg/dL (0.55-1.3)
[2022-08-14 10:29] LABS: BILIRUBIN,TOTAL 0.5 mg/dL (0.2-1); TOT PROT 7.8 g/dl (6.4-8.2)
[2022-08-14] MEDS: POLYETHYLENE GLYCOL (HEALTHYLAX) 3350 17 GM PACKET PO SCH (11:11)
[2022-08-14] MEDS: metoPROLOL SUCCINATE 25 MG TAB.SR.24H (FP) PO SCH (11:14)
[2022-08-14] MEDS: ENOXAPARIN NA (PORCINE) 40 MG/0.4 ML DISP.SYRIN SQ SCH (11:14)
[2022-08-14] MEDS: ENALAPRIL MALEATE 2.5 MG TABLET PO SCH ×2 (11:17→22:02)
[2022-08-14] MEDS: SODIUM CHLORIDE 1,000 ML IV SCH ×2 (11:19→22:44)
[2022-08-14] MEDS: SUCRALFATE 1 GM/10 ML UNIT DOSE CUPS PO SCH ×3 (15:02→22:02)
[2022-08-14] MEDS ORDERED: INSULIN (NOVOLOG) ASPART 100 UNITS/ML 10ML VIAL ONE (20:54)
[2022-08-14] MEDS: PANTOPRAZOLE SODIUM 40 MG VIAL IVPUSH SCH (22:02)
[2022-08-15] MEDS ORDERED: MELATONIN 5 MG TABLETS PO ONE (02:20)
[2022-08-15] MEDS: ACETAMINOPHEN 325 MG TABLET (FP) PO PRN (06:09)
[2022-08-15] MEDS: INSULIN SLIDING SCALE (NOVOLOG) 1 VIAL SQ SCH ×4 (06:09→22:26)
[2022-08-15] MEDS ORDERED: oxyCODONE HCL 5 MG TABLET PO PRN (08:38)
[2022-08-15 09:41] LABS: BASO % 0.5 % (0-2.0); EOS % 2.6 % (0-4.5); HEMATOCRIT 42.6 % (35.4-49); HEMOGLOBIN 13.8 GM/dL (11.7-16.9); LYMPH % 29.8 % (8-40); MCH 26.8 pg (25.7-33.7); MCHC 32.4 g/dl (32.0-35.9); MEAN CELL VOLUME 82.8 fl (80-96); MEAN PLT VOLUME 10.1 fl (7.5-11.1); MONO % 5.8 % (3.8-10.2); NEUT % 61.3 % (42.8-82.8); PLATELET COUNT 177 10^3/uL (134-434); RBC 5.14 M/mm3 (4.00-5.60); WHITE BLOOD COUNT 7.9 K/mm3 (4.0-10.0)
[2022-08-15] MEDS: ENOXAPARIN NA (PORCINE) 40 MG/0.4 ML DISP.SYRIN SQ SCH (09:55)
[2022-08-15] MEDS: PANTOPRAZOLE SODIUM 40 MG VIAL IVPUSH SCH ×2 (09:56→22:25)
[2022-08-15] MEDS: ENALAPRIL MALEATE 2.5 MG TABLET PO SCH ×2 (09:57→22:25)
[2022-08-15] MEDS: metoPROLOL SUCCINATE 25 MG TAB.SR.24H (FP) PO SCH (09:57)
[2022-08-15] MEDS: SUCRALFATE 1 GM/10 ML UNIT DOSE CUPS PO SCH ×4 (09:57→22:25)
[2022-08-15] MEDS: oxyCODONE HCL 5 MG TABLET PO PRN ×3 (09:58→22:25)
[2022-08-15 10:00] LABS: LIPASE 225 U/L (73-393)
[2022-08-15] MEDS: POLYETHYLENE GLYCOL (HEALTHYLAX) 3350 17 GM PACKET PO SCH (10:00)
[2022-08-15 10:01] LABS: AMYLASE 23 U/L (25-115)
[2022-08-15 10:02] LABS: CALCIUM 9.1 mg/dL (8.5-10.1)
[2022-08-15 10:03] LABS: ALBUMIN 3.5 g/dl (3.4-5.0); BLOOD UREA NITROGEN 23.2 mg/dL (7-18); CREATININE 1.5 mg/dL (0.55-1.3); MAGNESIUM 2.1 mg/dL (1.8-2.4); TOT PROT 7.5 g/dl (6.4-8.2)
[2022-08-15 10:04] LABS: BILIRUBIN,TOTAL 0.3 mg/dL (0.2-1)
[2022-08-15] MEDS ORDERED: INSULIN (NOVOLOG) ASPART 100 UNITS/ML 10ML VIAL ONE ×2 (18:48→20:54)
[2022-08-15] MEDS: MELATONIN 5 MG TABLETS PO PRN (22:25)
[2022-08-16] MEDS: PANTOPRAZOLE SODIUM 40 MG VIAL IVPUSH SCH ×3 (02:14→21:44)
[2022-08-16] MEDS: INSULIN SLIDING SCALE (NOVOLOG) 1 VIAL SQ SCH ×4 (06:33→21:42)
[2022-08-16] MEDS: SUCRALFATE 1 GM/10 ML UNIT DOSE CUPS PO SCH ×4 (11:18→21:38)
[2022-08-16] MEDS: SPIRONOLACTONE 25 MG TABLET PO SCH (11:18)
[2022-08-16] MEDS: ENALAPRIL MALEATE 2.5 MG TABLET PO SCH ×2 (11:18→21:44)
[2022-08-16] MEDS: POLYETHYLENE GLYCOL (HEALTHYLAX) 3350 17 GM PACKET PO SCH (11:19)
[2022-08-16] MEDS: metoPROLOL SUCCINATE 25 MG TAB.SR.24H (FP) PO SCH (11:19)
[2022-08-16] MEDS: oxyCODONE HCL 5 MG TABLET PO PRN ×2 (11:40→18:01)
[2022-08-16] MEDS: MELATONIN 5 MG TABLETS PO PRN (21:38)
[2022-08-17] MEDS: oxyCODONE HCL 5 MG TABLET PO PRN ×3 (00:33→17:13)
[2022-08-17] MEDS: INSULIN SLIDING SCALE (NOVOLOG) 1 VIAL SQ SCH ×4 (06:40→21:26)
[2022-08-17] MEDS: ENALAPRIL MALEATE 2.5 MG TABLET PO SCH ×2 (10:20→21:26)
[2022-08-17] MEDS: metoPROLOL SUCCINATE 25 MG TAB.SR.24H (FP) PO SCH (10:20)
[2022-08-17] MEDS: SUCRALFATE 1 GM/10 ML UNIT DOSE CUPS PO SCH ×2 (10:21→21:25)
[2022-08-17] MEDS: POLYETHYLENE GLYCOL (HEALTHYLAX) 3350 17 GM PACKET PO SCH ×3 (10:21→21:26)
[2022-08-17] MEDS: SPIRONOLACTONE 25 MG TABLET PO SCH (10:22)
[2022-08-17] MEDS: PANTOPRAZOLE SODIUM 40 MG VIAL IVPUSH SCH (10:22)
[2022-08-17] MEDS: ACETAMINOPHEN 325 MG TABLET (FP) PO PRN (17:12)
[2022-08-17] MEDS: MELATONIN 5 MG TABLETS PO PRN (21:26)
[2022-08-17 23:02] VITALS: RESP 18
[2022-08-18] MEDS: INSULIN SLIDING SCALE (NOVOLOG) 1 VIAL SQ SCH ×4 (06:23→22:05)
[2022-08-18] MEDS: POLYETHYLENE GLYCOL (HEALTHYLAX) 3350 17 GM PACKET PO SCH ×3 (06:23→22:01)
[2022-08-18] MEDS: oxyCODONE HCL 5 MG TABLET PO PRN ×3 (06:29→22:02)
[2022-08-18] MEDS: SPIRONOLACTONE 25 MG TABLET PO SCH (09:24)
[2022-08-18] MEDS: SUCRALFATE 1 GM/10 ML UNIT DOSE CUPS PO SCH ×2 (09:24→22:01)
[2022-08-18] MEDS: metoPROLOL SUCCINATE 25 MG TAB.SR.24H (FP) PO SCH (09:24)
[2022-08-18] MEDS: ENALAPRIL MALEATE 2.5 MG TABLET PO SCH ×2 (09:25→22:01)
[2022-08-18] MEDS: PANTOPRAZOLE 40 MG TABLET PO SCH (09:25)
[2022-08-18] MEDS: ACETAMINOPHEN 325 MG TABLET (FP) PO PRN ×2 (14:14→22:01)
[2022-08-18] MEDS: GABAPENTIN 100 MG CAPSULE PO SCH ×2 (18:23→22:01)
[2022-08-18] MEDS: MELATONIN 5 MG TABLETS PO PRN (22:01)
[2022-08-19] MEDS: POLYETHYLENE GLYCOL (HEALTHYLAX) 3350 17 GM PACKET PO SCH ×2 (06:18→14:34)
[2022-08-19] MEDS: GABAPENTIN 100 MG CAPSULE PO SCH ×2 (06:18→14:34)
[2022-08-19] MEDS: INSULIN SLIDING SCALE (NOVOLOG) 1 VIAL SQ SCH ×3 (06:19→16:32)
[2022-08-19] MEDS: oxyCODONE HCL 5 MG TABLET PO PRN ×2 (06:22→12:58)
[2022-08-19] MEDS: ACETAMINOPHEN 325 MG TABLET (FP) PO PRN ×2 (06:23→12:58)
[2022-08-19] MEDS: ENALAPRIL MALEATE 2.5 MG TABLET PO SCH (09:32)
[2022-08-19] MEDS: SUCRALFATE 1 GM/10 ML UNIT DOSE CUPS PO SCH (09:32)
[2022-08-19] MEDS: metoPROLOL SUCCINATE 25 MG TAB.SR.24H (FP) PO SCH (09:32)
[2022-08-19] MEDS: PANTOPRAZOLE 40 MG TABLET PO SCH (09:32)
[2022-08-19] MEDS: SPIRONOLACTONE 25 MG TABLET PO SCH (09:32)
[2022-08-19 14:56] VITALS: BP 150/85; PULSE 63; TEMP 98.1
== END 2022-08-19 19:00 | DRG 438 ==
LOC: JER 11:24 → JERBED 16:49 → J7W 22:26 → J5S 08-18 15:04 → J7W 08-18 15:05
PROVIDERS: ADMIT Internal Medicine; ATTEND Nurse Practitioner Family
DX: K85.90 Acute pancreatitis without necrosis or infection, unspecified (principal); J12.82 Pneumonia due to coronavirus disease 2019; J96.00 Acute respiratory failure, unspecified whether with hypoxia or hypercapnia; U07.1 COVID-19; I50.22 Chronic systolic (congestive) heart failure; I42.0 Dilated cardiomyopathy; L97.518 Non-pressure chronic ulcer of other part of right foot with other specified severity; I11.0 Hypertensive heart disease with heart failure; E78.5 Hyperlipidemia, unspecified; F17.200 Nicotine dependence, unspecified, uncomplicated; G47.30 Sleep apnea, unspecified; M48.00 Spinal stenosis, site unspecified; K21.00 Gastro-esophageal reflux disease with esophagitis, without bleeding; E11.621 Type 2 diabetes mellitus with foot ulcer; E66.9 Obesity, unspecified; Z68.34 Body mass index [BMI] 34.0-34.9, adult; Z95.810 Presence of automatic (implantable) cardiac defibrillator; Z89.422 Acquired absence of other left toe(s)
CPT/HCPCS: 0241U-QW; 36415; 71045-TC-FY; 74177-TC; 74178-TC; 76705-TC; 80053; 80061; 81003; 82150; 82787; 82962; 83605; 83690; 83735; 83880; 84443; 84484; 85025; 86038; 86140; 86301; 87086; 87324; 87449; 93005; 93010; 93306-TC; 97116-GP; 97161-GP; 99285-25; C9803-CS; Q9967; U0003; U0005